=== PATIENT | female | born 1970 | race Caucasian/White ===

== ENCOUNTER 2022-11-08 16:33 | Outpatient (CLI) | payer BC, SELFPAY | END 2022-11-08 16:34 | disposition home or self-care (01) | LOC: NFLDREF 16:35 | PROVIDERS: Visit Provider Family Medicine | DX: Z00.00 Encounter for general adult medical examination without abnormal findings (principal); E11.9 Type 2 diabetes mellitus without complications; I10 Essential (primary) hypertension; R53.83 Other fatigue; E55.9 Vitamin D deficiency, unspecified | CPT/HCPCS: 80048; 80061; 82306; 84443 ==

== ENCOUNTER 2023-06-29 02:46 | Emergency (ER) | payer BC, SELFPAY ==
[2023-06-29 02:52] VITALS: BP 195/87; PULSE 119; RESP 24; TEMP 37.6; O2SAT 95; BMI 28.3
--- NOTE | 2023-06-29 03:16 | ED.GENADULT ---
HPI - General Adult General Chief complaint: Fever Stated complaint: Shaking and cold, dry mouth Time Seen by Provider: 06/29/23 03:16 History of Present Illness HPI narrative: about an hour ago took cold medicine with acetametephen. patient c/o cold symptoms for the past week but tonight felt very weak and chilled. patient denies any sick contacts. patinet reports increased urination frequency and concern of a UTI. feels dehydrated. 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 Has had some increased urinary frequencies well as some mild dysuria. Has not measured any fever. She did take some cold medicine containing acetaminophen, phenylephrine and guaifenesin about an hour ago without relief. No rashes. Denies being short of breath. Denies cough. No sore throat. Related Data Home Medications Medication Instructions Recorded Confirmed aspirin 81 mg tablet,delayed 81 mg PO QPM 11/08/22 06/29/23 release Previous Rx's Medication Instructions Recorded pen needle, diabetic 31 gauge x #100 ea 01/17/2311/26 (CareTouch Pen Needle) amlodipine 5 mg tablet 5 mg PO QDAY #90 tabs 05/09/23 ergocalciferol (vitamin D2) 1,250 1,250 mcg PO QWEEK #13 caps 05/09/23 mcg (50,000 unit) capsule gabapentin 300 mg capsule 300 mg PO QHS #90 caps 05/09/23 glyburide 5 mg tablet 5 mg PO QDAY #90 tabs 05/09/23 insulin NPH-regular 70-30 U-100 See Rx Instructions subcut BID #30 05/09/23 insulin 100 unit/mL subcutaneous mL pen (Novolin 70-30 FlexPen U-100 Insulin) lisinopril 40 mg tablet 40 mg PO QDAY #90 tabs 05/09/23 metformin 1,000 mg tablet 1,000 mg PO BIDWMEAL #180 tabs 05/09/23 cephalexin 500 mg capsule 500 mg PO TID 7 days #21 caps 06/29/23 nirmatrelvir 300 mg (150 mg See Rx Instructions PO .COMPLEX 06/29/23 x2)-ritonavir 100 mg tablet,dose #30 ea pack (Paxlovid) Allergies Allergy/AdvReac Type Severity Reaction Status Date / Time No Known Drug Allergies Allergy Verified 06/09/23 18:48 PFSH PFSH Medical History (Updated 06/29/23 @ 19:55 by Santino Crowley MD) Mixed hyperlipidemia ?E78.2 - Mixed hyperlipidemia (ICD-10) Type 2 diabetes mellitus, with long-term current use of insulin ?E11.9 - Type 2 diabetes mellitus without complications (ICD-10) ?Z79.4 - termite control 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) use of insulin (ICD-10) Primary hypertension ?I10 - Essential (primary) hypertension (ICD-10) [place]-Walker grade 2 cystocele ?N81.10 - Cystocele, unspecified (ICD-10) Depression ?F32.A - Depression, unspecified (ICD-10) Diabetic neuropathy ?E11.40 - Type 2 diabetes mellitus with diabetic neuropathy, unspecified (ICD-10) Vitamin D deficiency ?E55.9 - Vitamin D deficiency, unspecified (ICD-10) Surgical History (Updated 05/10/23 @ 15:15 by Demetrius Farris MD) History of vaginal delivery History of 2 sections ?Z98.891 - History of uterine scar from previous surgery (ICD-10) History of tubal ligation (2006) ?Z98.51 - Tubal ligation status (ICD-10) Hx laparoscopic cholecystectomy (04/25/05) ?Z90.49 - Acquired absence of other specified parts of digestive tract (ICD-10) Family History (Updated 12/05/22 @ 11:18 by Yamilet Kay) Father Liver disease Alcohol dependence Brother Diabetes Mother Diabetes Son Family history of testicular cancer, Onset Age: 26 Other No family history of breast cancer No family history of colorectal cancer Social History (Updated 11/10/22 @ 23:36 by Demetrius Farris MD) Narrative: , three kids, 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 Breathing is subtly labored. No ketones detected. Is shivering. Skin is warm and dry. No rash. Heart is tachycardic in a regular rhythm. Lungs are clear. Oropharynx is moist. Come nerves 2 through 12 intact. Well-perfused peripherally. Abdomen is soft and nontender including flanks. She is sore to palpation in the upper back. Const: Vital Signs, click to edit/add: Vital Signs - 24 hr 06/29/23 02:52 Temperature 99.6 F Pulse Rate [Pulse Oximeter] 119 H Respiratory Rate 24 Blood Pressure [Ri ght Upper Arm] 195/87 H Pulse Oximetry 95 Oxygen Delivery Me thod Room Air Documenting provider has reviewed patient's vital signs: yes Course Vital Signs Vital signs: Initial Vital Signs Temperature 99.6 F 06/29/23 02:52 Temperature Source Oral 06/29/23 02:52 Pulse Rate 119 H 06/29/23 02:52 Respiratory Rate 24 06/29/23 02:52 Blood Pressure 195/87 H 06/29/23 02:52 Blood Pressure Mean 123 H 06/29/23 02:52 Blood Pressure Position Supine 06/29/23 02:52 Pulse Oximetry 95 06/29/23 02:52 Oxygen Delivery Method Room Air 06/29/23 02:52 Vital Signs Temperature 99.6 F 06/29/23 02:52 Pulse Rate 119 H 06/29/23 02:52 Respiratory Rate 24 06/29/23 02:52 Blood Pressure 195/87 H 06/29/23 02:52 Pulse Oximetry 95 06/29/23 02:52 Oxygen Delivery Method Room Air 06/29/23 02:52 Temperature 99.0 F 06/29/23 03:42 Pulse Rate 119 H 06/29/23 02:52 Respiratory Rate 24 06/29/23 02:52 Blood Pressure 195/87 H 06/29/23 02:52 Pulse Oximetry 95 06/29/23 02:52 Oxygen Delivery Method Room Air 06/29/23 02:52 Medications Administered Medications: Discontinued Medications Generic Name Dose Route Start Last Admin Trade Name Freq PRN Reason Stop Dose Admin Sodium Chloride 1,000 mls @ 1,000 mls/hr 06/29/23 03:50 06/29/23 04:19 0.9 % Sodium Chloride 1000 Ml IV 06/29/23 04:49 1,000 mls/hr .Q1H ONE Administration Ceftriaxone Sodium 1 gm/ 100 mls @ 200 mls/hr 12/17/23 03:50 06/29/23 04:19 Sodium Chloride IVPB 06/29/23 03:51 200 mls/hr ONCE ONE Administration Ibuprofen 800 mg 06/29/23 03:24 06/29/23 03:42 Ibuprofen 400 Mg Tablet PO 06/29/23 03:25 800 mg ONCE ONE Administration Medical Decision Making MDM Narrative Medical decision making narrative: I would suspect influenza here. Will triple swab. Also check urinalysis. Give ibuprofen. If urinalysis positive for infection might warrant further treatment with IV fluids and other lab work, particularly in the setting of diabetes Urinalysis does appear to be positive. Given symptoms I would have concern about more significant urinary tract infection. Symptoms also seem consistent with concurrent influenza or COVID infection Will collect blood cultures. Fluids. Rocephin Indeed positive for COVID. Have screened medications. Will initiate Paxlovid Urine blood cultures are pending. White count just a little more than 10,000 On reassessment following IV fluids and ibuprofen, does look improved, more comfortable. Blood pressure, pulse improved. Will continue on cephalexin pending results of cultures See patient discharge plan Lab Data Lab results reviewed: Yes I reviewed the patient's lab results Labs: Lab Results 06/29/23 06/29/23 06/29/23 Range/Units 00:40 03:06 03:07 WBC 10.45 (4.50-11.00) K/uL RBC 4.35 (4.00-5.20) m/uL Hgb 12.5 (12.0-16.0) gm/dL Hct 36.9 (33.0-51.0) % MCV 85 (80-100) fL MCH 29 (26-34) pg MCHC 34 (32-36) gm/dL RDW Coeff of [place] 12.9 (11.5-15.5) % Plt Count 238 (140-440) K/uL Neut % (Auto) 89.1 H (42.0-72.0) % Lymph % (Auto) 9.2 L (20-44) % [place] % (Auto) 0.4 (0.0-11.0) % Eos % (Auto) 0.2 (0.0-7.0) % Baso % (Auto) 0.1 (0.0-3.0) % Neut # (Auto) 9.30 H (1.7-7.0) K/uL Lymph # (Auto) 1.00 (0.90-2.90) K/uL [place] # (Auto) 0.00 (0.00-0.90) K/UL Eos # (Auto) 0.02 (0.00-0.50) K/uL Baso # (Auto) 0.01 (0.00-0.30) K/uL Abs Immat Gran (auto) 0.10 (0.00-0.30) K/uL Imm/Tot Granulo (auto) 1.0 % Diff Slide Review (Acceptable) Sodium 134 L (135-149) mmol/L Potassium 3.7 (3.6-5.1) mmol/L Chloride 102 (96-114) mmol/L Carbon Dioxide 18 L (20-32) mmol/L Anion Gap 14 (7-15) mEq/L BUN 21 (7-30) mg/dL Creatinine 0.6 (0.5-1.5) mg/dL Estimated Creat Clear 76.99 Estimated GFR 107 ml/min Glucose 304 H (60-115) mg/dL Calcium 8.8 (8.4-10.6) mg/dL Urine Color (Yellow) Urine Appearance (Clear) Urine pH (5.0-8.5) Ur Specific [place] (1.000-1.030) Urine Protein (Negative) Urine Glucose (UA) (Negative) Urine Ketones (Negative) Urine Blood (Negative) Urine Nitrite (Negative) Urine Bilirubin (Negative) Urine Urobilinogen (0.2-1.0) Ur Leukocyte Esterase (Negative) Urine RBC (0-2) Urine WBC (0-5) Ur Squamous Epith Cells (None-Few) Urine Bacteria (None) Fine Granular Casts (None) SARS-CoV-2 (PCR) POSITIVE SARS-CoV-2 A (Negative) Influenza Type A (PCR) Negative PCR FLU A (Negative) Influenza Type B (PCR) Negative PCR FLU B (Negative) RSV (PCR) Negative PCR RSV (Negative) Group A Strep DNA (Not Detectd) 06/29/23 Range/Units 03:24 WBC (4.50-11.00) K/uL RBC (4.00-5.20) m/uL Hgb (12.0-16.0) gm/dL Hct (33.0-51.0) % MCV (80-100) fL MCH (26-34) pg MCHC (32-36) gm/dL RDW Coeff of [place] (11.5-15.5) % Plt Count (140-440) K/uL Neut % (Auto) (42.0-72.0) % Lymph % (Auto) (20-44) % [place] % (Auto) (0.0-11.0) % Eos % (Auto) (0.0-7.0) % Baso % (Auto) (0.0-3.0) % Neut # (Auto) (1.7-7.0) K/uL Lymph # (Auto) (0.90-2.90) K/uL [place] # (Auto) (0.00-0.90) K/UL Eos # (Auto) (0.00-0.50) K/uL Baso # (Auto) (0.00-0.30) K/uL Abs Immat Gran (auto) (0.00-0.30) K/uL Imm/Tot Granulo (auto) % Diff Slide Review (Acceptable) Sodium (135-149) mmol/L Potassium (3.6-5.1) mmol/L Chloride (96-114) mmol/L Carbon Dioxide (20-32) mmol/L Anion Gap (7-15) mEq/L BUN (7-30) mg/dL Creatinine (0.5-1.5) mg/dL Estimated Creat Clear Estimated GFR ml/min Glucose (60-115) mg/dL Calcium (8.4-10.6) mg/dL Urine Color Yellow (Yellow) Urine Appearance Cloudy A (Clear) Urine pH 6.0 (5.0-8.5) Ur Specific [place] 1.025 (1.000-1.030) Urine Protein 3+ A (Negative) Urine Glucose (UA) 2+ A (Negative) Urine Ketones Negative (Negative) Urine Blood 1+ A (Negative) Urine Nitrite Positive A (Negative) Urine Bilirubin Negative (Negative) Urine Urobilinogen 0.2 (0.2-1.0) Ur Leukocyte Esterase Negative (Negative) Urine RBC 0-2 (0-2) Urine WBC 25-50 A (0-5) Ur Squamous Epith Cells Few (None-Few) Urine Bacteria Moderate A (None) Fine Granular Casts Few A (None) SARS-CoV-2 (PCR) (Negative) Influenza Type A (PCR) (Negative) Influenza Type B (PCR) (Negative) RSV (PCR) (Negative) Group A Strep DNA NOT DETECTED (Not Detectd) Discharge Plan Discharge Clinical Impression: COVID-19, Cystitis Patient Disposition: Home, Self-Care Condition: Improved Additional Instructions: You will need to watch and treat your blood sugars carefully. Focus on hydration with water. We do not have the medication for COVID in the med box in our lobby so I have sent in that prescription and an antibiotic for you to your pharmacy. Can take up to 800 mg of ibuprofen per dose or up to 1000 mg of acetaminophen per dose. Deber? vigilar y tratar harrison niveles de az?car en la zack con cuidado. Enf?tonya en la hidrataci?n con agua. No tenemos el medicamento para COVID en la caja de medicamentos en nuestro vest?bulo, as? que le envi? yas receta y un antibi?tiburcio a coreas farmacia. Puede arslan hasta 800 mg de ibuprofeno por dosis o hasta 1000 mg de paracetamol por dosis. Prescriptions: New Paxlovid 300 mg (150 mg x 2)-100 mg tablets,dose pack See Rx Instructions .ROUTE .COMPLEX Qty: 30 0RF Rx Instructions: take TWO 150 mg tablets of nirmatrelvir with ONE 100 mg tablet of ritonavir twice daily for 5 days cephalexin 500 mg capsule 500 mg PO TID 7 Days Qty: 21 0RF No Action aspirin 81 mg tablet,delayed release (DR/EC) 81 mg PO QPM (DME) pen needle, diabetic [CareTouch Pen Needle] 31 gauge x 5/16 needle See Rx Instructions .Route Qty: 100 5RF Rx Instructions: Injects BID ergocalciferol (vitamin D2) 1,250 mcg (50,000 unit) capsule 1,250 mcg PO QWEEK Qty: 13 3RF gabapentin 300 mg capsule 300 mg PO QHS Qty: 90 3RF glyburide 5 mg tablet 5 mg PO QDAY Qty: 90 1RF Novolin 70-30 FlexPen U-100 100 unit/mL (70-30) insulin pen See Rx Instructions subcut BID Qty: 30 5RF Rx Instructions: subcutaneously twice a day; 40 units am and 35 units pm lisinopril 40 mg tablet 40 mg PO QDAY Qty: 90 3RF amlodipine 5 mg tablet 5 mg PO QDAY Qty: 90 1RF metformin 1,000 mg tablet 1,000 mg PO BIDWMEAL Qty: 180 1RF Follow Up/Referrals: Demetrius Farris MD [Primary Care Provider] - Stand Alone Forms: [facility] Info Instructions
[2023-06-29 03:39] LABS: Appearance Urine Cloudy (Clear); Bilirubin Urine Negative (Negative); Blood Urine 1+ (Negative); Color Urine Yellow (Yellow); Glucose Urine 2+ (Negative); Ketones Urine Negative (Negative); Leukocyte Esterase Urine Negative (Negative); Nitrite Urine Positive (Negative); Protein Urine 3+ (Negative); Specific Gravity Urine 1.025 (1.000-1.030); Urobilinogen Urine 0.2 (0.2-1.0)
[2023-06-29 03:42] VITALS: TEMP 37.2
[2023-06-29] MEDS: IBUPROFEN 400 MG TABLET 800 MG PO (03:42)
[2023-06-29 03:47] LABS: Bacteria Urine Moderate; RBC Urine 0-2 (0-2); Squamous Epithelial Cell Urine Few (None-Few); WBC Urine 25-50 (0-5)
[2023-06-29 03:48] LABS: Fine Granular Casts Urine Few
[2023-06-29 04:03] LABS: PCR FLU A Negative PCR FLU A (Negative); PCR FLU B Negative PCR FLU B (Negative); PCR RSV Negative PCR RSV (Negative)
[2023-06-29 04:14] LABS: SARS PCR* POSITIVE SARS-CoV-2 (Negative)
[2023-06-29 04:14] LABS: Strep A DNA Probe* NOT DETECTED (Not Detectd)
[2023-06-29 04:16] LABS: Basophils Absolute Auto 0.01 K/uL (0.00-0.30); Basophils Percent Auto 0.1 % (0.0-3.0); Eosinophils Absolute Auto 0.02 K/uL (0.00-0.50); Eosinophils Percent Auto 0.2 % (0.0-7.0); Hematocrit 36.9 % (33.0-51.0); Hemoglobin* 12.5 gm/dL (12.0-16.0); Lymphocytes Percent Auto 9.2 % (20-44); Mean Corpuscular HGB Conc 34 gm/dL (32-36); Mean Corpuscular Hemoglobin 29 pg (26-34); Mean Corpuscular Volume 85 fL (80-100); Monocytes Percent Auto 0.4 % (0.0-11.0); Neutrophils Percent Auto 89.1 % (42.0-72.0); Platelet Count* 238 K/uL (140-440); RDW Coefficient of Variation % 12.9 % (11.5-15.5); Red Blood Count 4.35 m/uL (4.00-5.20); White Blood Count* 10.45 K/uL (4.50-11.00)
[2023-06-29] MEDS: 0.9 % SODIUM CHLORIDE 1000 ml 1,000 ML IV (04:19)
[2023-06-29] MEDS: cefTRIAXone 1 GM in 0.9 % SODIUM CHLORIDE Mini-bag 100 ML IVPB (04:19)
[2023-06-29 04:20] LABS: Slide Review Reflex Yes
[2023-06-29 04:28] LABS: Chloride* 102 mmol/L (96-114); Potassium* 3.7 mmol/L (3.6-5.1); Sodium* 134 mmol/L (135-149)
[2023-06-29 04:31] LABS: Anion Gap 14 mEq/L (7-15); Blood Urea Nitrogen* 21 mg/dL (7-30); Calcium* 8.8 mg/dL (8.4-10.6); Carbon Dioxide* 18 mmol/L (20-32); Creatinine* 0.6 mg/dL (0.5-1.5); Est. Creatinine Clearance* 76.99; Estimated Glomerular Filt Rate 107 ml/min; Glucose* 304 mg/dL (60-115)
--- NOTE | 2023-06-29 10:14 | ED.NURSE ---
[facility] called for date of diagnosis, when symptoms started and kidney function before they fill paxlovid prescription
--- NOTE | 2023-06-29 16:30 | ED.NURSE ---
Critical recieved from lab, gram negative rods in both sets of blood cultures.
--- NOTE | 2023-06-29 16:31 | ED.NURSE ---
that is on site in the ER is aware.
--- NOTE | 2023-06-29 16:33 | ED.NURSE ---
Called pt phone number on file to notify pt for blood cultures and to come back for re-evaluation. Went to voicemail, left a voicemail for pt.
--- NOTE | 2023-06-30 20:32 | ED_ITS ---
ED Chart Note Chart Note Details Date: 06/30/23 Details: Received information from lab regarding blood cultures. Confirmed with labs that all sets of cultures have gone positive for E coli. Ms. Herron did return later the 1st day of treatment on the as was noted to be growing Gram- negative rods. Was given a 2nd dose of Rocephin and told to continue with antibiotics. Lactate at that time I believe was 1.2. White count however had doubled from 10,000 to a little over 21,000. Was no longer tachycardic as well on that 2nd presentation. I reviewed blood cultures confirming E coli in a row back and anaerobic cultures, 2 sets as well as urine. Sensitivities would suggest appropriate treatment with cephalexin that she was prescribed. I do call Ms. Herron to inquire as to her well-being. She reports feeling much better than yesterday. Is no longer chilled. She says she is not having a rapid heart rate. She is not nauseated. Is monitoring blood sugars. Has improved energy. Given subjective improvement it would appear that can continue current treatment. Discussed that if begins to feel worse, chilled/driving fevers, that she should present again for evaluation.
== END 2023-06-29 05:56 | disposition home or self-care (01) ==
PROVIDERS: Emergency Provider Family Medicine; PCP Family Medicine
DX: U07.1 COVID-19 (principal); N30.90 Cystitis, unspecified without hematuria
CPT/HCPCS: 36415; 80048; 81001; 83605; 85025; 87040; 87086; 87186; 87631; 87651; 95992; 96365; 96366; 99284; A9270; J0696; J7030

== ENCOUNTER 2023-06-29 19:16 | Emergency (ER) | payer BC, SELFPAY ==
[2023-06-29 19:39] VITALS: BP 135/73; PULSE 98; RESP 16; TEMP 36.4; O2SAT 97; BMI 28.5
--- NOTE | 2023-06-29 19:51 | ED_ITS ---
HPI - General Adult General Chief complaint: Unspecified Complaint, Adult Stated complaint: abnormal lab results Time Seen by Provider: 06/29/23 19:26 History of Present Illness HPI narrative: This 53-year-old female was seen early this morning in this emergency department and diagnosed with a urinary tract infection. She received a g of Rocephin intravenously and states that she is feeling better. A blood culture results returned positive for a Gram-negative ryan so the patient was instructed to come in here again for recheck. She arrives here with normal vital signs and has not had any fevers. She states that she is feeling better. Related Data Home Medications Medication Instructions Recorded Confirmed aspirin 81 mg tablet,delayed 81 mg PO QPM 11/08/22 06/29/23 release Previous Rx's Medication Instructions Recorded pen needle, diabetic 31 gauge x #100 ea 01/17/2311/26 (CareTouch Pen Needle) amlodipine 5 mg tablet 5 mg PO QDAY #90 tabs 05/09/23 ergocalciferol (vitamin D2) 1,250 1,250 mcg PO QWEEK #13 caps 05/09/23 mcg (50,000 unit) capsule gabapentin 300 mg capsule 300 mg PO QHS #90 caps 05/09/23 glyburide 5 mg tablet 5 mg PO QDAY #90 tabs 05/09/23 insulin NPH-regular 70-30 U-100 See Rx Instructions subcut BID #30 05/09/23 insulin 100 unit/mL subcutaneous mL pen (Novolin 70-30 FlexPen U-100 Insulin) lisinopril 40 mg tablet 40 mg PO QDAY #90 tabs 05/09/23 metformin 1,000 mg tablet 1,000 mg PO BIDWMEAL #180 tabs 05/09/23 cephalexin 500 mg capsule 500 mg PO TID 7 days #21 caps 06/29/23 nirmatrelvir 300 mg (150 mg See Rx Instructions PO .COMPLEX 06/29/23 x2)-ritonavir 100 mg tablet,dose #30 ea pack (Paxlovid) Allergies Allergy/AdvReac Type Severity Reaction Status Date / Time No Known Drug Allergies Allergy Verified 06/09/23 18:48 Review of Systems Status of ROS: Reports: 10 or more systems reviewed and unremarkable except as noted in History and below Narrative: Constitutional: No fevers, no weight gain or loss. Eyes: No discharge. No vision changes. HENT: No congestion, no sore throat, no ear pain. Cardiovascular: No chest pain, no palpitations. Respiratory: No shortness of breath, no wheezes, no cough. Gastrointestinal: No abdominal pain, no vomiting, no diarrhea. Genitourinary: No dysuria, no hematuria. Musculoskeletal: Normal range of motion. Skin: No rashes, no pruritis. Neurological: No dizziness, weakness, sensory change, speech change. Endo/Heme/Allergies: No bruising or bleeding. No polydipsia. Pysch: no suicidality, no anxiety, no insomnia. All other systems reviewed and are negative. [facility] Medical History (Updated 06/29/23 @ 19:55 by Santino Crowley MD) Mixed hyperlipidemia ?E78.2 - Mixed hyperlipidemia (ICD-10) Type 2 diabetes mellitus, with long-term current use of insulin ?E11.9 - Type 2 diabetes mellitus without complications (ICD-10) ?Z79.4 - senior care (current) use of insulin (ICD-10) Primary hypertension ?I10 - Essential (primary) hypertension (ICD-10) [place]-Walker grade 2 cystocele ?N81.10 - Cystocele, unspecified (ICD-10) Depression ?F32.A - Depression, unspecified (ICD-10) Diabetic neuropathy ?E11.40 - Type 2 diabetes mellitus with diabetic neuropathy, unspecified (ICD-10) Vitamin D deficiency ?E55.9 - Vitamin D deficiency, unspecified (ICD-10) Surgical History (Updated 05/10/23 @ 15:15 by Demetrius Farris MD) History of vaginal delivery History of 2 sections ?Z98.891 - History of uterine scar from previous surgery (ICD-10) History of tubal ligation (2006) ?Z98.51 - Tubal ligation status (ICD-10) Hx laparoscopic cholecystectomy (04/25/05) ?Z90.49 - Acquired absence of other specified parts of digestive tract (ICD- 10) Family History (Updated 12/05/22 @ 11:18 by Yamilet Kay) Father Liver disease Alcohol dependence Brother Diabetes Mother Diabetes Son Family history of testicular cancer, Onset Age: 26 Other No family history of breast cancer No family history of colorectal cancer Social History (Updated 11/10/22 @ 23:36 by Demetrius Farris MD) Narrative: , 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 HEENT: Normocephalic, atraumatic. Neck: Normal range of motion. Nontender. Supple. Heart: Regular. No murmurs. Normal rate. Intact distal pulses. Lungs: Clear to auscultation. No chest discomfort. No wheezes, rhonchi, or rale s. Abdomen: Normal bowel sounds. Nontender. No rebound tenderness. Genitalia: Deferred. Back: No midline tenderness. Normal range of motion. Extremities: Normal range of motion. No injury. Skin: Intact. No rash. Warm. No erythema or pallor. Neurologic: No altered sensation. No weakness. Alert and oriented. Psychiatric: No suicidality. No anxiety or depression. No insomnia. Nursing notes and vitals signs are reviewed. Const: Vital Signs, click to edit/add: Vital Signs - 24 hr 06/29/23 19:39 Temperature 97.6 F Pulse Rate [Left P ulse Oximeter] 98 Respiratory Rate 16 Blood Pressure [Ri ght Upper Arm] 135/73 Pulse Oximetry 97 Oxygen Delivery Me thod Room Air Course Vital Signs Vital signs: Initial Vital Signs Temperature 97.6 F 06/29/23 19:39 Temperature Source Temporal Artery Scan 06/29/23 19:39 Pulse Rate 98 06/29/23 19:39 Pulse Rhythm Regular 06/29/23 19:39 Respiratory Rate 16 06/29/23 19:39 Blood Pressure 135/73 06/29/23 19:39 Blood Pressure Mean 93 06/29/23 19:39 Blood Pressure Position Semi-Fowlers 06/29/23 19:39 Pulse Oximetry 97 06/29/23 19:39 Oxygen Delivery Method Room Air 06/29/23 19:39 Vital Signs Temperature 97.6 F 06/29/23 19:39 Pulse Rate 98 06/29/23 19:39 Respiratory Rate 16 06/29/23 19:39 Blood Pressure 135/73 06/29/23 19:39 Pulse Oximetry 97 06/29/23 19:39 Oxygen Delivery Method Room Air 06/29/23 19:39 Temperature 97.6 F 06/29/23 19:39 Pulse Rate 98 06/29/23 19:39 Respiratory Rate 16 06/29/23 19:39 Blood Pressure 135/73 06/29/23 19:39 Pulse Oximetry 97 06/29/23 19:39 Oxygen Delivery Method Room Air 06/29/23 19:39 Medications Administered Medications: Generic Name Dose Route Start Last Admin Trade Name Freq PRN Reason Stop Dose Admin Ceftriaxone Sodium 1 gm 06/29/23 19:50 06/29/23 20:20 Ceftriaxone 1 Gm Vial IM 06/29/23 19:51 1 gm ONCE ONE Administration Lidocaine HCl 2.1 ml 06/29/23 19:50 06/29/23 20:20 Lidocaine 1% 5 Ml (Pf) 5 Ml Vial IM 2.1 ml DIRECTED PRN Administration Pain Medical Decision Making MDM Narrative Medical decision making narrative: This patient was treated with Rocephin for a urinary tract infection early this morning. She states that she is feeling better but returns as she was instructed to do so to recheck as a blood culture returned positive for Gram- negative ryan. The patient has not had any fevers. She did receive an additional dose of Rocephin 1 g intramuscularly. Labs are also recheck it at this visit and returned with lactate level at 1.2. Her white cell count is elevated at around 21. The patient does have normal vital signs with no fever or tachycardia. The patient is okay to return home to continue the prescribed oral medication that she has. I advised her to return if fevers recur or if feeling worse. The patient is agreeable with this plan. Lab Data Labs: Lab Results 06/29/23 Range/Units 20:05 WBC 21.94 H (4.50-11.00) K/uL RBC 4.21 (4.00-5.20) m/uL Hgb 12.1 (12.0-16.0) gm/dL Hct 36.3 (33.0-51.0) % MCV 86 (80-100) fL MCH 29 (26-34) pg MCHC 33 (32-36) gm/dL RDW Coeff of [place] 13.2 (11.5-15.5) % Plt Count 229 (140-440) K/uL Neut % (Auto) 88.5 H (42.0-72.0) % Lymph % (Auto) 6.4 L (20-44) % [place] % (Auto) 4.2 (0.0-11.0) % Eos % (Auto) 0.6 (0.0-7.0) % Baso % (Auto) 0.0 (0.0-3.0) % Neut # (Auto) 19.40 H (1.7-7.0) K/uL Lymph # (Auto) 1.40 (0.90-2.90) K/uL [place] # (Auto) 0.90 (0.00-0.90) K/UL Eos # (Auto) 0.10 (0.00-0.50) K/uL Baso # (Auto) 0.00 (0.00-0.30) K/uL Abs Immat Gran (auto) 0.10 (0.00-0.30) K/uL Imm/Tot Granulo (auto) 0.3 % Lactate 1.2 (0.5-1.9) mmol/L Discharge Plan Discharge Clinical Impression: Urinary tract infection, Blood bacterial culture positive Patient Disposition: Home, Self-Care Condition: Stable Additional Instructions: Continue current plans. Follow up with MD return if worsening symptoms happen. Prescriptions: No Action aspirin 81 mg tablet,delayed release (DR/EC) 81 mg PO QPM (DME) pen needle, diabetic [CareTouch Pen Needle] 31 gauge x 5/16 needle See Rx Instructions .Route Qty: 100 5RF Rx Instructions: Injects BID ergocalciferol (vitamin D2) 1,250 mcg (50,000 unit) capsule 1,250 mcg PO QWEEK Qty: 13 3RF gabapentin 300 mg capsule 300 mg PO QHS Qty: 90 3RF glyburide 5 mg tablet 5 mg PO QDAY Qty: 90 1RF Novolin 70-30 FlexPen U-100 100 unit/mL (70-30) insulin pen See Rx Instructions subcut BID Qty: 30 5RF Rx Instructions: subcutaneously twice a day; 40 units am and 35 units pm lisinopril 40 mg tablet 40 mg PO QDAY Qty: 90 3RF amlodipine 5 mg tablet 5 mg PO QDAY Qty: 90 1RF metformin 1,000 mg tablet 1,000 mg PO BIDWMEAL Qty: 180 1RF Paxlovid 300 mg (150 mg x 2)-100 mg tablets,dose pack See Rx Instructions .ROUTE .COMPLEX Qty: 30 0RF Rx Instructions: take TWO 150 mg tablets of nirmatrelvir with ONE 100 mg tablet of ritonavir twice daily for 5 days cephalexin 500 mg capsule 500 mg PO TID 7 Days Qty: 21 0RF Follow Up/Referrals: Demetrius Farris MD [Primary Care Provider] - Stand Alone Forms: [facility] Info Instructions
[2023-06-29 20:11] LABS: Lactate* 1.2 mmol/L (0.5-1.9)
[2023-06-29 20:15] LABS: Eosinophils Percent Auto 0.6 % (0.0-7.0); Hematocrit 36.3 % (33.0-51.0); Hemoglobin* 12.1 gm/dL (12.0-16.0); Immature Granulocytes Pct Auto 0.3 %; Lymphocytes Percent Auto 6.4 % (20-44); Mean Corpuscular HGB Conc 33 gm/dL (32-36); Mean Corpuscular Hemoglobin 29 pg (26-34); Mean Corpuscular Volume 86 fL (80-100); Monocytes Percent Auto 4.2 % (0.0-11.0); Neutrophils Percent Auto 88.5 % (42.0-72.0); Platelet Count* 229 K/uL (140-440); RDW Coefficient of Variation % 13.2 % (11.5-15.5); Red Blood Count 4.21 m/uL (4.00-5.20); White Blood Count* 21.94 K/uL (4.50-11.00)
[2023-06-29] MEDS: cefTRIAXone 1 GM VIAL IM (20:20)
[2023-06-29] MEDS: LIDOCAINE 1% 5 ml (pf) 5 ML VIAL 2.1 ML IM (20:20)
[2023-06-29 20:23] LABS: Slide Review Reflex No
== END 2023-06-29 21:03 | disposition home or self-care (01) ==
LOC: ED 19:56
PROVIDERS: Emergency Provider Emergency Medicine Emergency Medical Services; PCP Family Medicine
DX: U07.1 COVID-19 (principal)
CPT/HCPCS: 36415; 83605; 85025; 95992; 99284; J0696

== ENCOUNTER 2023-08-01 09:42 | Outpatient (CLI) | payer BC, SELFPAY ==
--- OUTSIDE RECORDS SUMMARY | 2023-08-01 09:45 | XMS_ITS | Clinical Summary ---
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 Increase to 2 pills after 5 days if not improving. 60 capsule 12 06/12/2016 Active ferrous sulfate 325 mg delayed release tabletIndications:I mukesh deficiency anemia, unspecified Take 1 tablet by mouth once daily with a meal. 90 tablet 4 06/12/2016 Active fluconazole (DIFLUCAN) 150 mg tabletIndications:V aginal itching One pill by mouth today, repeat on friday 2 tablet 1 01/31/2017 Active blood sugar diagnostic (GLUCOCARD 01 SENSOR PLUS) stripIndications:In sulin dependent type 2 diabetes mellitus, uncontrolled As directed. Dispense test strips covered by the patient insurance. Test 3 times per day. 100 Each 4 02/12/2017 Active lisinopril (PRINIVIL; ZESTRIL) 20 mg tabletIndications:U ncontrolled hypertension Take 1 tablet by mouth once daily. 90 tablet 4 02/12/2017 Active metFORMIN (GLUCOPHAGE) 1,000 mg tabletIndications:D M (diabetes mellitus) with complications (HC) Take 1 tablet by mouth 2 times daily with meals. 180 tablet 3 02/12/2017 Active insulin NPH human recomb (NOVOLIN N) 100 unit/mL susp injectionIndication s:DM (diabetes mellitus) with complications (HC) 20-25 units at breakfast and 35-40 units at dinner. Adjust per clinic instructions 2 Vial 20 02/12/2017 Active rosuvastatin (CRESTOR) 10 mg tablet Take 1 tablet by mouth at bedtime. 90 tablet 3 02/25/2017 Active Active Problems Problem Noted Date Diagnosed Date Hyperlipidemia, unspecified 03/16/2016 Diabetic peripheral neuropathy 03/16/2016 Major depression in partial remission 10/25/2008 Unspecified essential hypertension 10/14/2006 DIABETES TYPE II WITH COMPLICATION 08/25/2002 Immunizations Name Administration Dates Next Due HepA-HepB (Twinrix) 09/17/2013 Influenza A (H1N1), Inactiva patel (Age >=3 Years) 07/11/2009 Influenza, IIV3 (Age >=3 years) 05/18/2013,04/20,07/11/2009 Td, Preservative Free (age >= 7 Years) 7 Tdap 01/31/2017 Family History Medical History Relation Name Comments Diabetes Brother Alcoholism Father at 44 Cirrhosis Father Anemia Mother whe n patient [age] year old. Testicular cancer Other son at 26- did well Cancer-breast No Family History Cancer-colon No Family History Relation Name Status Comments Brother Father Mother Other Social History Tobacco Use Types Packs/Day Years Used Date Smoking Tobacco: Never Smokeless Tobacco: Never Tobacco Cessation:Counseling Given: Yes Alcohol Use Standard Drinks/Week Comments No 0 (1 standard drink = 0.6 oz pur e alcohol) Sex and Gender Information Value Date Recorded Sex Assigned at Not on file Gender Identity Not on file Sexual Orientation Not on file Obstetrics History Para Term AB IAB SAB Ectopic Multiple Livin g Live Births 4 3 3 1 1 3 Date Outcome GA Total Labor Labor/2nd/3rd Weight Sex Delivery Anes PTL Jennyfer A1 A5 Name Cl in Term Term SAB Term Comments Vaginal, then 2 C/S Last Filed Vital Signs Vital Sign Reading Time Taken Comments Blood Pressure 128/75 02/12/2017 1:47 PM CDT Pulse 91 02/12/2017 1:44 PM CDT Temperature 36.5 ??C (97.7 ??F) 01/31/2017 3:37 PM CD T Respiratory Rate - - Oxygen Saturation 97% 01/31/2017 3:37 PM CDT Inhaled Oxygen Concentration - - Weight 68 kg (150 lb) 02/12/2017 1:44 PM CDT Height 149.2 cm (4' 10.75) 01/31/2017 3:37 PM C DT Body Mass Index 30.55 01/31/2017 3:37 PM CDT Plan of Treatment Health Maintenance Due Date Last Done Comments COVID-19 vaccine series (#1) 1969 HIV for age 15-65 1984 Hepatitis C screening for age 18-79 1987 Colonoscopy through age 75 2014 BMI (ht and wt on same day) for age 18+ 01/31/2018 01/31/2017, 11/27/2016, 08/28/2016, Additional history exists Depression screening for age 12+ 01/31/2018 01/31/2017, 01/12/2016 Zoster (shingles) series for age 50+ (1 of 2) 2019 Mammogram for age 45-75 02/13/2022 02/14/20 21, 01/31/2017, 01/19/2016, Additional history exists Influenza for age 50-64 03/14/2023 05/18/20 13, 04/20/2010, 07/11/2009, Additional history exists Pap test for age 21-65 01/18/2024 1, 01/17/2021, 01/12/2016, Additional history exists Tetanus booster 01/31/2027 01/31/2017, 05/22/2007 Lipids for age 45-75 02/06/2027 02/06/2022, 06/10/2016, 02/27/2015, Additional history exists Tdap Completed 01/31/2017 Pneumococcal series for age 6-64 Aged Out No longer eligible based on patient's age to complete this topic
--- NOTE | 2023-08-01 10:15 | CRLHL7_ITS ---
For Patients: As a result of the Century Cures Act, medical imaging exams and procedure reports are released immediately into your electronic medical record. You may view this report before your referring provider. If you have questions, please contact your health care provider. BILATERAL SCREENING MAMMOGRAM WITH COMPUTER-AIDED DETECTION AND TOMOSYNTHESIS TECHNIQUE: CC and MLO views were obtained. These mammographic images have been obtained using full-field digital technique. These mammographic images were interpreted with the benefit of computer-aided detection. Breast Tomosynthesis was used in this interpretation. COMPARISON FILM: 02/13/21, 01/31/17, 01/19/16. FINDINGS: There are scattered areas of fibroglandular density. IMPRESSION: There is no radiographic evidence for malignancy. ASSESSMENT: BI-RADS Category 1: Negative RECOMMENDATION: Routine screening mammogram in 1 year. A lay language report of this examination will be provided to the patient. Demetrius Serrano M.D. Diagnostic Radiologist [email or web address] SP/Dictated by: Demetrius Serrano MD @ 08/01/2023 12:09:00 PM (Electronically Signed)
== END 2023-08-01 09:43 | disposition home or self-care (01) ==
LOC: MAMMO 09:42
PROVIDERS: PCP Family Medicine; Visit Provider Family Medicine
DX: Z12.31 Encounter for screening mammogram for malignant neoplasm of breast (principal)
CPT/HCPCS: 77063; 77067; T1013

== ENCOUNTER 2023-08-15 16:02 | Outpatient (CLI) | payer BC, SELFPAY | END 2023-08-15 16:03 | disposition home or self-care (01) | PROVIDERS: PCP Family Medicine; Visit Provider Family Medicine | DX: E55.9 Vitamin D deficiency, unspecified (principal); E11.9 Type 2 diabetes mellitus without complications; E78.2 Mixed hyperlipidemia; I10 Essential (primary) hypertension; Z79.4 Long term (current) use of insulin | CPT/HCPCS: 80076; 82306 ==

== ENCOUNTER 2024-01-12 19:38 | Emergency (ER) | payer BC, SELFPAY ==
[2024-01-12 19:59] VITALS: BP 160/80; PULSE 124; RESP 18; TEMP 36.6; O2SAT 98
--- NOTE | 2024-01-12 20:42 | ED.NAVMDI ---
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 No cough, no fever. Took Tylenol for this earlier. No recorded fever. Denies abdominal pain, chest pain, cough, runny nose, does have a headache. No known ill contacts. <Lul Denson MD - Last Filed: 01/12/24 23:51> Related Data Home medications: Home Medications ?Medication ?Instructions ?Recorded ?Confirmed aspirin 81 mg tablet,delayed 81 mg PO QPM 11/08/22 11/21/23 release Previous Rx's ?Medication ?Instructions ?Recorded pen needle, diabetic 31 gauge x #100 ea 01/17/2311/26 (CareTouch Pen Needle) ergocalciferol (vitamin D2) 1,250 1,250 mcg PO QWEEK #13 caps 05/09/23 mcg (50,000 unit) capsule lisinopril 40 mg tablet 40 mg PO QDAY #90 tabs 05/09/23 amlodipine 10 mg tablet 10 mg PO QDAY #90 tabs 08/15/23 ondansetron 4 mg disintegrating 4 mg PO Q6H #5 tabs 10/24/23 tablet gabapentin 100 mg capsule 100 mg PO BID #60 caps 11/21/23 gabapentin 300 mg capsule 600 mg (2 x 300 mg) PO QPM #180 11/21/23 caps glyburide 5 mg tablet 5 mg PO QDAY #90 tabs 11/21/23 insulin NPH-regular 70-30 U-100 40 unit (0.4 mL) subcut BID #60 mL 11/21/23 insulin 100 unit/mL subcutaneous pen (Novolin 70-30 FlexPen U-100 Insulin) metformin 1,000 mg tablet 1,000 mg PO BIDWMEAL #180 tabs 11/21/23 naproxen 500 mg tablet 500 mg PO BID #180 tabs 11/21/23 ciprofloxacin HCl 500 mg tablet 500 mg PO Q12H #10 tabs 01/13/24 ondansetron 4 mg disintegrating 4 mg PO Q8H PRN nausea and 01/13/24 tablet vomiting #7 tabs <Lul Denson MD - Last Filed: 01/12/24 23:51> Allergies/Adverse reactions: Allergies Allergy/AdvReac Type Severity Reaction Status Date / Time No Known Drug Allergies Allergy Verified 11/21/23 14:21 <Lul Denson MD - Last Filed: 01/12/24 23:51> [facility] Medical History: Medical History (Updated 01/13/24 @ 00:52 by Marcella Ortega MD) COVID-19 ?U07.1 - COVID-19 (ICD-10) Mixed hyperlipidemia ?E78.2 - Mixed hyperlipidemia (ICD-10) Type 2 diabetes mellitus, with long-term current use of insulin ?E11.9 - Type 2 diabetes mellitus without complications (ICD-10) ?Z79.4 - MCFP (current) use of insulin (ICD-10) Primary hypertension ?I10 - Essential (primary) hypertension (ICD-10) [place] grade 2 cystocele ?N81.10 - Cystocele, unspecified (ICD-10) Depression ?F32.A - Depression, unspecified (ICD-10) Diabetic neuropathy ?E11.40 - Type 2 diabetes mellitus with diabetic neuropathy, unspecified (ICD-10) Vitamin D deficiency ?E55.9 - Vitamin D deficiency, unspecified (ICD-10) <Lul Denson MD - Last Filed: 01/12/24 23:51> Surgical History: Surgical History History of vaginal delivery History of 2 sections ?Z98.891 - History of uterine scar from previous surgery (ICD-10) History of tubal ligation (2006) ?Z98.51 - Tubal ligation status (ICD-10) Hx laparoscopic cholecystectomy (04/25/05) ?Z90.49 - Acquired absence of other specified parts of digestive tract (ICD-10) <Lul Denson MD - Last Filed: 01/12/24 23:51> Family History: Family History Father Liver disease Alcohol dependence Brother Diabetes Mother Diabetes Son Family history of testicular cancer, Onset Age: 26 Other No family history of breast cancer No family history of colorectal cancer <Lul Denson MD - Last Filed: 01/12/24 23:51> Social History: Social History Narrative: , three kids, 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 [employer], nonsmoker, no EtOH Smoking Status: Never smoker Do you use any of these nicotine containing products: None Second hand tobacco smoke exposure: No How often do you have a drink containing alcohol: never AUDIT-C Alcohol total score: 0 Non-prescribed substance use: denies use Little interest or pleasure in doing things: not at all Feeling down, depressed, or hopeless: not at all service: No <Lul Denson MD - Last Filed: 01/12/24 23:51> Exam Narrative: Exam Narrative: General: Well-developed and well-nourished, no acute distress Head: Atraumatic and normocephalic Eyes: Pupils are equal reactive, extraocular motions intact, conjunctiva clear ENT: External nose and ears are normal, posterior pharynx without erythema or exudate Neck: No midline cervical tenderness, full spontaneous range of motion the neck, trachea midline, no adenopathy Heart: Tachycardic but regular Lungs: Clear to auscultation bilaterally without wheezes or crackles Abdomen: Soft, mild upper abdominal tenderness, nondistended with active bowel sounds Musculoskeletal: No tenderness, deformity, or edema Neurologic: Awake, alert, and oriented x3, no gross focal neurologic deficits, cranial nerves intact as tested Psych: Mood and affect are appropriate Skin: No rashes <Lul Denson MD - Last Filed: 01/12/24 23:51> Const: Vital Signs, click to edit/add: Vital Signs - 24 hr 01/12/24 19:59 Temperature 98 F Pulse Rate [Pulse Oximeter] 124 H Respiratory Rate 18 Blood Pressure [Ri ght Upper Arm] 160/80 H Pulse Oximetry 98 Oxygen Delivery Me thod Room Air <Lul Denson MD - Last Filed: 01/12/24 23:51> Vital Signs, click to edit/add: Vital Signs - 24 hr 01/12/24 19:59 Temperature 98 F Pulse Rate [Pulse Oximeter] 124 H Respiratory Rate 18 Blood Pressure [Ri ght Upper Arm] 160/80 H Pulse Oximetry 98 Oxygen Delivery Me thod Room Air <Marcella Ortega MD - Last Filed: 01/13/24 01:02> Course Course ED Course: Patient seen and examined, reviewed prior urgent care note from October 23 when patient was seen with viral gastroenteritis and treated symptomatically. Patient presents today with nausea and chills. Did vomit once today. On exam, has some upper abdominal tenderness, otherwise normal exam. Labs are ordered along with fluids, Zofran, and Toradol. <Lul Denson MD - Last Filed: 01/12/24 23:51> Reevaluation(s) Time of Reevaluation #1: 23:09 <Lul Denson MD - Last Filed: 01/12/24 23:51> Reevaluation #1: Labs ordered independently interpreted by me with normal white blood cell count at 5.6 although there is a 91% left shift, normal basic panel other than glucose of 253, lactate slightly elevated 2.3. AST 52, alkaline phosphatase 369, lipase is normal. Respiratory panel is negative. CT scan as well as urinalysis pending. <Lul Denson MD - Last Filed: 01/12/24 23:51> Time of Reevaluation #2: 23:50 <Lul Denson MD - Last Filed: 01/12/24 23:51> Reevaluation #2: Sign out to oncoming provider pending urinalysis and CT scan results, disposition <Lul Denson MD - Last Filed: 01/12/24 23:51> Reevaluation #3: Dr. Ortega- Accepted care from Dr. Simpson. Patient has just gone down to CT. She had been given Toradol, Zofran and IV fluid. Isolated elevated alk-phos of uncertain etiology. Urinalysis was pending at the time of hand over and is now reviewed and is suspicious for urinary infection. Reviewed findings with patient. CT scan is also suspicious for a nodule just below the thyroid. Uncertain etiology. I suspect that this does have a connection to the elevated alk-phos level. She is feeling much better after the fluids, Toradol and Zofran. Will start ciprofloxacin for the bladder infection. Counseled patient about the thyroid nodule. She will need primary care follow-up to arrange an ultrasound and biopsy. Written instructions provided on this and also a copy of her CT report is given. She is instructed to take both of these to her primary care follow-up appointment to ensure a smooth handoff if they are out of our health system. Symptoms should be markedly better within 48 hours, if not I would recommend re-evaluation. Additional supply of Cipro and Zofran sent to pharmacy per her request. Alarm symptoms reviewed that would warrant ED presentation and sooner follow-up. She verbalizes understanding and agreement of this. No signs of fevers, hypotension or other features of sepsis besides mildly elevated lactate. Pulse has improved after fluids. Blood cultures are pending at this time. <Marcella Ortega MD - Last Filed: 01/13/24 01:02> Vital Signs Vital signs: Initial Vital Signs Temperature 98 F 01/12/24 19:59 Temperature Source Temporal Artery Scan 01/12/24 19:59 Pulse Rate 124 H 01/12/24 19:59 Respiratory Rate 18 01/12/24 19:59 Blood Pressure 160/80 H 01/12/24 19:59 Blood Pressure Mean 106 H 01/12/24 19:59 Blood Pressure Position Sitting 01/12/24 19:59 Pulse Oximetry 98 01/12/24 19:59 Oxygen Delivery Method Room Air 01/12/24 19:59 Vital Signs Temperature 98 F 01/12/24 19:59 Pulse Rate 124 H 01/12/24 19:59 Respiratory Rate 18 01/12/24 19:59 Blood Pressure 160/80 H 01/12/24 19:59 Pulse Oximetry 98 01/12/24 19:59 Oxygen Delivery Method Room Air 01/12/24 19:59 Temperature 98 F 01/12/24 19:59 Pulse Rate 124 H 01/12/24 19:59 Respiratory Rate 18 01/12/24 19:59 Blood Pressure 160/80 H 01/12/24 19:59 Pulse Oximetry 98 01/12/24 19:59 Oxygen Delivery Method Room Air 01/12/24 19:59 <Lul Denson MD - Last Filed: 01/12/24 23:51> Initial Vital Signs Temperature 98 F 01/12/24 19:59 Temperature Source Temporal Artery Scan 01/12/24 19:59 Pulse Rate 124 H 01/12/24 19:59 Respiratory Rate 18 01/12/24 19:59 Blood Pressure 160/80 H 01/12/24 19:59 Blood Pressure Mean 106 H 01/12/24 19:59 Blood Pressure Position Sitting 01/12/24 19:59 Pulse Oximetry 98 01/12/24 19:59 Oxygen Delivery Method Room Air 01/12/24 19:59 Vital Signs Temperature 98 F 01/12/24 19:59 Pulse Rate 124 H 01/12/24 19:59 Respiratory Rate 18 01/12/24 19:59 Blood Pressure 160/80 H 01/12/24 19:59 Pulse Oximetry 98 01/12/24 19:59 Oxygen Delivery Method Room Air 01/12/24 19:59 Temperature 98 F 01/12/24 19:59 Pulse Rate 124 H 01/12/24 19:59 Respiratory Rate 18 01/12/24 19:59 Blood Pressure 160/80 H 01/12/24 19:59 Pulse Oximetry 98 01/12/24 19:59 Oxygen Delivery Method Room Air 01/12/24 19:59 <Marcella Ortega MD - Last Filed: 01/13/24 01:02> Medications Administered Medications: Discontinued Medications Generic Name Dose Route Start Last Admin Trade Name Freq PRN Reason Stop Dose Admin Sodium Chloride 1,000 mls @ 1,000 mls/hr 01/12/24 20:45 01/12/24 22:14 0.9 % Sodium Chloride 1000 Ml IV 01/12/24 21:44 1,000 mls/hr .Q1H ENRIQUE Administration Sodium Chloride 1,000 mls @ 1,000 mls/hr 01/12/24 23:15 01/12/24 23:11 0.9 % Sodium Chloride 1000 Ml IV 01/13/24 00:14 1,000 mls/hr .Q1H ENRIQUE Administration Ketorolac Tromethamine 15 mg 01/12/24 20:45 01/12/24 22:15 Ketorolac 15 Mg/Ml Inj IVP 01/12/24 20:46 15 mg ONCE ONE Administration Ondansetron HCl 4 mg 01/12/24 21:52 01/12/24 22:20 Ondansetron 2 Mg/Ml Inj IVP 01/12/24 21:53 4 mg ONCE ONE Administration <Lul Denson MD - Last Filed: 01/12/24 23:51> Discontinued Medications Generic Name Dose Route Start Last Admin Trade Name Freq PRN Reason Stop Dose Admin Sodium Chloride 1,000 mls @ 1,000 mls/hr 01/12/24 20:45 01/12/24 22:14 0.9 % Sodium Chloride 1000 Ml IV 01/12/24 21:44 1,000 mls/hr .Q1H ENRIQUE Administration Sodium Chloride 1,000 mls @ 1,000 mls/hr 01/12/24 23:15 01/12/24 23:11 0.9 % Sodium Chloride 1000 Ml IV 01/13/24 00:14 1,000 mls/hr .Q1H ENRIQUE Administration Ketorolac Tromethamine 15 mg 01/12/24 20:45 01/12/24 22:15 Ketorolac 15 Mg/Ml Inj IVP 01/12/24 20:46 15 mg ONCE ONE Administration Ondansetron HCl 4 mg 01/12/24 21:52 01/12/24 22:20 Ondansetron 2 Mg/Ml Inj IVP 01/12/24 21:53 4 mg ONCE ONE Administration <Marcella Ortega MD - Last Filed: 01/13/24 01:02> MDM - Nausea/Vomiting/Diarrhea Medical Records Attestation: I reviewed the patient's medical records. <Marcella Ortega MD - Last Filed: 01/13/24 01:02> Lab Data Attestation: I reviewed the patient's lab results. <Marcella Ortega MD - Last Filed: 01/13/24 01:02> Lab results narrative: elevated alk phosphatase uncertain etiology. Urinalysis suspicious for urinary tract infection. <Marcella Ortega MD - Last Filed: 01/13/24 01:02> Labs: Lab Results 01/12/24 01/12/24 Range/Units 22:00 23:15 WBC 5.65 (4.50-11.00) K/uL RBC 3.79 L (4.00-5.20) m/uL Hgb 10.9 L (12.0-16.0) gm/dL Hct 32.6 L (33.0-51.0) % MCV 86 (80-100) fL MCH 29 (26-34) pg MCHC 33 (32-36) gm/dL RDW Coeff of [place] 13.4 (11.5-15.5) % Plt Count 209 (140-440) K/uL Neut % (Auto) 91.3 H (42.0-72.0) % Lymph % (Auto) 6.0 L (20-44) % [place] % (Auto) 1.2 (0.0-11.0) % Eos % (Auto) 0.4 (0.0-7.0) % Baso % (Auto) 0.0 (0.0-3.0) % Neut # (Auto) 5.20 (1.7-7.0) K/uL Lymph # (Auto) 0.30 L (0.90-2.90) K/uL [place] # (Auto) 0.10 (0.00-0.90) K/UL Eos # (Auto) 0.02 (0.00-0.50) K/uL Baso # (Auto) 0.00 (0.00-0.30) K/uL Abs Immat Gran (auto) 0.06 (0.00-0.30) K/uL Imm/Tot Granulo (auto) 1.1 % Sodium 134 L (135-149) mmol/L Potassium 3.7 (3.6-5.1) mmol/L Chloride 105 (96-114) mmol/L Carbon Dioxide 20 (20-32) mmol/L Anion Gap 9 (7-15) mEq/L BUN 29 (7-30) mg/dL Creatinine 1.0 (0.5-1.5) mg/dL Estimated GFR 67 ml/min Glucose 253 H (60-115) mg/dL Lactate 2.3 H (0.5-1.9) mmol/L Calcium 8.8 (8.4-10.6) mg/dL Total Bilirubin 0.9 (0.1-1.5) mg/dL Direct Bilirubin 0.8 H (0.0-0.5) mg/dL AST 52 H (12-35) U/L ALT 34 (4-35) U/L Alkaline Phosphatase 369 H (40-150) U/L Total Protein 7.5 (6.0-8.3) g/dL Albumin 3.9 (3.3-5.0) g/dL Lipase 48 (23-300) U/L Urine Color Yellow (Yellow) Urine Appearance Cloudy A (Clear) Urine pH 5.5 (5.0-8.5) Ur Specific [place] 1.015 (1.000-1.030) Urine Protein 2+ A (Negative) Urine Glucose (UA) Negative (Negative) Urine Ketones Trace A (Negative) Urine Blood 1+ A (Negative) Urine Nitrite Positive A (Negative) Urine Bilirubin 1+ A (Negative) Urine Urobilinogen 1.0 (0.2-1.0) Ur Leukocyte Esterase Trace A (Negative) Urine RBC 0-2 (0-2) Urine WBC 2-5 (0-5) Ur Squamous Epith Cells Few (None-Few) Amorphous Sediment Moderate A (None) Urine Bacteria Moderate A (None) Urine Mucus Few A (None) SARS-CoV-2 (PCR) Negative SARS-CoV-2 (Negative) Influenza Type A (PCR) Negative PCR FLU A (Negative) Influenza Type B (PCR) Negative PCR FLU B (Negative) RSV (PCR) Negative PCR RSV (Negative) <Lul Denson MD - Last Filed: 01/12/24 23:51> Lab Results 01/12/24 01/12/24 Range/Units 22:00 23:15 WBC 5.65 (4.50-11.00) K/uL RBC 3.79 L (4.00-5.20) m/uL Hgb 10.9 L (12.0-16.0) gm/dL Hct 32.6 L (33.0-51.0) % MCV 86 (80-100) fL MCH 29 (26-34) pg MCHC 33 (32-36) gm/dL RDW Coeff of [place] 13.4 (11.5-15.5) % Plt Count 209 (140-440) K/uL Neut % (Auto) 91.3 H (42.0-72.0) % Lymph % (Auto) 6.0 L (20-44) % [place] % (Auto) 1.2 (0.0-11.0) % Eos % (Auto) 0.4 (0.0-7.0) % Baso % (Auto) 0.0 (0.0-3.0) % Neut # (Auto) 5.20 (1.7-7.0) K/uL Lymph # (Auto) 0.30 L (0.90-2.90) K/uL [place] # (Auto) 0.10 (0.00-0.90) K/UL Eos # (Auto) 0.02 (0.00-0.50) K/uL Baso # (Auto) 0.00 (0.00-0.30) K/uL Abs Immat Gran (auto) 0.06 (0.00-0.30) K/uL Imm/Tot Granulo (auto) 1.1 % Sodium 134 L (135-149) mmol/L Potassium 3.7 (3.6-5.1) mmol/L Chloride 105 (96-114) mmol/L Carbon Dioxide 20 (20-32) mmol/L Anion Gap 9 (7-15) mEq/L BUN 29 (7-30) mg/dL Creatinine 1.0 (0.5-1.5) mg/dL Estimated GFR 67 ml/min Glucose 253 H (60-115) mg/dL Lactate 2.3 H (0.5-1.9) mmol/L Calcium 8.8 (8.4-10.6) mg/dL Total Bilirubin 0.9 (0.1-1.5) mg/dL Direct Bilirubin 0.8 H (0.0-0.5) mg/dL AST 52 H (12-35) U/L ALT 34 (4-35) U/L Alkaline Phosphatase 369 H (40-150) U/L Total Protein 7.5 (6.0-8.3) g/dL Albumin 3.9 (3.3-5.0) g/dL Lipase 48 (23-300) U/L Urine Color Yellow (Yellow) Urine Appearance Cloudy A (Clear) Urine pH 5.5 (5.0-8.5) Ur Specific [place] 1.015 (1.000-1.030) Urine Protein 2+ A (Negative) Urine Glucose (UA) Negative (Negative) Urine Ketones Trace A (Negative) Urine Blood 1+ A (Negative) Urine Nitrite Positive A (Negative) Urine Bilirubin 1+ A (Negative) Urine Urobilinogen 1.0 (0.2-1.0) Ur Leukocyte Esterase Trace A (Negative) Urine RBC 0-2 (0-2) Urine WBC 2-5 (0-5) Ur Squamous Epith Cells Few (None-Few) Amorphous Sediment Moderate A (None) Urine Bacteria Moderate A (None) Urine Mucus Few A (None) SARS-CoV-2 (PCR) Negative SARS-CoV-2 (Negative) Influenza Type A (PCR) Negative PCR FLU A (Negative) Influenza Type B (PCR) Negative PCR FLU B (Negative) RSV (PCR) Negative PCR RSV (Negative) <Marcella Ortega MD - Last Filed: 01/13/24 01:02> Discharge Plan Discharge Clinical Impression: Complicated urinary tract infection, Nausea and vomiting, Thyroid nodule, Elevated alkaline phosphatase level <Lul Denson MD - Last Filed: 01/12/24 23:51> Patient Disposition: Home w/ Parent or Adult <Lul Denson MD - Last Filed: 01/12/24 23:51> Condition: Improved <Lul Denson MD - Last Filed: 01/12/24 23:51> Instructions: Urinary Tract Infection in Women (DC) <Lul Denson MD - Last Filed: 01/12/24 23:51> Additional Instructions: As we discussed, I suspect that your chills and nausea are from your bladder infection. We have started you on an antibiotic for this. I am glad that the anti nausea medicine and Toradol were effective at controlling your nausea and pain. Continue taking the antibiotic, ciprofloxacin, twice daily for 5 days. I have sent this prescription to your pharmacy. I have also sent a prescription for some more the anti nausea medicine, ondansetron. You may take this up to every 8 hours as needed for nausea and vomiting. Keep drinking lots of fluids to help flush out the bladder infection. It is okay to continue using Tylenol 1000 mg every 6 hours and or ibuprofen 600 mg every 6 hours as needed for discomfort as well. Her symptoms really should start to improve within about 48 hours. Often, when we do CT scans, we find unexpected things that are not related to your symptoms. We found a nodule in your upper chest, near the thyroid that needs further follow-up. It is about the size of a quarter. It is calcified and smooth and does not have obvious features of trouble. It will need a biopsy. You also had an elevation of 1 of your blood markers, alk phosphatase. Those 2 things are probably related, But not an immediate or dangerous threat to your health at this time. Please make a follow-up appointment within the next couple of weeks to see your primary care doctor to arrange the biopsy and further testing. Please bring a copy of this paperwork with you so that they can see what I am talking about. I will also send you with a copy of the report. Elaine comentamos, sospecho que catina escalofr?os y n?useas se deben a coreas infecci?n de vejiga. Le hemos iniciado un tratamiento con antibi?ticos para esto. Me alegra que el medicamento contra las n?useas y Toradol hayan sido eficaces para controlar las n?useas y el dolor. Contin?e tomando el antibi?tiburcio ciprofloxacina dos veces al d?a valarie 5 d?as. He enviado esta receta a coreas farmacia. Tambi?n le envi? nona receta para m?s medicamento contra las n?useas, ondansetr?n. Puede arslan esto hasta cada 8 horas seg?n sea necesario para las n?useas y los v?mitos. Siga bebiendo muchos l?quidos para ayudar a eliminar la infecci?n de la vejiga. Tambi?n est? marisabel continuar usando Tylenol 1000 mg cada 6 horas o ibuprofeno 600 mg cada 6 horas seg?n sea necesario para las molestias. Catina s?ntomas realmente deber?an comenzar a mejorar en aproximadamente 48 horas. A menudo, cuando hacemos tomograf?as computarizadas, encontramos cosas inesperadas que no est?n relacionadas con catina s?ntomas. Encontramos un n?dulo en la parte superior de coreas pecho, cerca de la tiroides que necesita mayor seguimiento. Es aproximadamente del yee?o de nona moneda de veinticinco centavos. Est? calcificado y liso y no presenta caracter?sticas obvias de problemas. Necesitar? nona biopsia. Tambi?n tuvo nona elevaci?n de carmen de catina marcadores sangu?neos, la alk fosfatasa. Esas dos cosas probablemente est?n relacionadas, sergio no representan nona amenaza inmediata o peligrosa para coreas yusuf en jj momento. Programe nona vanita de seguimiento dentro de las pr?ximas semanas para trevon a coreas m?dico de atenci?n primaria y programar la biopsia y pruebas adicionales. Por favor traiga nona copia de esta documentaci?n para que puedan trevon de qu? estoy hablando. Tambi?n le enviar? nona copia del informe. <Lul Denson MD - Last Filed: 01/12/24 23:51> Activity Level: Activity as Tolerated <Lul Denson MD - Last Filed: 01/12/24 23:51> Activity as Tolerated <Marcella Ortega MD - Last Filed: 01/13/24 01:02> Discharge Diet: Regular <Lul Denson MD - Last Filed: 01/12/24 23:51> Regular <Marcella Ortega MD - Last Filed: 01/13/24 01:02> Prescriptions: New ciprofloxacin HCl 500 mg tablet 500 mg PO Q12H Qty: 10 0RF ondansetron 4 mg tablet,disintegrating 4 mg PO Q8H PRN (Reason: nausea and vomiting) Qty: 7 0RF No Action aspirin 81 mg tablet,delayed release (DR/EC) 81 mg PO QPM (DME) pen needle, diabetic [CareTouch Pen Needle] 31 gauge x 5/16 needle See Rx Instructions .Route Qty: 100 5RF Rx Instructions: Injects BID ergocalciferol (vitamin D2) 1,250 mcg (50,000 unit) capsule 1,250 mcg PO QWEEK Qty: 13 3RF lisinopril 40 mg tablet 40 mg PO QDAY Qty: 90 3RF ondansetron 4 mg tablet,disintegrating 4 mg PO Q6H Qty: 5 0RF gabapentin 300 mg capsule 600 mg PO QPM Qty: 180 1RF glyburide 5 mg tablet 5 mg PO QDAY Qty: 90 1RF metformin 1,000 mg tablet 1,000 mg PO BIDWMEAL Qty: 180 1RF Novolin 70-30 FlexPen U-100 100 unit/mL (70-30) insulin pen 40 unit subcut BID Qty: 60 1RF naproxen 500 mg tablet 500 mg PO BID Qty: 180 3RF gabapentin 100 mg capsule 100 mg PO BID Qty: 60 2RF amlodipine 10 mg tablet 10 mg PO QDAY Qty: 90 1RF <Lul Denson MD - Last Filed: 01/12/24 23:51> Follow Up/Referrals: Demetrius Farris MD [Primary Care Provider] - <Lul Denson MD - Last Filed: 01/12/24 23:51> Stand Alone Forms: My[facility] Info Instructions <Lul Denson MD - Last Filed: 01/12/24 23:51>
--- OUTSIDE RECORDS SUMMARY | 2024-01-12 22:11 | XMS_ITS | Clinical Summary ---
Author Organization [facility] Address [place], [place] [address] Care Team Providers Care Blindstitch Lapel Padder Name Role Phone Unavailable Primary Care Provider [...] Outcome GA Total Labor Labor/2nd/3rd Weight Sex Type Anes PTL Jennyfer A1 A5 Name Clin Term Term SAB Term Comments Vaginal, then [...] Health Maintenance Due Date Last Done Comments HIV for age 15-65 1984 Hepatitis C [...] 02/14/20 21, 01/31/2017, 01/19/2016, Additional history exists COVID-19 vaccine series (2022- season) 2023 Influenza for age 50-64 03/14/2024 05/18/20 13, 04/20/2010, 07/11/2009, Additional history exists Pap test for age 21-65 08/01/2026 4, 08/01/2023, 01/17/2021, Additional history exists Tetanus booster 01/31/2027 01/31/2017, 05/22/2007 Lipids for age 45-75 02/06/2027 02/06/2022, 06/10/2016, 02/27/2015, Additional history exists Tdap Completed 01/31/2017 Pneumococcal series for age 6-64 Aged Out No longer eligible based on patient's age to complete this topic Procedures Procedure Name Priority Date/Time Associated Diagnosis Comments HPV THIN PREP Routine 08/01/2023 12:00 PM PUBLICATION EDITOR LIPID PANEL Routine 02/06/2022 4:34 PM CDT SCAN-MAMMOGRAPHY REPORT 02/13/2021 12:00 AM CDT from Last 3 Months or Most Recently Relevant to Health Maintenance Results * HPV HIGH RISK (08/01/2023 12:00 PM PUBLICATION EDITOR) TYPE 16 Negative Negative 08/06/2023 5:12 PM PUBLICATION EDITOR [facility] TYPE 18 Negative Negative 08/06/2023 5:12 PM PUBLICATION EDITOR [facility] OTHER HIGH RISK TYPES Negative Negative 08/06/2023 5:12 PM PUBLICATION EDITOR [facility] Other (Cervical) 08/01/2023 12:00 PM PUBLICATION EDITOR 08/04/2023 5:38 PM PUBLICATION EDITOR Narrative [facility] - 08/06/2023 5:12 PM PUBLICATION EDITOR HPV types 16, 18, 31, 33, 35, 39, 45, 51, 52, 56, 58, 59, 66 and 68 DNA were undetectable or below the pre-set threshold. Methodology: [employer] 4800 HPV Test Susanne Price PA-C MICROBIOLOGY [facility] [address] [place] [id number], * LIPID PANEL (02/06/2022 4:34 PM CDT) CHOLESTEROL,TOTAL 142 100 - 199 mg/dL 02/07/2022 10:45 AM [facility] TRIGLYCERIDES 109 <150 mg/dL 02/07/2022 10:45 AM [facility] HDL CHOLESTEROL 44 >40 mg/dL 10:45 AM [facility] NON-HDL CHOLESTEROL 98 <145 mg/dl 02/07/2022 10:45 AM [facility] CHOL/HDL RATIO 3.23 <4.50 02/07/2022 10:45 AM [facility] LDL CHOLESTEROL 76 <=130 mg/dL 02/07/2022 10:45 AM [facility] VLDL CHOLESTEROL 22 <=30 mg/dL 02/07/2022 10:45 AM [facility] PROVIDER ORDERED STATUS RANDOM 02/07/2022 10:45 AM [facility] Blood BLOOD SPECIMEN / Unknown 02/06/2022 4:34 PM CDT 02/07/2022 10:02 AM CDT Erwin Brown MD CHEMISTRY [facility] [address] [place] [address] * SCAN-MAMMOGRAPHY REPORT (02/13/2021 12:00 AM CDT) Anatomical Region Laterality Modality Other Scanner OTHER from Last 3 Months or Most Recently Relevant to Health Maintenance [facility] Other 07/14/2000 ATTN SANDRA GARCIA [address] [place] [id number]
--- OUTSIDE RECORDS SUMMARY | 2024-01-12 22:11 | XMS_ITS | Data Portability ---
Author Organization [facility] Address [address] [place] [address] [place] [address] Assessment No assessment recorded. Plan of Treatment Reminders Order Date Submit Date Provider Last Modified By Organization Details Last Modified Time Details Appointments None recorded. Lab urinalysis , complete 2021 022 [facility] Lab, [address] [place] [address], [address], 2 17:06:35 CBC [address]- Lab, [address] [place], [address], 3 12:00:35 CMP, serum or plasma [address] Lab, [address] [place] [address], [address], 3 11:59:56 lipid panel, serum [address] Lab, [address] [place], [address], 3 11:59:57 microalbum in/creatin ine, mass ratio, urine [address] Lab, [address] [place] [address], [address], 3 11:59:57 hemoglobin A1C/hemogl obin total, QN, blood [address]- Lab, [address] [place], [address], 3 11:59:57 Referral None recorded. Procedures None recorded. Surgeries None recorded. Imaging US, duplex, venous, lower extremity, unilateral - left only 2021 [facility], [address] [place], [address], 2 14:05:58 RF, colon, w/ air, w/ contrast DE 2021 [facility], [address] [place], [address], 3 13:04:43 Medication Orders lisinopril 40 mg tablet 2021 [facility], [address] [place] [address], [address], 2 16:17:36 ergocalcif julieta (vitamin D2) 1,250 mcg (50,000 unit) capsule 2021 [facility], [address] [place] [address], [address], 2 18:52:42 amitriptyl ine 25 mg tablet 2021 [facility], [address] [place], [address], 18:50:03 glyburide 5 mg tablet 2021 [facility], [address] [place] [address], [address], 2 17:40:42 hydrochlor othiazide 25 mg tablet 2022 023 [facility], [address] [place] [address], [address], 3 10:58:54 triamcinol one acetonide 0.5 % topical cream [address], [address], 3 10:59:53 glyburide 5 mg tablet [address], [address], 3 14:12:18 triamcinol one acetonide 0.5 % topical cream [address], [address], 3 14:12:27 metformin 1,000 mg tablet [address], [address], 3 17:12:06 gabapentin 100 mg capsule [address], [address], 3 14:12:10 lisinopril 40 mg tablet [address], [address], 3 14:12:36 ergocalcif julieta (vitamin D2) 1,250 mcg (50,000 unit) capsule [address], [address], 3 18:55:20 hydrochlor othiazide 25 mg tablet [address] [place], [address], 18:55:21 Patient TargetsNo targets recorded. Patient Instructions Encounter Date Encounter Id Patient Instructions Last Modified By Organization Details Last Modified Time 04/30/2022 [id number] eat regularly, try to get glucose to 120 ezra Not available 05/01/2022 16:14:55 05/14/2022 [id number] watch for drowsiness, dry mouth and constipation with meds, calland leave message about any side effects ezra Not available 05/15/2022 11:21:19 UTI treated, needs f/u question ezra Not available 05/16/2022 12:45:40 05/21/2022 [id number] watch for drowsiness with meds, glucose and BP need improvement after BE ezra Not available 05/23/2022 09:59:38 check on BETHANY ezra Not available 18:12:15 07/23/2022 [id number] use cream twice a day on leg ezra Not available 07/29/2022 13:51:21 need to follow u p on stress ezra Not available 07/29/2022 13:51:41 09/10/2022 [id number] watch for low glucose on days when you are active at work, we are watching your blood pressure and more medicine might be needed ezra Not available 09/11/2022 11:28:50 Reason for Referral Diabetic Ophthalmology Refer ral for Type 2 diabetes mellitus without complication Referring Physician: [facility], Encounter Date: 05/03/2020 Diabetic Nutrition Education Referral for Type 2 diabetes mellitus without complication Referring Physician: [facility], Encounter Date: 05/03/2020 Referring Physician: [facility], Encounter Date: 05/11/2020 Wireless Store Manager/dietitian Refer ral for Diabetes mellitus Referring Physician: [facility], Encounter Date: 05/11/2020 Gear Inspector Referral for Me nopausal syndrome Referring Physician: [facility], Encounter Date: 05/18/2020 Community Care Referral for Diabetes mellitus Needs CHW monitoring of DM (per Dr. Prince progress note) Referring Physician: Clinton Prince, [facility], Encounter Date: 06/28/2020 Results Created Date Observation Date Name Description Value Unit Range Abnormal Flag LastModifiedBy Organization Detail LastModifiedTime 05/14/20 22 05/14/2022 H pylor i Ag, stool TSH 1.160 Not Available [facility] Lab [address] [place], [address], 05/20/2022 12:36:23 05/14/20 22 05/14/2022 TSH, serum or plasm a TSH 1.160 Not Available [facility] [address] [place], [address], 05/20/2022 12:36:23 05/14/20 22 05/14/2022 fecal occul t blood , stool TSH 1.160 Not Available [facility] Lab [address] [place], [address], 05/20/2022 12:36:23 05/14/20 22 05/14/2022 urina lysis , compl ete TSH 1.160 Not Available [facility] [address] [place], [address], 05/17/2022 15:38:26 04/01/20 22 04/01/2022 US, abdom en No observ ation record ed. [facility] [address] [place], [address], 04/02/2022 17:18:01 05/17/20 22 05/17/2022 US, duple x, venou s, lower extre mity, unila teral No observ ation record ed. [facility] [address] [place], [address], 05/21/2022 08:20:31 08/16/19 23 08/16/2022 RF, colon , w/ air, w/ contr ast DE No observ ation record ed. [facility] [address] [place], [address], 08/19/2022 14:10:21 Result Notes None recorded. Problems Name Status Onset Date Resolution Date Notes Provider Name and Address Organization Details Recorded Time Microalbuminuria Active 021 Erwin Brown MD [address] [place], [address] , [facility] Pager 05/01/2022 16:04:27 Depressive disorder Active 021 Rebecca Scott NP [address] [place], [address] , [facility] [employer] 01/17/2021 12:11:39 Vitamin D deficiency Active 021 Rebecca Scott NP [address] [place], [address] , [facility] [employer] 01/17/2021 12:11:50 Systolic murmur Active 021 Rebecca Scott NP [address] [place], [address] , [facility] [employer] 01/17/2021 12:11:58 Lichen simplex chronicus Active 021 Rebecca Scott NP [address] [place], [address] , [facility] [employer] 01/17/2021 12:12:23 Ligation of bilateral fallopian tubes Active 021 Rebecca Scott NP [address] [place], [address] , [facility] [employer] 01/17/2021 12:12:38 Essential hypertension Active 022 Erwin Brown MD [address] [place] [address], [address] , [facility] Pager 03/14/2022 11:17:21 Type II diabetes mellitus uncontrolled Active 023 Erwin Brown MD [address] [place] [address], [address] , [facility] [employer] 09/10/2022 19:32:06 Problem Notes None recorded. Procedures Surgical History Date Name Laterality Status Provider Name and Address Organization Details Recorded Time 01/18/20 18 Date of Last Pap Smear completed Rebecca Scott, ORA [address] [place], [address], [facility] 01/17/2021 16:30:52 01/18/20 18 Date of Last Mammogram completed Rebecca Scott NP [address] [place], [address], [facility] 01/17/2021 16:31:08 07/14/19 06 Removal of gallbladder completed Rebecca Scott NP [address] [place], [address], [facility] 01/17/2021 16:23:25 ligation of bilateral fallopian tubes completed Rebecca Scott NP [address] [place], [address], [facility] 01/17/2021 12:12:50 delivery completed Rebecca Scott, ORA [address] [place], [address], [facility] 01/17/2021 12:12:57 Imaging Results Imaging Date Name Status LastModified by Organiz ation Details LastModified Time 04/01/2022 US, abdomen completed [facility] [address] [place], [address], 04/02/2022 17:18:01 05/17/2022 US, duplex, venous, lower extremity, unilateral completed [facility] [address] [place], [address], 05/21/2022 08:20:31 08/16/2022 RF, colon, w/ air, w/ contrast DE completed [facility] [address] [place], [address], 08/19/2022 14:10:21 Procedure Notes None recorded. Medical Equipment None Reported. Allergies No known drug allergies Medications Name Sig Start Date Stop Date Status Note LastModified by Organization Details LastModified Time Novolin 70/30 U-100 Insulin 100 unit/mL subcutaneou s suspension Inject 32 units twice a day by subcutane ous route in the evening for 365 days. 12/13 completed 1 vital - HBLot : [id number] 24Exp : 03/02 221 vial 11/03 LZFs5 02 ws Not Available Not Available Not Available triamcinolo ne acetonide 0.5 % topical cream APPLY A THIN LAYER TO THE AFFECTED AREA(S) BY TOPICAL ROUTE 2 TIMES PER DAY active Not Available Not Available No t Available glyburide 5 mg tablet TAKE ONE TABLET BY MOUTH TWICE A DAY active Not Available Not Available No t Available Novolin N NPH U-100 Insulin isophane 100 unit/mL subcutaneou s susp 40u Two times per day. 06/30 completed Not Available Not Available Not Available lisinopril 20 mg tablet TAKE ONE TABLET BY MOUTH ONCE DAILY 05/01 completed Not Available Not Available Not Available Diflucan 150 mg tablet take 1 tablet by oral route once 08/11 completed Not Available Not Available Not Available aspirin 81 mg tablet,gonzalez yed release TAKE 1 TABLET BY MOUTH EVERY DAY AT BEDTIME 07/23 completed Not Available Not Available Not Available triamcinolo ne acetonide 0.1 % topical cream apply by topical route 2 times every day a thin layer to the affected area(s) 05/24 completed Not Available Not Available Not Available Miconazole- 7 2 % vaginal cream insert 1 applicato rful by vaginal route every day at bedtime for 7 days 08/11 completed Not Available Not Available Not Available amitriptyli ne 25 mg tablet TAKE 1 TABLET (25MG) BY MOUTH EVERY EVENING active Not Available Not Available No t Available desonide 0.05 % topical ointment apply by topical route 2 times every day sparingly and rub gently into the affected area(s) 02/26 completed Not Available Not Available Not Available Glucotrol XL 10 mg tablet,exte nded release take 1 tablet by oral route every day with breakfast 01/29 completed Not Available Not Available Not Available hydrocortis one 1 % topical cream apply by topical route 2 times every day to the affected area(s) 02/26 completed Not Available Not Available Not Available ferrous sulfate 325 mg (65 mg iron) tablet take 1 tablet by mouth once daily. 10/18 completed Not Available Not Available Not Available metformin 1,000 mg tablet TAKE ONE TABLET BY MOUTH TWICE A DAY WITH MORNING AND EVENING MEALS 2022 active Not Available Not Available Not Avai lable aspirin 81 mg tablet take 1 tablet by oral route every day 08/12 completed Not Available Not Available Not Available hydrochloro thiazide 25 mg tablet Take 1 tablet every day by oral route. 2022 active Not Available Not Available Not Avai lable gabapentin 100 mg capsule TAKE ONE CAPSULE BY MOUTH IN THE MORNING AND AT NOON. TAKE 2 CAPSULES AT BEDTIME. OR DIRECTED BY YOUR PROVIDER* active Not Available Not Available No t Available ergocalcife rol (vitamin D2) 1,250 mcg (50,000 unit) capsule TAKE ONE CAPSULE BY MOUTH EVERY WEEK active Not Available Not Available No t Available Ativan 0.5 mg tablet take 1 tablet by oral route at Bedtime as needed for Sleep 10/01 completed Not Available Not Available Not Available lisinopril 40 mg tablet TAKE ONE TABLET BY MOUTH EVERY DAY active Not Available Not Available No t Available spironolact one 50 mg tablet take 1 tablet by oral route every day 05/24 completed Not Available Not Available Not Available Natural Fiber Laxative (sugar) oral powder MIX 1 TABLESPOO N IN LIQUID NEEDED DRINK EVERY DAY 07/23 completed Not Available Not Available Not Available nitrofurant oin monohydrate /macrocryst als 100 mg capsule TAKE ONE CAPSULE BY MOUTH EVERY 12 HOURS 07/16 completed Not Available Not Available Not Available Novolin 70/30 U-100 Insulin 15U in am and 15 U in evening active LRB: 08/13 MZF3S 24 x 2 vials 04/30 LRB: MZF1r 50, MZF2N 82 x 2 vials LRB: MZF0Y 10 x 2 vials 02/13 LRB: 03/02 23 LZFT6 48 x MZFOs 43 Not Available Not Available Not Available Levemir FlexPen 100 unit/mL (3 mL) solution subcutaneou s insulin pen inject by subcutane ous route as per insulin sliding scale protocol 11/24 completed Not Available Not Available Not Available Zyrtec 10 mg capsule take 1 Tablet by by mouth route daily 02/26 completed Not Available Not Available Not Available Florajen Acidophilus 20 billion cell capsule TAKE ONE CAPSULE BY MOUTH EVERY DAY 07/23 completed Not Available Not Available Not Available Metamucil 3.4 gram/5.4 gram oral powder Take 1 tbsp every day by oral route. 2021 active Not Available Not Available Not Avai lable Vitals Date Recorded Body height Body mass index (BMI) Body weight Heart rate Systolic blood pressure Diastolic blood pressure Provider Name and Address Organization Details Last Updated DateTime 149.86 cm 24.8 kg/m2 23009.8 6 g 91 /min 184 mm[Hg] 91 mm[Hg] Dione Josephs [facility] Pager 2 18:40:56 Date Recorded Body height Body mass index (BMI) Body weight Systolic blood pressure Diastolic blood pressure Provider Name and Address Organization Details Last Updated DateTime 05/14/2022 149.86 cm 25.6 kg/m2 57512.51 g 180 mm[Hg] 95 mm[Hg] Erwin Brown MD [address] [place], [address] [place] [address] Pager 2 11:14:00 Date Recorded Body height Body mass index (BMI) Body weight Systolic blood pressure Diastolic blood pressure Provider Name and Address Organization Details Last Updated DateTime 07/23/2022 149.86 cm 25.4 kg/m2 10293.64 g 154 mm[Hg] 82 mm[Hg] Erwin Brown MD [address] [place], [address] Pager 3 18:51:14 Date Recorded Body height Body mass index (BMI) Body weight Systolic blood pressure Diastolic blood pressure Provider Name and Address Organization Details Last Updated DateTime 09/10/2022 149.86 cm 26.9 kg/m2 01779.79 g 153 mm[Hg] 90 mm[Hg] Erwin Brown MD [address] [place], [address] [place], [place] - [facility] [employer] [facility] 3 19:06:59 Social History Question Answer Notes LastModified by Organizat ion Details LastModified Time Tobacco Smoking Status Never Smoker Charissa Vazquez [place], [place] - [facility] [employer] [facility] 05/24/2020 19:49:06 What Is Your Level Of Alcohol Consumption? None [email or web address] Information not available 01/17/2021 Are You Currently Employed? Yes Information not available 03/14/2022 Who Is Your Employer? [employer] Information not available 03/14/2022 Do You Feel Safe At Home? Yes Information not available 03/14/2022 How Many Children Do You Have? 1 [email or web address] Information not available 04/30/2022 What Is Your Relationship Status? Single [email or web address] Information not available 04/30/2022 Sex: Unknown Functional Status None recorded. Mental Status None recorded. Family History Relationship Description Onset Age of this Age Resolved Age Notes Sister Cerebrovascular accident 56 56 Notes:mother of unk cau se, father of cirrhosis, sister complications of epilepsy, the other of a cva or something like it Medical History No medical history recorded. Gynecological History Statement/Question Response Menses Monthly N Abnormal Pap N Date of Last Pap Smear 01/17/2018 Current Control Method Tubal Ligat ion Date of Last Mammogram 01/17/2018 Obstetrics History GPAL:G 3 P 2 0 1 2 Type Value Full Term 2 Spontaneous 1 Living 2 Total 3 Past Encounters Encounter ID Performer Location Encounter Start Date Encounter Closed Date Diagnosis/Indication Diagnosis SNOMED-CT Code [id number] Clinton Prince MD [facility] [address] [place] [address] 05/02/2020 17:49:21 05/02/2020 20:47:05 Menopausal syndrome [id number] Type 2 peyton betes mellitus without complication [id number] Clinton Prince MD [facility] [address] [place] [address] 05/18/2020 18:03:12 05/18/2020 20:42:36 Diabetes mellitus 54436319 Menopausal syndrome 1237 78122 [id number] Luzma Snow [facility] [address] [place] [address] 05/24/2020 19:24:20 05/24/2020 20:25:52 Diabetes mellitus 25494380 Menopausal syndrome 1237 96835 [id number] [facility] Britton [facility] [address] [place] [address] 12/06/2020 17:04:00 12/06/2020 17:41:40 Type II diabetes mellitus uncontrolled 096538364 Microalbuminuria 1817793 06 [id number] Erwin Brown MD [facility] [address] [place] [address] 12/12/2020 18:15:59 12/13/2020 12:37:55 Type 2 diabetes mellitus without complication [id number] Rebecca Scott [facility] [address] [place] [address] 01/17/2021 16:04:43 01/17/2021 18:13:53 Screening for malignant neoplasm of cervix 103361323 Screening for malignant neoplasm of breast 237451525 Screening for malignant neoplasm of colon 803151136 Essential hypertension 33846757 Type 2 peyton betes mellitus without complication 302956243 [id number] Erwin Brown MD [facility] [address] [place] [address] 02/13/2021 18:15:04 02/13/2021 18:53:56 Type 2 diabetes mellitus 92211309 [id number] Erwin Brown MD [facility] [address] [place] [address] 04/03/2021 18:07:26 04/03/2021 18:38:52 Type 2 diabetes mellitus without complication 449765510 [id number] Erwin Brown MD [facility] [address] [place] [address] 06/26/2021 18:17:09 06/26/2021 18:57:41 Type 2 diabetes mellitus without complication [id number] Erwin Brown MD [facility] [address] [place] [address] 08/07/2021 18:13:56 08/07/2021 18:47:43 Indigestion 261969469 [id number] Erwin Brown MD [facility] [address] [place] [address] 10/16/2021 19:31:08 10/16/2021 19:54:21 Type 2 diabetes mellitus without complication 757515789 [id number] Erwin Brown MD [facility] [address] [place] [address] 11/27/2021 18:30:22 11/27/2021 18:58:24 Type 2 diabetes mellitus without complication [id number] Erwin Brown MD [facility] [address] [place] [address] 03/14/2022 09:58:30 03/14/2022 10:40:45 Type 2 diabetes mellitus without complication 485602048 Essential hypertension 37401924 Indigestion 577073089 Type 2 peyton betes mellitus 05668787 Anemia 013490550 Right uppe r quadrant pain [id number] Erwin Brown MD [facility] [address] [place] [address] 04/30/2022 18:33:14 04/30/2022 19:16:25 Type 2 diabetes mellitus without complication 963305087 Essential hypertension 30988362 [id number] Erwin Brown MD [facility] [address] [place] [address] 05/14/2022 18:03:25 05/14/2022 18:35:46 Pain of left calf 6020693765913 109 [address] [id number] Erwin Brown MD [facility] [address] [place] [address] 05/21/2022 17:33:26 05/21/2022 18:12:55 Acute urinary tract infection 781316217 Colorectal cancer detected by DNA-based stool screening 334910721 Type 2 peyton betes mellitus without complication 943998580 Essential hypertension 80058684 Type 2 peyton betes mellitus 30810268 [id number] Erwin Brown MD [facility] [address] [place] [address] 07/23/2022 18:31:45 07/23/2022 18:57:51 Type 2 diabetes mellitus without complication 575051286 Essential hypertension 47060465 Colorectal cancer detected by DNA-based stool screening 136170165 [id number] Erwin Brown MD [facility] [address] [place] [address] 09/10/2022 18:11:37 09/10/2022 18:58:06 Type II diabetes mellitus uncontrolled 402130873 Essential hypertension 52324723 Type 2 peyton betes mellitus without complication 309418576 Type 2 peyton betes mellitus 76384787 Stool finding 195761595 Health Concerns Section Related Observation LastModified by Organization Detai ls LastModified Time None Recorded Concern Status LastModified by Organization Details LastModified Time None Recorded Advance Directives Directive None Recorded Payers Encounter Date Sequence Insurance Name Policy Number Policy Flores Covered Member ID Flores Member ID Guarantor Name 04/30/2022 SLIDING FEE SCHEDULE - DISCOUNT Kenia Gopal Locke 05/14/2022 SLIDING FEE SCHEDULE - DISCOUNT Kenia Gopal Locke 05/21/2022 SLIDING FEE SCHEDULE - DISCOUNT Kenia Gopal Locke 07/23/2022 SLIDING FEE SCHEDULE - DISCOUNT Kenia [place] Locke 09/10/2022 SLIDING FEE SCHEDULE - DISCOUNT Kenia [place] Locke OBGyn Episode No OBEpisode recorded.
[2024-01-12 22:13] LABS: Lactate* 2.3 mmol/L (0.5-1.9)
[2024-01-12] MEDS: 0.9 % SODIUM CHLORIDE 1000 ml 1,000 ML IV ×2 (22:14→23:11)
[2024-01-12] MEDS: KETOROLAC 15 MG/ML inj IVP (22:15)
[2024-01-12] MEDS: ONDANSETRON 2 MG/ML inj 4 MG IVP (22:20)
--- NOTE | 2024-01-12 22:36 | CRLHL7_ITS ---
For Patients: As a result of the Century Cures Act, medical imaging exams and procedure reports are released immediately into your electronic medical record. You may view this report before your referring provider. If you have questions, please contact your health care provider. INDICATION: Chills, vomiting, abdominal pain TECHNIQUE: CT chest, abdomen and pelvis acquired with 70 cc of Isovue 370 IV contrast. COMPARISON: None. FINDINGS: CHEST: Cardiovascular structures: Heart size is normal. Thoracic aorta and main pulmonary artery are normal in caliber. Mediastinum and christen: Partially calcified 2.8 x 1.9 x 1.9 cm mass within the superior mediastinum inferior to the thyroid gland without definite connection to the thyroid gland itself. No lymphadenopathy. Lungs and pleura: Lungs and pleural spaces are clear. No suspicious nodules, infiltrates, or effusions. Chest wall and axilla: No mass or adenopathy. Bones: No suspicious bone lesions. Unremarkable for age. ABDOMEN AND PELVIS: Liver: Mild periportal edema. Gallbladder and bile ducts: Status post cholecystectomy. No abnormal biliary ductal dilatation. Pancreas: Unremarkable. Spleen: Unremarkable. Adrenal glands: Unremarkable. Kidneys: Unremarkable. GI tract: Unremarkable. Normal appendix. Vascular structures: Unremarkable. Lymph nodes: Unremarkable. Miscellaneous: Unremarkable. No free air or significant free fluid. Pelvic Organs: Bilateral tubal ligation clips. Otherwise, unremarkable. Bones: No suspicious bone lesions. Unremarkable for age. IMPRESSION: 1. No acute findings within the chest, abdomen, or pelvis. No findings to explain the patient`s abdominal pain. 2. Partially calcified 2.8 x 1.9 x 1.9 cm mass within the superior mediastinum inferior to the thyroid gland. Differential considerations include a exophytic thyroid nodule, germ-cell tumor, or treated lymphoma. Recommend thyroid ultrasound as an outpatient to exclude a thyroid nodule, if not previously performed. Please note that all CT scans at this facility use dose modulation, iterative reconstruction, and/or weight-based dosing when appropriate to reduce radiation dose to as low as reasonably achievable. Dictated by Wilbur Jeong MD @ 01/13/2024 12:30:13 AM (Electronically Signed)
[2024-01-12 22:48] LABS: Eosinophils Absolute Auto 0.02 K/uL (0.00-0.50); Eosinophils Percent Auto 0.4 % (0.0-7.0); Hematocrit 32.6 % (33.0-51.0); Hemoglobin* 10.9 gm/dL (12.0-16.0); Immature Granulocytes Abs Auto 0.06 K/uL (0.00-0.30); Immature Granulocytes Pct Auto 1.1 %; Mean Corpuscular HGB Conc 33 gm/dL (32-36); Mean Corpuscular Hemoglobin 29 pg (26-34); Mean Corpuscular Volume 86 fL (80-100); Monocytes Percent Auto 1.2 % (0.0-11.0); Neutrophils Percent Auto 91.3 % (42.0-72.0); Platelet Count* 209 K/uL (140-440); RDW Coefficient of Variation % 13.4 % (11.5-15.5); Red Blood Count 3.79 m/uL (4.00-5.20); White Blood Count* 5.65 K/uL (4.50-11.00)
[2024-01-12 22:52] LABS: Slide Review Reflex No
[2024-01-12 23:00] LABS: Albumin* 3.9 g/dL (3.3-5.0)
[2024-01-12 23:01] LABS: Chloride* 105 mmol/L (96-114); PCR FLU A Negative PCR FLU A (Negative); PCR FLU B Negative PCR FLU B (Negative); PCR RSV Negative PCR RSV (Negative); Potassium* 3.7 mmol/L (3.6-5.1); SARS PCR* Negative SARS-CoV-2 (Negative); Sodium* 134 mmol/L (135-149)
[2024-01-12 23:03] LABS: Estimated Glomerular Filt Rate 67 ml/min
[2024-01-12 23:04] LABS: Alanine Aminotransferase* 34 U/L (4-35); Alkaline Phosphatase* 369 U/L (40-150); Anion Gap 9 mEq/L (7-15); Aspartate Amino Transferase* 52 U/L (12-35); Bilirubin Direct* 0.8 mg/dL (0.0-0.5); Bilirubin Total* 0.9 mg/dL (0.1-1.5); Blood Urea Nitrogen* 29 mg/dL (7-30); Calcium* 8.8 mg/dL (8.4-10.6); Carbon Dioxide* 20 mmol/L (20-32); Glucose* 253 mg/dL (60-115); Lipase* 48 U/L (23-300); Total Protein* 7.5 g/dL (6.0-8.3)
[2024-01-12 23:36] LABS: Appearance Urine Cloudy (Clear); Bilirubin Urine 1+ (Negative); Blood Urine 1+ (Negative); Color Urine Yellow (Yellow); Glucose Urine Negative (Negative); Ketones Urine Trace (Negative); Leukocyte Esterase Urine Trace (Negative); Nitrite Urine Positive (Negative); Protein Urine 2+ (Negative); Specific Gravity Urine 1.015 (1.000-1.030); pH Urine 5.5 (5.0-8.5)
[2024-01-12 23:52] LABS: RBC Urine 0-2 (0-2)
[2024-01-12 23:53] LABS: Amorphous Sediment Urine Moderate; Bacteria Urine Moderate; Mucus Urine Few; Squamous Epithelial Cell Urine Few (None-Few)
[2024-01-13] VITALS: BP 118/78; PULSE 104; RESP 16; TEMP 36.9; O2SAT 97
[2024-01-13 01:07] VITALS: BP 108/68; PULSE 100; RESP 16; TEMP 37.1; O2SAT 98
[2024-01-13] MEDS: CIPROFLOXACIN 500 MG TABLET PO (01:07)
--- NOTE | 2024-01-13 10:59 | ED.NURSE ---
Addendum entered by Yamilet Rosales RN 01/13/24 13:37: Spoke to patient's daughter who reports that patient will return to the ED shortly. Original Note: Patient was contacted via [employer] filling machine operator [phone] by telephone. No answer at patient's phone so voicemail left instructing patient to return to ED or call department at [phone]. Will attempt to contact patient again if no response in a few hours.
--- NOTE | 2024-01-14 12:32 | ED_ITS ---
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 Patient has been seen recently for urinary tract symptoms and had abnormal urinalysis on 01/11- prescribe Cipro. She also had blood cultures drawn during her 1st visit. They came back positive for Gram-negative rods yesterday (id and sensitivity still pending at this time). She return to the ER for a follow-up visit ER yesterday. She received a dose of IM Rocephin and was discharged to home. Urine culture is positive today for E coli. It is resistant to ciprofloxacin, gentamicin, ampicillin, but is sensitive to cephalosporins, levothyroxine, nitrofurantoin, and Zosyn. I contacted the patient at about 9:00 a.m. this morning. Because of language b arrier I was not able to communicate with her over the phone. [facility] were able [facility]. We arranged a 3 [address] phone call and I discussed the patient's findings with her at about 12:30 p.m. she says that she is not febrile. No nausea. No weakness. She was able to go to work today. She is having achiness in her upper back. She says the back pain is really not in her kidney or her lower back or flank. She has been taking Toradol for but it is not helping very much. We discussed that her urine cultured does show E coli which is resistant to the Cipro. She will discontinue that antibiotic. Will start the patient on cephalosporins- Keflex 500 b.i.d. for 10 days. The patient says she will be able to fill that prescription today and start taking the new antibiotic. Discussed in detail that the the patient has any worsening symptoms she should return to the ER right away to be rechecked (because of her complicated UTI and bacteremia). She verbalizes her understanding. If she needs stronger pain meds for her upper back, she would have to return to the ER for re-evaluation. She says she will come back if she needs to but does not want to come back today. He questions answered. Patient will fill the new antibiotic and started today. Related Data Home Medications ?Medication ?Instructions ?Recorded ?Confirmed aspirin 81 mg tablet,delayed 81 mg PO QPM 11/08/22 01/13/24 release Previous Rx's ?Medication ?Instructions ?Recorded pen needle, diabetic 31 gauge x #100 ea 01/17/2311/26 (CareTouch Pen Needle) ergocalciferol (vitamin D2) 1,250 1,250 mcg PO QWEEK #13 caps 05/09/23 mcg (50,000 unit) capsule lisinopril 40 mg tablet 40 mg PO QDAY #90 tabs 05/09/23 amlodipine 10 mg tablet 10 mg PO QDAY #90 tabs 08/15/23 ondansetron 4 mg disintegrating 4 mg PO Q6H #5 tabs 10/24/23 tablet gabapentin 100 mg capsule 100 mg PO BID #60 caps 11/21/23 gabapentin 300 mg capsule 600 mg (2 x 300 mg) PO QPM #180 11/21/23 caps glyburide 5 mg tablet 5 mg PO QDAY #90 tabs 11/21/23 insulin NPH-regular 70-30 U-100 40 unit (0.4 mL) subcut BID #60 mL 11/21/23 insulin 100 unit/mL subcutaneous pen (Novolin 70-30 FlexPen U-100 Insulin) metformin 1,000 mg tablet 1,000 mg PO BIDWMEAL #180 tabs 11/21/23 naproxen 500 mg tablet 500 mg PO BID #180 tabs 11/21/23 ciprofloxacin HCl 500 mg tablet 500 mg PO Q12H #10 tabs 01/13/24 ketorolac 10 mg tablet 10 mg PO Q8H 5 days #15 tabs 01/13/24 ondansetron 4 mg disintegrating 4 mg PO Q8H PRN nausea and 01/13/24 tablet vomiting #7 tabs cephalexin 500 mg capsule 500 mg PO BID #20 caps 01/14/24 Allergies Allergy/AdvReac Type Severity Reaction Status Date / Time No Known Drug Allergies Allergy Verified 01/13/24 14:50 [facility] Medical History (Updated 01/13/24 @ 16:51 by Santino Crowley MD) COVID-19 ?U07.1 - COVID-19 (ICD-10) Mixed hyperlipidemia ?E78.2 - Mixed hyperlipidemia (ICD-10) Type 2 diabetes mellitus, with long-term current use of insulin ?E11.9 - Type 2 diabetes mellitus without complications (ICD-10) ?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 (ICD-10) Primary hypertension ?I10 - Essential (primary) hypertension (ICD-10) [place] grade 2 cystocele ?N81.10 - Cystocele, unspecified (ICD-10) Depression ?F32.A - Depression, unspecified (ICD-10) Diabetic neuropathy ?E11.40 - Type 2 diabetes mellitus with diabetic neuropathy, unspecified (ICD-10) Vitamin D deficiency ?E55.9 - Vitamin D deficiency, unspecified (ICD-10) Surgical History History of vaginal delivery History of 2 sections ?Z98.891 - History of uterine scar from previous surgery (ICD-10) History of tubal ligation (2006) ?Z98.51 - Tubal ligation status (ICD-10) Hx laparoscopic cholecystectomy (04/25/05) ?Z90.49 - Acquired absence of other specified parts of digestive tract (ICD- 10) Family History Father Liver disease Alcohol dependence Brother Diabetes Mother Diabetes Son Family history of testicular cancer, Onset Age: 26 Other No family history of breast cancer No family history of colorectal cancer Social History Narrative: , three kids, 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 [employer], nonsmoker, no EtOH Smoking Status: Never smoker Do you use any of these nicotine containing products: None Second hand tobacco smoke exposure: No How often do you have a drink containing alcohol: never AUDIT-C Alcohol total score: 0 Non-prescribed substance use: denies use Little interest or pleasure in doing things: not at all Feeling down, depressed, or hopeless: not at all service: No Course Vital Signs Vital signs: Initial Vital Signs Temperature 98 F 01/12/24 19:59 Temperature Source Temporal Artery Scan 01/12/24 19:59 Pulse Rate 124 H 01/12/24 19:59 Respiratory Rate 18 01/12/24 19:59 Blood Pressure 160/80 H 01/12/24 19:59 Blood Pressure Mean 106 H 01/12/24 19:59 Blood Pressure Position Sitting 01/12/24 19:59 Pulse Oximetry 98 01/12/24 19:59 Oxygen Delivery Method Room Air 01/12/24 19:59 Vital Signs Temperature 98 F 01/12/24 19:59 Pulse Rate 124 H 01/12/24 19:59 Respiratory Rate 18 01/12/24 19:59 Blood Pressure 160/80 H 01/12/24 19:59 Pulse Oximetry 98 01/12/24 19:59 Oxygen Delivery Method Room Air 01/12/24 19:59 Temperature 98.8 F 01/13/24 01:07 Pulse Rate 100 01/13/24 01:07 Respiratory Rate 16 01/13/24 01:07 Blood Pressure 108/68 01/13/24 01:07 Pulse Oximetry 98 01/13/24 01:07 Oxygen Delivery Method Room Air 01/13/24 01:07 Medications Administered Medications: Discontinued Medications Generic Name Dose Route Start Last Admin Trade Name Meagan PRN Reason Stop Dose Admin Ciprofloxacin 500 mg 01/13/24 00:51 01/13/24 01:07 Ciprofloxacin 500 Mg Tablet PO 01/13/24 00:52 500 mg ONCE ONE Administration Sodium Chloride 1,000 mls @ 1,000 mls/hr 01/12/24 20:45 01/12/24 22:14 0.9 % Sodium Chloride 1000 Ml IV 01/12/24 21:44 1,000 mls/hr .Q1H ENRIQUE Administration Sodium Chloride 1,000 mls @ 1,000 mls/hr 01/12/24 23:15 01/12/24 23:11 0.9 % Sodium Chloride 1000 Ml IV 01/13/24 00:14 1,000 mls/hr .Q1H ENRIQUE Administration Ketorolac Tromethamine 15 mg 01/12/24 20:45 01/12/24 22:15 Ketorolac 15 Mg/Ml Inj IVP 01/12/24 20:46 15 mg ONCE ONE Administration Ondansetron HCl 4 mg 01/12/24 21:52 01/12/24 22:20 Ondansetron 2 Mg/Ml Inj IVP 01/12/24 21:53 4 mg ONCE ONE Administration Medical Decision Making Lab Data Labs: Lab Results 01/12/24 01/12/24 Range/Units 22:00 23:15 WBC 5.65 (4.50-11.00) K/uL RBC 3.79 L (4.00-5.20) m/uL Hgb 10.9 L (12.0-16.0) gm/dL Hct 32.6 L (33.0-51.0) % MCV 86 (80-100) fL MCH 29 (26-34) pg MCHC 33 (32-36) gm/dL RDW Coeff of Ansley 13.4 (11.5-15.5) % Plt Count 209 (140-440) K/uL Neut % (Auto) 91.3 H (42.0-72.0) % Lymph % (Auto) 6.0 L (20-44) % Perkins % (Auto) 1.2 (0.0-11.0) % Eos % (Auto) 0.4 (0.0-7.0) % Baso % (Auto) 0.0 (0.0-3.0) % Neut # (Auto) 5.20 (1.7-7.0) K/uL Lymph # (Auto) 0.30 L (0.90-2.90) K/uL Perkins # (Auto) 0.10 (0.00-0.90) K/UL Eos # (Auto) 0.02 (0.00-0.50) K/uL Baso # (Auto) 0.00 (0.00-0.30) K/uL Abs Immat Gran (auto) 0.06 (0.00-0.30) K/uL Imm/Tot Granulo (auto) 1.1 % Sodium 134 L (135-149) mmol/L Potassium 3.7 (3.6-5.1) mmol/L Chloride 105 (96-114) mmol/L Carbon Dioxide 20 (20-32) mmol/L Anion Gap 9 (7-15) mEq/L BUN 29 (7-30) mg/dL Creatinine 1.0 (0.5-1.5) mg/dL Estimated GFR 67 ml/min Glucose 253 H (60-115) mg/dL Lactate 2.3 H (0.5-1.9) mmol/L Calcium 8.8 (8.4-10.6) mg/dL Total Bilirubin 0.9 (0.1-1.5) mg/dL Direct Bilirubin 0.8 H (0.0-0.5) mg/dL AST 52 H (12-35) U/L ALT 34 (4-35) U/L Alkaline Phosphatase 369 H (40-150) U/L Total Protein 7.5 (6.0-8.3) g/dL Albumin 3.9 (3.3-5.0) g/dL Lipase 48 (23-300) U/L Urine Color Yellow (Yellow) Urine Appearance Cloudy A (Clear) Urine pH 5.5 (5.0-8.5) Ur Specific [place]al 1.015 (1.000-1.030) Urine Protein 2+ A (Negative) Urine Glucose (UA) Negative (Negative) Urine Ketones Trace A (Negative) Urine Blood 1+ A (Negative) Urine Nitrite Positive A (Negative) Urine Bilirubin 1+ A (Negative) Urine Urobilinogen 1.0 (0.2-1.0) Ur Leukocyte Esterase Trace A (Negative) Urine RBC 0-2 (0-2) Urine WBC 2-5 (0-5) Ur Squamous Epith Cells Few (None-Few) Amorphous Sediment Moderate A (None) Urine Bacteria Moderate A (None) Urine Mucus Few A (None) SARS-CoV-2 (PCR) Negative SARS-CoV-2 (Negative) Influenza Type A (PCR) Negative PCR FLU A (Negative) Influenza Type B (PCR) Negative PCR FLU B (Negative) RSV (PCR) Negative PCR RSV (Negative) Discharge Plan Discharge Clinical Impression: Complicated urinary tract infection, Nausea and vomiting, Thyroid nodule, Elevated alkaline phosphatase level Patient Disposition: Home w/ Parent or Adult Condition: Improved Instructions: Urinary Tract Infection in Women (DC) Additional Instructions: As we discussed, I suspect that your chills and nausea are from your bladder infection. We have started you on an antibiotic for this. I am glad that the anti nausea medicine and Toradol were effective at controlling your nausea and pain. Continue taking the antibiotic, ciprofloxacin, twice daily for 5 days. I have sent this prescription to your pharmacy. I have also sent a prescription for some more the anti nausea medicine, ondansetron. You may take this up to every 8 hours as needed for nausea and vomiting. Keep drinking lots of fluids to help flush out the bladder infection. It is okay to continue using Tylenol 1000 mg every 6 hours and or ibuprofen 600 mg every 6 hours as needed for discomfort as well. Her symptoms really should start to improve within about 48 hours. Often, when we do CT scans, we find unexpected things that are not related to your symptoms. We found a nodule in your upper chest, near the thyroid that needs further follow-up. It is about the size of a quarter. It is calcified and smooth and does not have obvious features of trouble. It will need a biopsy. You also had an elevation of 1 of your blood markers, alk phosphatase. Those 2 things are probably related, But not an immediate or dangerous threat to your health at this time. Please make a follow-up appointment within the next couple of weeks to see your primary care doctor to arrange the biopsy and further testing. Please bring a copy of this paperwork with you so that they can see what I am talking about. I will also send you with a copy of the report. Elaine comentamos, sospecho que catina escalofr?os y n?useas se deben a coreas infecci?n de vejiga. Le hemos iniciado un tratamiento con antibi?ticos para esto. Me alegra que el medicamento contra las n?useas y Toradol hayan sido eficaces para controlar las n?useas y el dolor. Contin?e tomando el antibi?tiburcio ciprofloxacina dos veces al d?a valarie 5 d?as. He enviado esta receta a coreas farmacia. Tambi?n le envi? nona receta para m?s medicamento contra las n?useas, ondansetr?n. Puede arsaln esto hasta cada 8 horas seg?n sea necesario para las n?useas y los v?mitos. Siga bebiendo muchos l?quidos para ayudar a eliminar la infecci?n de la vejiga. Tambi?n est? marisabel continuar usando Tylenol 1000 mg cada 6 horas o ibuprofeno 600 mg cada 6 horas seg?n sea necesario para las molestias. Catina s?ntomas realmente deber?an comenzar a mejorar en aproximadamente 48 horas. A menudo, cuando hacemos tomograf?as computarizadas, encontramos cosas inesperadas que no est?n relacionadas con catina s?ntomas. Encontramos un n?dulo en la parte superior de coreas pecho, cerca de la tiroides que necesita mayor seguimiento. Es aproximadamente del yee?o de nona moneda de veinticinco centavos. Est? calcificado y liso y no presenta caracter?sticas obvias de problemas. Necesitar? nona biopsia. Tambi?n tuvo nona elevaci?n de carmen de catina marcadores sangu?neos, la alk fosfatasa. Esas dos cosas probablemente est?n relacionadas, sergio no representan nona amenaza inmediata o peligrosa para coreas yusuf en jj momento. Programe nona vanita de seguimiento dentro de las pr?ximas semanas para trevon a coreas m?dico de atenci?n primaria y programar la biopsia y pruebas adicionales. Por favor traiga nona copia de esta documentaci?n para que puedan trevon de qu? estoy hablando. Tambi?n le enviar? nona copia del informe. Activity Level: Activity as Tolerated Discharge Diet: Regular Prescriptions: New ciprofloxacin HCl 500 mg tablet 500 mg PO Q12H Qty: 10 0RF ondansetron 4 mg tablet,disintegrating 4 mg PO Q8H PRN (Reason: nausea and vomiting) Qty: 7 0RF cephalexin 500 mg capsule 500 mg PO BID Qty: 20 0RF No Action aspirin 81 mg tablet,delayed release (DR/EC) 81 mg PO QPM (DME) pen needle, diabetic [CareTouch Pen Needle] 31 gauge x 5/16 needle See Rx Instructions .Route Qty: 100 5RF Rx Instructions: Injects BID ergocalciferol (vitamin D2) 1,250 mcg (50,000 unit) capsule 1,250 mcg PO QWEEK Qty: 13 3RF lisinopril 40 mg tablet 40 mg PO QDAY Qty: 90 3RF ondansetron 4 mg tablet,disintegrating 4 mg PO Q6H Qty: 5 0RF gabapentin 300 mg capsule 600 mg PO QPM Qty: 180 1RF glyburide 5 mg tablet 5 mg PO QDAY Qty: 90 1RF metformin 1,000 mg tablet 1,000 mg PO BIDWMEAL Qty: 180 1RF Novolin 70-30 FlexPen U-100 100 unit/mL (70-30) insulin pen 40 unit subcut BID Qty: 60 1RF naproxen 500 mg tablet 500 mg PO BID Qty: 180 3RF gabapentin 100 mg capsule 100 mg PO BID Qty: 60 2RF amlodipine 10 mg tablet 10 mg PO QDAY Qty: 90 1RF ketorolac 10 mg tablet 10 mg PO Q8H 5 Days Qty: 15 0RF Follow Up/Referrals: Demetrius Farris MD [Primary Care Provider] - Stand Alone Forms: [facility] Info Instructions
== END 2024-01-13 01:07 | disposition home or self-care (01) ==
PROVIDERS: Family Medicine; Emergency Provider Family Medicine; PCP Family Medicine
DX: N39.0 Urinary tract infection, site not specified (principal)
CPT/HCPCS: 36415; 71260; 74177; 80048; 80076; 81001; 83605; 83690; 85025; 87040; 87086; 87186; 87631; 96374; 96375; 99281; 99284; 99285; T1013; A9270; J1885; J2405; J7030; Q9967

== ENCOUNTER 2024-01-13 14:26 | Emergency (ER) | payer BC, SELFPAY ==
[2024-01-13 14:47] VITALS: BP 124/70; PULSE 90; RESP 18; TEMP 36.4; O2SAT 97; BMI 26.0
--- NOTE | 2024-01-13 15:06 | ED_ITS ---
HPI - General Adult General Chief complaint: Unspecified Complaint, Adult Stated complaint: abnormal labs Time Seen by Provider: 01/13/24 14:47 History of Present Illness HPI narrative: This 53-year-old female was seen yesterday in the emergency department here and treated for urinary tract infection. She is complaining of back pain in the flank region and did have dysuria symptoms. She is started on antibiotic medicines orally. Urine culture results returned with Gram-negative ryan and blood cultures were also obtained which returned with evidence of a Gram- negative ryan. Sensitivities are pending. The patient was called with these results and instructed to come back in for re-evaluation. She does arrive here in no acute distress but continues to have discomfort in her back. She arrives with normal vital signs. She has not had fever and does not have any tachycardia or hypoxia. She states that she had a urinary tract infection about 6 or 7 months ago. She does have type 2 diabetes but states that her hemoglobin A1c had come down and she has had better control more recently. Related Data Home Medications ?Medication ?Instructions ?Recorded ?Confirmed aspirin 81 mg tablet,delayed 81 mg PO QPM 11/08/22 01/13/24 release Previous Rx's ?Medication ?Instructions ?Recorded pen needle, diabetic 31 gauge x #100 ea 01/17/2311/26 (CareTouch Pen Needle) ergocalciferol (vitamin D2) 1,250 1,250 mcg PO QWEEK #13 caps 05/09/23 mcg (50,000 unit) capsule lisinopril 40 mg tablet 40 mg PO QDAY #90 tabs 05/09/23 amlodipine 10 mg tablet 10 mg PO QDAY #90 tabs 08/15/23 ondansetron 4 mg disintegrating 4 mg PO Q6H #5 tabs 10/24/23 tablet gabapentin 100 mg capsule 100 mg PO BID #60 caps 11/21/23 gabapentin 300 mg capsule 600 mg (2 x 300 mg) PO QPM #180 11/21/23 caps glyburide 5 mg tablet 5 mg PO QDAY #90 tabs 11/21/23 insulin NPH-regular 70-30 U-100 40 unit (0.4 mL) subcut BID #60 mL 11/21/23 insulin 100 unit/mL subcutaneous pen (Novolin 70-30 FlexPen U-100 Insulin) metformin 1,000 mg tablet 1,000 mg PO BIDWMEAL #180 tabs 11/21/23 naproxen 500 mg tablet 500 mg PO BID #180 tabs 11/21/23 ciprofloxacin HCl 500 mg tablet 500 mg PO Q12H #10 tabs 01/13/24 ketorolac 10 mg tablet 10 mg PO Q8H 5 days #15 tabs 01/13/24 ondansetron 4 mg disintegrating 4 mg PO Q8H PRN nausea and 01/13/24 tablet vomiting #7 tabs Allergies Allergy/AdvReac Type Severity Reaction Status Date / Time No Known Drug Allergies Allergy Verified 01/13/24 14:50 Review of Systems Status of ROS: Reports: 10 or more systems reviewed and unremarkable except as noted in History and below Narrative: Constitutional: No fevers, no weight gain or loss. Eyes: No discharge. No vision changes. HENT: No congestion, no sore throat, no ear pain. Cardiovascular: No chest pain, no palpitations. Respiratory: No shortness of breath, no wheezes, no cough. Gastrointestinal: No abdominal pain, no vomiting, no diarrhea. Genitourinary: No dysuria, no hematuria. Bilateral flank pain. Musculoskeletal: Normal range of motion. Skin: No rashes, no pruritis. Neurological: No dizziness, weakness, sensory change, speech change. Endo/Heme/Allergies: No bruising or bleeding. No polydipsia. Pysch: no suicidality, no anxiety, no insomnia. All other systems reviewed and are negative. 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 (ICD-10) Primary hypertension ?I10 - Essential (primary) hypertension (ICD-10) Raleigh-Walker grade 2 cystocele ?N81.10 - Cystocele, unspecified (ICD-10) Depression ?F32.A - Depression, unspecified (ICD-10) Diabetic neuropathy ?E11.40 - Type 2 diabetes mellitus with diabetic neuropathy, unspecified (ICD-10) Vitamin D deficiency ?E55.9 - Vitamin D deficiency, unspecified (ICD-10) Surgical History History of vaginal delivery History of 2 sections ?Z98.891 - History of uterine scar from previous surgery (ICD-10) History of tubal ligation (2006) ?Z98.51 - Tubal ligation status (ICD-10) Hx laparoscopic cholecystectomy (04/25/05) ?Z90.49 - Acquired absence of other specified parts of digestive tract (ICD- 10) Family History Father Liver disease Alcohol dependence Brother Diabetes Mother Diabetes Son Family history of testicular cancer, Onset Age: 26 Other No family history of breast cancer No family history of colorectal cancer Social History Narrative: , three kids, 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 HEENT: Normocephalic, atraumatic. Neck: Normal range of motion. Nontender. Supple. Heart: Regular. No murmurs. Normal rate. Intact distal pulses. Lungs: Clear to auscultation. No chest discomfort. No wheezes, rhonchi, or rales. Abdomen: Normal bowel sounds. Nontender. No rebound tenderness. Genitalia: Deferred. Back: No midline tenderness. Normal range of motion. Extremities: Normal range of motion. No injury. Skin: Intact. No rash. Warm. No erythema or pallor. Neurologic: No altered sensation. No weakness. Alert and oriented. Psychiatric: No suicidality. No anxiety or depression. No insomnia. Nursing notes and vitals signs are reviewed. Const: Vital Signs, click to edit/add: Vital Signs - 24 hr 01/13/24 14:47 Temperature 97.6 F Pulse Rate [Pulse Oximeter] 90 Respiratory Rate 18 Blood Pressure [Ri ght Upper Arm] 124/70 Pulse Oximetry 97 Oxygen Delivery Me thod Room Air Course Vital Signs Vital signs: Initial Vital Signs Temperature 97.6 F 01/13/24 14:47 Temperature Source Temporal Artery Scan 01/13/24 14:47 Pulse Rate 90 01/13/24 14:47 Pulse Rhythm Regular 01/13/24 14:47 Pulse Strength 3+ Normal 01/13/24 14:47 Respiratory Rate 18 01/13/24 14:47 Blood Pressure 124/70 01/13/24 14:47 Blood Pressure Mean 88 01/13/24 14:47 Blood Pressure Position Sitting 01/13/24 14:47 Pulse Oximetry 97 01/13/24 14:47 Oxygen Delivery Method Room Air 01/13/24 14:47 Vital Signs Temperature 97.6 F 01/13/24 14:47 Pulse Rate 90 01/13/24 14:47 Respiratory Rate 18 01/13/24 14:47 Blood Pressure 124/70 01/13/24 14:47 Pulse Oximetry 97 01/13/24 14:47 Oxygen Delivery Method Room Air 01/13/24 14:47 Temperature 97.6 F 01/13/24 14:47 Pulse Rate 90 01/13/24 14:47 Respiratory Rate 18 01/13/24 14:47 Blood Pressure 124/70 01/13/24 14:47 Pulse Oximetry 97 01/13/24 14:47 Oxygen Delivery Method Room Air 01/13/24 14:47 Medications Administered Medications: Generic Name Dose Route Start Last Admin Trade Name Freq PRN Reason Stop Dose Admin Lidocaine HCl 2.1 ml 01/13/24 15:03 01/13/24 15:33 Lidocaine 1% 5 Ml (Pf) 5 Ml Vial IM 2.1 ml DIRECTED PRN Administration Pain Discontinued Medications Generic Name Dose Route Start Last Admin Trade Name Freq PRN Reason Stop Dose Admin Ceftriaxone Sodium 1 gm 01/13/24 15:03 01/13/24 15:33 Ceftriaxone 1 Gm Vial IM 01/13/24 15:04 1 gm ONCE ONE Administration Ketorolac Tromethamine 10 mg 01/13/24 15:29 01/13/24 15:35 Ketorolac 10 Mg Tablet PO 01/13/24 15:30 10 mg ONCE ONE Administration Medical Decision Making MDM Narrative Medical decision making narrative: This patient returns today because blood cultures returned positive for a Gram- negative organism. Additional culture and sensitivity results are pending. The patient does arrive here with normal vital signs. She has not had any fever and has no other complaints except for some back pain. Labs were again drawn today to recheck her progress. Her lactate improved from yesterday's results of 2.3 to today at 1.5. Her white count is increased to around 15,000 thousand. The patient did receive an intramuscular injection of Rocephin 1 g. She also received an oral dose of Toradol 10 mg. The patient feels okay to return home. If culture and sensitivity results returned with further clarity of this infection that would need change in treatment of course this will be arranged with her. She has prescriptions for appropriate antibiotic treatment at this time. She did receive a prescription for Toradol. I encouraged her to monitor her blood glucose and take her medications accordingly. Lab Data Labs: Lab Results 01/13/24 Range/Units 15:22 WBC 15.06 H (4.50-11.00) K/uL RBC 3.37 L (4.00-5.20) m/uL Hgb 9.8 L (12.0-16.0) gm/dL Hct 28.9 L (33.0-51.0) % MCV 86 (80-100) fL MCH 29 (26-34) pg MCHC 34 (32-36) gm/dL RDW Coeff of Ansley 14.1 (11.5-15.5) % Plt Count 205 (140-440) K/uL Neut % (Auto) 84.5 H (42.0-72.0) % Lymph % (Auto) 7.8 L (20-44) % [place]ackelford % (Auto) 6.4 (0.0-11.0) % Eos % (Auto) 0.4 (0.0-7.0) % Baso % (Auto) 0.1 (0.0-3.0) % Neut # (Auto) 12.70 H (1.7-7.0) K/uL Lymph # (Auto) 1.20 (0.90-2.90) K/uL [place] # (Auto) 1.00 H (0.00-0.90) K/UL Eos # (Auto) 0.10 (0.00-0.50) K/uL Baso # (Auto) 0.00 (0.00-0.30) K/uL Abs Immat Gran (auto) 0.10 (0.00-0.30) K/uL Imm/Tot Granulo (auto) 0.8 % Sodium 136 (135-149) mmol/L Potassium 3.9 (3.6-5.1) mmol/L Chloride 106 (96-114) mmol/L Carbon Dioxide 22 (20-32) mmol/L Anion Gap 8 (7-15) mEq/L BUN 24 (7-30) mg/dL Creatinine 0.8 (0.5-1.5) mg/dL Estimated Creat Clear 63.58 Estimated GFR 88 ml/min Glucose 265 H (60-115) mg/dL Lactate 1.5 (0.5-1.9) mmol/L Calcium 8.6 (8.4-10.6) mg/dL Total Bilirubin 1.2 (0.1-1.5) mg/dL Direct Bilirubin 1.1 H (0.0-0.5) mg/dL AST 48 H (12-35) U/L ALT 40 H (4-35) U/L Alkaline Phosphatase 230 H (40-150) U/L Total Protein 6.7 (6.0-8.3) g/dL Albumin 3.4 (3.3-5.0) g/dL Discharge Plan Discharge Clinical Impression: Urinary tract infection Patient Disposition: Home, Self-Care Condition: Stable Additional Instructions: Take medications as prescribed. Follow up with MD return if worsening symptoms occur. Prescriptions: New ketorolac 10 mg tablet 10 mg PO Q8H 5 Days Qty: 15 0RF No Action aspirin 81 mg tablet,delayed release (DR/EC) 81 mg PO QPM (DME) pen needle, diabetic [CareTouch Pen Needle] 31 gauge x 5/16 needle See Rx Instructions .Route Qty: 100 5RF Rx Instructions: Injects BID ergocalciferol (vitamin D2) 1,250 mcg (50,000 unit) capsule 1,250 mcg PO QWEEK Qty: 13 3RF lisinopril 40 mg tablet 40 mg PO QDAY Qty: 90 3RF ondansetron 4 mg tablet,disintegrating 4 mg PO Q6H Qty: 5 0RF gabapentin 300 mg capsule 600 mg PO QPM Qty: 180 1RF glyburide 5 mg tablet 5 mg PO QDAY Qty: 90 1RF metformin 1,000 mg tablet 1,000 mg PO BIDWMEAL Qty: 180 1RF Novolin 70-30 FlexPen U-100 100 unit/mL (70-30) insulin pen 40 unit subcut BID Qty: 60 1RF naproxen 500 mg tablet 500 mg PO BID Qty: 180 3RF gabapentin 100 mg capsule 100 mg PO BID Qty: 60 2RF amlodipine 10 mg tablet 10 mg PO QDAY Qty: 90 1RF ciprofloxacin HCl 500 mg tablet 500 mg PO Q12H Qty: 10 0RF ondansetron 4 mg tablet,disintegrating 4 mg PO Q8H PRN (Reason: nausea and vomiting) Qty: 7 0RF Follow Up/Referrals: Demetrius Farris MD [Primary Care Provider] - Stand Alone Forms: [facility] Info Instructions
--- OUTSIDE RECORDS SUMMARY | 2024-01-13 15:10 | XMS_ITS | Clinical Summary ---
Author Organization [facility] Address [place], [place] [address] Care Team Providers Care Room Service Waiter Name Role Phone Unavailable Primary Care Provider [...] HPV THIN PREP Routine 08/01/2023 12:00 PM PROCESS EXCELLENCE MANAGER LIPID PANEL Routine 02/06/2022 4:34 PM CDT SCAN-MAMMOGRAPHY REPORT 02/13/2021 12:00 AM CDT from Last 3 Months or Most Recently Relevant to Health Maintenance Results * HPV HIGH RISK (08/01/2023 12:00 PM PROCESS EXCELLENCE MANAGER) TYPE 16 Negative Negative 08/06/2023 5:12 PM PROCESS EXCELLENCE MANAGER [facility] TYPE 18 Negative Negative 08/06/2023 5:12 PM PROCESS EXCELLENCE MANAGER [facility] OTHER HIGH RISK TYPES Negative Negative 08/06/2023 5:12 PM PROCESS EXCELLENCE MANAGER [facility] Other (Cervical) 08/01/2023 12:00 PM PROCESS EXCELLENCE MANAGER 08/04/2023 5:38 PM PROCESS EXCELLENCE MANAGER Narrative [facility] - 08/06/2023 5:12 PM PROCESS EXCELLENCE MANAGER HPV types 16, 18, 31, 33, 35, 39, 45, 51, 52, 56, 58, 59, 66 and 68 DNA were undetectable or below the pre-set threshold. Methodology: [facility] 4800 HPV Test Susanne Price PA-C MICROBIOLOGY [facility] [address] [place] [id number], * LIPID PANEL (02/06/2022 4:34 PM CDT) CHOLESTEROL,TOTAL 142 100 - 199 mg/dL 02/07/2022 10:[address] [facility] TRIGLYCERIDES 109 <150 mg/dL 02/07/2022 10:[address] [facility] HDL CHOLESTEROL 44 >40 mg/dL 10:[address] [facility] NON-HDL CHOLESTEROL 98 <145 mg/dl 02/07/2022 10:[address] [facility] CHOL/HDL RATIO 3.23 <4.50 02/07/2022 10:[address] [facility] LDL CHOLESTEROL 76 <=130 mg/dL 02/07/2022 10:[address] [facility] VLDL CHOLESTEROL 22 <=30 mg/dL 02/07/2022 10:[address] [facility] PROVIDER ORDERED STATUS RANDOM 02/07/2022 10:[address] [facility] Blood BLOOD SPECIMEN / Unknown 02/06/2022 4:34 PM CDT 02/07/2022 10:02 AM CDT Erwin Brown MD CHEMISTRY [facility] [address] [place] [address] * SCAN-MAMMOGRAPHY REPORT (02/13/2021 12:00 AM CDT) Anatomical Region Laterality Modality Other Scanner OTHER from Last 3 Months or Most Recently Relevant to Health [facility] Other 07/14/2000 ATTN SANDRA GARCIA [address] [place] [id number]
[2024-01-13 15:26] LABS: Lactate* 1.5 mmol/L (0.5-1.9)
[2024-01-13 15:31] LABS: Basophils Percent Auto 0.1 % (0.0-3.0); Eosinophils Percent Auto 0.4 % (0.0-7.0); Hematocrit 28.9 % (33.0-51.0); Hemoglobin* 9.8 gm/dL (12.0-16.0); Immature Granulocytes Pct Auto 0.8 %; Lymphocytes Percent Auto 7.8 % (20-44); Mean Corpuscular HGB Conc 34 gm/dL (32-36); Mean Corpuscular Hemoglobin 29 pg (26-34); Mean Corpuscular Volume 86 fL (80-100); Monocytes Percent Auto 6.4 % (0.0-11.0); Neutrophils Percent Auto 84.5 % (42.0-72.0); Platelet Count* 205 K/uL (140-440); RDW Coefficient of Variation % 14.1 % (11.5-15.5); Red Blood Count 3.37 m/uL (4.00-5.20); White Blood Count* 15.06 K/uL (4.50-11.00)
[2024-01-13] MEDS: cefTRIAXone 1 GM VIAL IM (15:33)
[2024-01-13] MEDS: LIDOCAINE 1% 5 ml (pf) 5 ML VIAL 2.1 ML IM (15:33)
[2024-01-13] MEDS: KETOROLAC 10 MG TABLET PO (15:35)
[2024-01-13 15:45] LABS: Slide Review Reflex No
[2024-01-13 15:47] LABS: Albumin* 3.4 g/dL (3.3-5.0); Chloride* 106 mmol/L (96-114)
[2024-01-13 15:48] LABS: Potassium* 3.9 mmol/L (3.6-5.1); Sodium* 136 mmol/L (135-149)
[2024-01-13 15:50] LABS: Anion Gap 8 mEq/L (7-15); Carbon Dioxide* 22 mmol/L (20-32); Creatinine* 0.8 mg/dL (0.5-1.5); Est. Creatinine Clearance* 63.58; Estimated Glomerular Filt Rate 88 ml/min
[2024-01-13 15:51] LABS: Alanine Aminotransferase* 40 U/L (4-35); Alkaline Phosphatase* 230 U/L (40-150); Aspartate Amino Transferase* 48 U/L (12-35); Bilirubin Direct* 1.1 mg/dL (0.0-0.5); Bilirubin Total* 1.2 mg/dL (0.1-1.5); Blood Urea Nitrogen* 24 mg/dL (7-30); Calcium* 8.6 mg/dL (8.4-10.6); Glucose* 265 mg/dL (60-115); Total Protein* 6.7 g/dL (6.0-8.3)
[2024-01-13 17:01] VITALS: BP 131/75; PULSE 76; TEMP 36.8
== END 2024-01-13 17:03 | disposition home or self-care (01) ==
PROVIDERS: Emergency Provider Emergency Medicine Emergency Medical Services; PCP Family Medicine
DX: N39.0 Urinary tract infection, site not specified (principal)
CPT/HCPCS: 36415; 80048; 80076; 83605; 85025; 96372; 99284; A9270; J0696

== ENCOUNTER 2024-01-21 16:28 | Outpatient (CLI) | payer BC, SELFPAY ==
--- OUTSIDE RECORDS SUMMARY | 2024-01-21 16:31 | XMS_ITS | Clinical Summary ---
Author Organization [employer] [facility] [employer] [facility] Address [place], [place] [address] Care Team Providers Care Housekeeping Director Name Role Phone Unavailable Primary Care Provider [...] HPV THIN PREP Routine 08/01/2023 12:00 PM SKILLED LABOR LIPID PANEL Routine 02/06/2022 4:34 PM CDT SCAN-MAMMOGRAPHY REPORT 02/13/2021 12:00 AM CDT from Last 3 Months or Most Recently Relevant to Health Maintenance Results * HPV HIGH RISK (08/01/2023 12:00 PM SKILLED LABOR) TYPE 16 Negative Negative 08/06/2023 5:12 PM SKILLED LABOR [facility] TYPE 18 Negative Negative 08/06/2023 5:12 PM SKILLED LABOR [facility] OTHER HIGH RISK TYPES Negative Negative 08/06/2023 5:12 PM SKILLED LABOR [facility] Other (Cervical) 08/01/2023 12:00 PM SKILLED LABOR 08/04/2023 5:38 PM SKILLED LABOR Narrative [facility] - 08/06/2023 5:12 PM SKILLED LABOR HPV types 16, 18, 31, 33, 35, 39, 45, 51, 52, 56, 58, 59, 66 and 68 DNA were undetectable or below the pre-set threshold. Methodology: [employer] 4800 HPV Test Susanne Price PA-C MICROBIOLOGY [facility] [address] [place] [id number], * LIPID PANEL (02/06/2022 4:34 PM CDT) CHOLESTEROL,TOTAL 142 100 - 199 mg/dL 02/07/2022 10:45 AM [facility] TRIGLYCERIDES 109 <150 mg/dL 02/07/2022 10:45 AM [facility] HDL CHOLESTEROL 44 >40 mg/dL 10:45 AM [facility] NON-HDL CHOLESTEROL 98 <145 mg/dl 02/07/2022 10:45 AM [facility] CHOL/HDL RATIO 3.23 <4.50 02/07/2022 10:45 AM [facility] LDL CHOLESTEROL 76 <=130 mg/dL 02/07/2022 10:45 AM [facility] VLDL CHOLESTEROL 22 <=30 mg/dL 02/07/2022 10:45 AM [facility] PROVIDER ORDERED STATUS RANDOM 02/07/2022 10:45 AM [facility] Blood BLOOD SPECIMEN / Unknown 02/06/2022 4:34 PM CDT 02/07/2022 10:02 AM CDT Erwin Brown MD CHEMISTRY [facility] [address] [place] [address] * SCAN-MAMMOGRAPHY REPORT (02/13/2021 12:00 AM CDT) Anatomical Region Laterality Modality Other Scanner OTHER from Last 3 Months or Most Recently Relevant to Health Maintenance [facility] Other 07/14/2000 ATTN SANDRA GARCIA [address] [place] [id number]
== END 2024-01-21 16:29 | disposition home or self-care (01) ==
LOC: NFLDREF 16:29
PROVIDERS: PCP Family Medicine; Visit Provider Internal Medicine
DX: E04.1 Nontoxic single thyroid nodule (principal); D64.9 Anemia, unspecified
CPT/HCPCS: 84443

== ENCOUNTER 2024-02-03 15:51 | Outpatient (CLI) | payer BC, SELFPAY ==
--- OUTSIDE RECORDS SUMMARY | 2024-02-03 15:54 | XMS_ITS | Clinical Summary ---
Author Organization [employer] [facility] Address [place], [place] [address] Care Team Providers Care Medical Claims Examiner Name Role Phone Unavailable Primary Care Provider [...] HPV THIN PREP Routine 08/01/2023 12:00 PM MACHINIST CLASS B LIPID PANEL Routine 02/06/2022 4:34 PM CDT SCAN-MAMMOGRAPHY REPORT 02/13/2021 12:00 AM CDT from Last 3 Months or Most Recently Relevant to Health Maintenance Results * HPV HIGH RISK (08/01/2023 12:00 PM MACHINIST CLASS B) TYPE 16 Negative Negative 08/06/2023 5:12 PM MACHINIST CLASS B [facility] TYPE 18 Negative Negative 08/06/2023 5:12 PM MACHINIST CLASS B [facility] OTHER HIGH RISK TYPES Negative Negative 08/06/2023 5:12 PM MACHINIST CLASS B [facility] Other (Cervical) 08/01/2023 12:00 PM MACHINIST CLASS B 08/04/2023 5:38 PM MACHINIST CLASS B Narrative [facility] - 08/06/2023 5:12 PM MACHINIST CLASS B HPV types 16, 18, 31, 33, 35, 39, 45, 51, 52, 56, 58, 59, 66 and 68 DNA were undetectable or below the pre-set threshold. Methodology: [employer] 4800 HPV Test Susanne Price PA-C MICROBIOLOGY [facility] [address] [place] [id number], * LIPID PANEL (02/06/2022 4:34 PM CDT) CHOLESTEROL,TOTAL 142 100 - 199 mg/dL 02/07/2022 10:45 AM [facility] TRIGLYCERIDES 109 <150 mg/dL 02/07/2022 10:45 AM [facility] HDL CHOLESTEROL 44 >40 mg/dL 10:45 AM [facility] NON-HDL CHOLESTEROL 98 <145 mg/dl 02/07/2022 10:45 AM [facility] CHOL/HDL RATIO 3.23 <4.50 02/07/2022 10:45 AM [facility] LDL CHOLESTEROL 76 <=130 mg/dL 02/07/2022 10:45 AM [facility] VLDL CHOLESTEROL 22 <=30 mg/dL 02/07/2022 10:45 AM [facility] PROVIDER ORDERED STATUS RANDOM 02/07/2022 10:45 AM [facility] Blood BLOOD SPECIMEN / Unknown 02/06/2022 4:34 PM CDT 02/07/2022 10:02 AM CDT Erwin Brown MD CHEMISTRY [facility] [address] [place] [address] * SCAN-MAMMOGRAPHY REPORT (02/13/2021 12:00 AM CDT) Anatomical Region Laterality Modality Other Scanner OTHER from Last 3 Months or Most Recently Relevant to Health Maintenance [facility] Other 07/14/2000 ATTN SANDRA GARCIA [address] [place] [id number]
--- OUTSIDE RECORDS SUMMARY | 2024-02-03 15:54 | XMS_ITS | Data Portability ---
Author Organization [facility] OFFICE Address [address] [place] [address] [place] [address] Assessment No assessment recorded. Plan of Treatment Reminders Order Date Submit Date Provider Last Modified By Organization Details Last Modified Time Details Appointments None recorded. Lab urinalysis , complete 2021 022 [facility]- Lab, [address] [place] [address], [address], 2 17:06:35 CBC [address]- Lab, [address] [place], [address], 3 12:00:35 CMP, serum or plasma [address] Lab, [address] [place] [address], [address], 3 11:59:56 lipid panel, serum [address]- Lab, [address] [place], [address], 3 11:59:57 microalbum in/creatin ine, mass ratio, urine [address] Lab, [address] [place] [address], [address], 3 11:59:57 hemoglobin A1C/hemogl obin total, QN, blood [address]- Lab, [address] [place], [address], 3 11:59:57 Referral None recorded. Procedures None recorded. Surgeries None recorded. Imaging US, duplex, venous, lower extremity, unilateral - left only 2021 [facility] Radiology Department, [address] [place], [address], 2 14:05:58 RF, colon, w/ air, w/ contrast VT 2021 [facility] Radiology Department, [address] [place], [address], 3 13:04:43 Medication Orders lisinopril 40 mg tablet 2021 [facility], [address] [place] [address], [address], 2 16:17:36 ergocalcif julieta (vitamin D2) 1,250 mcg (50,000 unit) capsule 2021 [facility], [address] [place] [address], [address], 2 18:52:42 amitriptyl ine 25 mg tablet 2021 [facility], [address] [place], [address], 18:50:03 glyburide 5 mg tablet 2021 [facility], [address] [place] [address], [address], 2 17:40:42 hydrochlor othiazide 25 mg tablet 2022 023 [facility], [address] [place] [address], [address], 3 10:58:54 triamcinol one acetonide 0.5 % topical cream [address], [address], 3 10:59:53 glyburide 5 mg tablet [address], [address], 3 14:12:18 triamcinol one acetonide 0.5 % topical cream [address], [address], 3 14:12:27 metformin 1,000 mg tablet [address], [address], 3 17:12:06 gabapentin 100 mg capsule [address], [address], 3 14:12:10 lisinopril 40 mg tablet [address], [address], 3 14:12:36 ergocalcif julieta (vitamin D2) 1,250 mcg (50,000 unit) capsule [address], [address], 3 18:55:20 hydrochlor othiazide 25 mg tablet [address] [place], [address], 18:55:21 Patient TargetsNo targets recorded. Patient Instructions Encounter Date Encounter Id Patient Instructions Last Modified By Organization Details Last Modified Time 04/30/2022 [id number] eat regularly, try to get glucose to 120 ezra Not available 05/01/2022 16:14:55 05/14/2022 [id number] watch for drowsiness, dry mouth and constipation with meds, calland leave message about any side effects ezra Not available 05/15/2022 11:21:19 UTI treated, needs f/u question ezra Not available 05/16/2022 12:45:40 05/21/2022 [id number] watch for drowsiness with meds, glucose and BP need improvement after BE ezra Not available 05/23/2022 09:59:38 check on BETHANY ezra Not available 18:12:15 07/23/2022 [id number] use cream twice a day on leg ezra Not available 07/29/2022 13:51:21 need to follow u p on stress ezra Not available 07/29/2022 13:51:41 09/10/2022 [id number] watch for low glucose on days when [...] [facility], Encounter Date: 05/11/2020 Sheepskin Pickler/dietitian Refer ral for Diabetes mellitus Referring Physician: [facility], Encounter Date: 05/11/2020 Senior Mechanical Technician Referral for Me nopausal syndrome Referring Physician: [...] i Ag, stool TSH 1.160 Not Available [facility]- Lab [address] [place], [address], 05/20/2022 12:36:23 05/14/20 22 05/14/2022 TSH, serum or plasm a TSH 1.160 Not Available [facility]- Lab [address] [place], [address], 05/20/2022 12:36:23 05/14/20 22 05/14/2022 fecal occul t blood , stool TSH 1.160 Not Available [facility]- Lab [address] [place], [address], 05/20/2022 12:36:23 05/14/20 22 05/14/2022 urina lysis , compl ete TSH 1.160 Not Available [facility]- Lab [address] [place], [address], 05/17/2022 15:38:26 04/01/20 22 04/01/2022 US, abdom en No observ ation record ed. [facility] Radiology Department [address] [place], [address], 04/02/2022 17:18:01 05/17/20 22 05/17/2022 US, duple x, venou s, lower extre mity, unila teral No observ ation record ed. [facility] Radiology Department [address] [place], [address], 05/21/2022 08:20:31 08/16/19 23 08/16/2022 RF, colon , w/ air, w/ contr ast VT No observ ation record ed. [facility] Radiology Department [address] [place], [address], 08/19/2022 14:10:21 Result Notes None recorded. Problems Name Status Onset Date Resolution Date Notes Provider Name and Address Organization Details Recorded Time Microalbuminuria Active 021 Erwin Brown MD [address] [place], [address] , [facility] [employer] 05/01/2022 16:04:27 Depressive disorder Active 021 Rebecca Scott NP [address] [place], [address] , [facility] 01/17/2021 12:11:39 Vitamin D deficiency Active 021 Rebecca Scott NP [address] [place], [address] , [facility] [employer] [facility] 01/17/2021 12:11:50 Systolic murmur Active 021 Rebecca Scott NP [address] [place], [address] , [facility] 01/17/2021 12:11:58 Lichen simplex chronicus Active 021 Rebecca Scott NP [address] [place], [address] , [facility] 01/17/2021 12:12:23 Ligation of bilateral fallopian tubes Active 021 Rebecca Scott NP [address] [place], [address] , [facility] [employer] [facility] 01/17/2021 12:12:38 Essential hypertension Active 022 Erwin Brown MD [address] [place] [address], [address] , [facility] 03/14/2022 11:17:21 Type II diabetes mellitus uncontrolled Active 023 Erwin Brown MD [address] [place] [address], [address] , [facility] [employer] [facility] 09/10/2022 19:32:06 Problem Notes None recorded. Procedures Surgical History Date Name Laterality Status Provider Name and Address Organization Details Recorded Time 01/18/20 18 Date of Last Pap Smear completed Rebecca Scott, ORA [address] [place], [address], [facility] 01/17/2021 16:30:52 01/18/20 18 Date of Last Mammogram completed Rebecca Scott NP [address] [place], [address], [facility] 01/17/2021 16:31:08 07/14/19 06 Removal of gallbladder completed Rebecca Scott NP [address] [place], [address], [facility] 01/17/2021 16:23:25 ligation of bilateral fallopian tubes completed Rebecca Scott NP [address] [place], [address], [facility] 01/17/2021 12:12:50 delivery completed Rebecca Scott, ORA [address] [place], [address], [facility] 01/17/2021 12:12:57 Imaging Results Imaging Date Name Status LastModified by Organiz ation Details LastModified Time 04/01/2022 US, abdomen completed [facility] Radiology Department [address] [place], [address], 04/02/2022 17:18:01 05/17/2022 US, duplex, venous, lower extremity, unilateral completed [facility] Radiology Department [address] [place], [address], 05/21/2022 08:20:31 08/16/2022 RF, colon, w/ air, w/ contrast VT completed [facility] Radiology Department [address] [place], [address], 08/19/2022 14:10:21 Procedure Notes None recorded. Medical [...] Last Updated DateTime 149.86 cm 24.8 kg/m2 88752.8 6 g 91 /min 184 mm[Hg] 91 mm[Hg] Dione Josephs [facility] 2 18:40:56 Date Recorded Body height Body mass index (BMI) Body weight Systolic blood pressure Diastolic blood pressure Provider Name and Address Organization Details Last Updated DateTime 05/14/2022 149.86 cm 25.6 kg/m2 17196.51 g 180 mm[Hg] 95 mm[Hg] Erwin Brown MD [address] [place], [address] [place] [address] [employer] 2 11:14:00 Date Recorded Body height Body mass index (BMI) Body weight Systolic blood pressure Diastolic blood pressure Provider Name and Address Organization Details Last Updated DateTime 07/23/2022 149.86 cm 25.4 kg/m2 28562.64 g 154 mm[Hg] 82 mm[Hg] Erwin Brown MD [address] [place], [address] [facility] 3 18:51:14 Date Recorded Body height Body mass index (BMI) Body weight Systolic blood pressure Diastolic blood pressure Provider Name and Address Organization Details Last Updated DateTime 09/10/2022 149.86 cm 26.9 kg/m2 39839.79 g 153 mm[Hg] 90 mm[Hg] Erwin Brown MD [address] [place], [address] [place], [place] - [facility] 3 19:06:59 Social History Question Answer Notes LastModified by Organizat ion Details LastModified Time Tobacco Smoking Status Never Smoker Charissa Vazquez [place], [place] - [facility] 05/24/2020 19:49:06 What Is Your Level Of Alcohol Consumption? None [email or web address] Information not available 01/17/2021 Are You Currently Employed? Yes Information not available 03/14/2022 Who Is Your Employer? [employer] Information not available 03/14/2022 Do You Feel Safe At Home? Yes Information not available 03/14/2022 How Many Children Do You Have? 1 [email or web address] Information not available 04/30/2022 What Is Your Relationship Status? Single [email or web address] Information not available 04/30/2022 Sex: Unknown Functional [...] Encounter Closed Date Diagnosis/Indication Diagnosis SNOMED-CT Code [id number] Clinton Prince MD [facility] [address] [place] [address] 05/02/2020 17:49:21 05/02/2020 20:47:05 Menopausal syndrome 780039991 Type 2 peyton betes mellitus without complication 497243430 [id number] Clinton Prince MD [facility] [address] [place] [address] 05/18/2020 18:03:12 05/18/2020 20:42:36 Diabetes mellitus 67992292 Menopausal syndrome 1237 66361 02846 Luzma Snow [facility] [address] [place] [address] 05/24/2020 19:24:20 05/24/2020 20:25:52 Diabetes mellitus 23566780 Menopausal syndrome 1237 82039 30035 Mari Britton NP [facility] [address] [place] [address] 12/06/2020 17:04:00 12/06/2020 17:41:40 Type II diabetes mellitus uncontrolled 848355786 Microalbuminuria 6540431 06 [address] Erwin Brown MD [facility] [address] [place] [address] 12/12/2020 18:15:59 12/13/2020 12:37:55 Type 2 diabetes mellitus without complication 335076997 49625 Rebecca Scott NP [facility] [address] [place] [address] 01/17/2021 16:04:43 01/17/2021 18:13:53 Screening for malignant neoplasm of cervix 669770528 Screening for malignant neoplasm of breast 783460089 Screening for malignant neoplasm of colon 781224133 Essential hypertension 89343451 Type 2 peyton betes mellitus without complication 314950760 79154 Erwin Brown MD [facility] [address] [place] [address] 02/13/2021 18:15:04 02/13/2021 18:53:56 Type 2 diabetes mellitus 57010066 47800 Erwin Brown MD [facility] [address] [place] [address] 04/03/2021 18:07:26 04/03/2021 18:38:52 Type 2 diabetes mellitus without complication 272511357 79552 Erwin Brown MD [facility] [address] [place] [address] 06/26/2021 18:17:09 06/26/2021 18:57:41 Type 2 diabetes mellitus without complication 301760859 09587 Erwin Brown MD [facility] [address] [place] [address] 08/07/2021 18:13:56 08/07/2021 18:47:43 Indigestion 784998370 17788 Erwin Brown MD [facility] [address] [place] [address] 10/16/2021 19:31:08 10/16/2021 19:54:21 Type 2 diabetes mellitus without complication 963808044 45629 Erwin Brown MD [facility] [address] [place] [address] 11/27/2021 18:30:22 11/27/2021 18:58:24 Type 2 diabetes mellitus without complication 005805762 26716 Erwin Brown MD [facility] [address] [place] [address] 03/14/2022 09:58:30 03/14/2022 10:40:45 Type 2 diabetes mellitus without complication 656288905 Essential hypertension 74522427 Indigestion 389603066 Type 2 peyton betes mellitus 56190910 Anemia 564685045 Right uppe r quadrant pain 839114957 87449 Erwin Brown MD [facility] [address] [place] [address] 04/30/2022 18:33:14 04/30/2022 19:16:25 Type 2 diabetes mellitus without complication 822459375 Essential hypertension 50916180 39281 Erwin Brown MD [facility] [address] [place] [address] 05/14/2022 18:03:25 05/14/2022 18:35:46 Pain of left calf 0973215230326 109 [facility] 23263728 [address]0540 Erwin Brown MD [facility] [address] [place] [address] 05/21/2022 17:33:26 05/21/2022 18:12:55 Acute urinary tract infection 912568829 Colorectal cancer detected by DNA-based stool screening 623758182 Type 2 peyton betes mellitus without complication 490248884 Essential hypertension 34483509 Type 2 peyton betes mellitus 54539135 00187 Erwin Brown MD [facility] [address] [place] [address] 07/23/2022 18:31:45 07/23/2022 18:57:51 Type 2 diabetes mellitus without complication 814935747 Essential hypertension 33537972 Colorectal cancer detected by DNA-based stool screening 803699512 05338 Erwin Brown MD [facility] [address] [place] [address] 09/10/2022 18:11:37 09/10/2022 18:58:06 Type II diabetes mellitus uncontrolled 771322518 Essential hypertension 15725164 Type 2 peyton betes mellitus without complication 669126063 Type 2 peyton betes mellitus 46784652 Stool finding 712632400 Health Concerns Section Related Observation LastModified by Organization Detai ls LastModified Time None Recorded Concern Status LastModified by Organization Details LastModified Time None Recorded Advance Directives Directive None Recorded Payers Encounter Date Sequence Insurance Name Policy Number Policy Flores Covered Member ID Flores Member ID Guarantor Name 04/30/2022 SLIDING FEE SCHEDULE - DISCOUNT Kenia Annetta [place] 05/14/2022 SLIDING FEE SCHEDULE - DISCOUNT Kenia Gopal [place] 05/21/2022 SLIDING FEE SCHEDULE - DISCOUNT Kenia Gopal [place] 07/23/2022 SLIDING FEE SCHEDULE - DISCOUNT Kenia Annetta [place] 09/10/2022 SLIDING FEE SCHEDULE - DISCOUNT Kenia Gopal [place] OBGyn Episode No OBEpisode recorded.
--- NOTE | 2024-02-03 16:00 | CRLHL7_ITS ---
For Patients: As a result of the Century Cures Act, medical imaging exams and procedure reports are released immediately into your electronic medical record. You may view this report before your referring provider. If you have questions, please contact your health care provider. INDICATION: Follow-up CT COMPARISON: CT chest 01/13/2024 TECHNIQUE: Cloud scale and color Doppler images were acquired of the thyroid gland. FINDINGS: Hypoechoic left thyroid lobe nodule with coarse calcifications measures 11 x 10 x 10 millimeters, TR 4. The right lobe measures 4.2 x 1.8 x 1.3 cm and the left lobe measures 4.9 x 1.4 x 1.6 cm in size. The color Doppler images demonstrate normal vascularity. There is no evidence of cervical lymphadenopathy or parathyroid mass. IMPRESSION: 1.1 cm TR 4 nodule left thyroid lobe. One year follow-up recommended. Dictated by Demetrius Serrano MD @ 02/05/2024 8:44:48 AM (Electronically Signed)
== END 2024-02-03 15:52 | disposition home or self-care (01) ==
LOC: US 15:52
PROVIDERS: PCP Family Medicine; Visit Provider Internal Medicine
DX: E04.1 Nontoxic single thyroid nodule (principal)
CPT/HCPCS: 76536; T1013

== ENCOUNTER 2024-02-12 08:14 | Outpatient (CLI) | payer BC, SELFPAY ==
--- OUTSIDE RECORDS SUMMARY | 2024-02-12 08:18 | XMS_ITS | Clinical Summary ---
Author Organization [employer] [facility] [employer] [facility] Address [place], [place] [address] Care Team Providers Care Eyeletter Name Role Phone Unavailable Primary Care Provider [...] HPV THIN PREP Routine 08/01/2023 12:00 PM CARDIOLOGY CLINICAL NURSE SPECIALIST LIPID PANEL Routine 02/06/2022 4:34 PM CDT SCAN-MAMMOGRAPHY REPORT 02/13/2021 12:00 AM CDT from Last 3 Months or Most Recently Relevant to Health Maintenance Results * HPV HIGH RISK (08/01/2023 12:00 PM CARDIOLOGY CLINICAL NURSE SPECIALIST) TYPE 16 Negative Negative 08/06/2023 5:12 PM CARDIOLOGY CLINICAL NURSE SPECIALIST [facility] TYPE 18 Negative Negative 08/06/2023 5:12 PM CARDIOLOGY CLINICAL NURSE SPECIALIST [facility] OTHER HIGH RISK TYPES Negative Negative 08/06/2023 5:12 PM CARDIOLOGY CLINICAL NURSE SPECIALIST [facility] Other (Cervical) 08/01/2023 12:00 PM CARDIOLOGY CLINICAL NURSE SPECIALIST 08/04/2023 5:38 PM CARDIOLOGY CLINICAL NURSE SPECIALIST Narrative [facility] - 08/06/2023 5:12 PM CARDIOLOGY CLINICAL NURSE SPECIALIST HPV types 16, 18, 31, 33, 35, 39, 45, 51, 52, 56, 58, 59, 66 and 68 DNA were undetectable or below the pre-set threshold. Methodology: Work4ce.meas 4800 HPV Test Susanne Price PA-C MICROBIOLOGY [facility] [address] [place] [id number], * LIPID PANEL (02/06/2022 4:34 PM CDT) CHOLESTEROL,TOTAL 142 100 - 199 mg/dL 02/07/2022 10:45 AM [facility] TRIGLYCERIDES 109 <150 mg/dL 02/07/2022 10:45 AM [facility] HDL CHOLESTEROL 44 >40 mg/dL 10:45 AM [facility] NON-HDL CHOLESTEROL 98 <145 mg/dl 02/07/2022 10:45 AM [facility] CHOL/HDL RATIO 3.23 <4.50 02/07/2022 10:45 AM [facility] LDL CHOLESTEROL 76 <=130 mg/dL 02/07/2022 10:45 AM [facility] VLDL CHOLESTEROL 22 <=30 mg/dL 02/07/2022 10:45 AM [facility] PROVIDER ORDERED STATUS RANDOM 02/07/2022 10:45 AM [facility] Blood BLOOD SPECIMEN / Unknown 02/06/2022 4:34 PM CDT 02/07/2022 10:02 AM CDT Erwin Brown MD CHEMISTRY [facility] [address] [place] [address] * SCAN-MAMMOGRAPHY REPORT (02/13/2021 12:00 AM CDT) Anatomical Region Laterality Modality Other Scanner OTHER from Last 3 Months or Most Recently Relevant to Health Maintenance [facility]ri Other 07/14/2000 ATTN SANDRA GARCIA [address] [place] [address]
[2024-02-12 08:28] LABS: Basophils Absolute Auto 0.05 K/uL (0.00-0.30); Basophils Percent Auto 0.6 % (0.0-3.0); Eosinophils Absolute Auto 0.56 K/uL (0.00-0.50); Hematocrit 36.2 % (33.0-51.0); Hemoglobin* 11.8 gm/dL (12.0-16.0); Immature Granulocytes Abs Auto 0.01 K/uL (0.00-0.30); Immature Granulocytes Pct Auto 0.1 %; Lymphocytes Percent Auto 33.7 % (20-44); Mean Corpuscular HGB Conc 33 gm/dL (32-36); Mean Corpuscular Hemoglobin 28 pg (26-34); Mean Corpuscular Volume 85 fL (80-100); Monocytes Absolute Auto 0.43 K/UL (0.00-0.90); Monocytes Percent Auto 5.4 % (0.0-11.0); Neutrophils Absolute Auto 4.26 K/uL (1.7-7.0); Neutrophils Percent Auto 53.2 % (42.0-72.0); Platelet Count* 269 K/uL (140-440); RDW Coefficient of Variation % 13.6 % (11.5-15.5); Red Blood Count 4.24 m/uL (4.00-5.20); Slide Review Reflex No; White Blood Count* 8.01 K/uL (4.50-11.00)
[2024-02-12 08:32] LABS: Appearance Urine Clear (Clear); Bilirubin Urine Negative (Negative); Blood Urine Negative (Negative); Color Urine Yellow (Yellow); Glucose Urine Negative (Negative); Ketones Urine Negative (Negative); Leukocyte Esterase Urine 1+ (Negative); Nitrite Urine Negative (Negative); Protein Urine Negative (Negative); Specific Gravity Urine 1.015 (1.000-1.030); Urobilinogen Urine 0.2 (0.2-1.0); pH Urine 6.5 (5.0-8.5)
[2024-02-12 08:35] LABS: Bacteria Urine Few; RBC Urine 0-2 (0-2); WBC Urine 0-2 (0-5)
[2024-02-12 09:41] LABS: Hemoglobin A1C* 8.6 % (0-5.6)
[2024-02-12 10:09] LABS: Albumin* 4.3 g/dL (3.3-5.0); Chloride* 105 mmol/L (96-114); Potassium* 4.2 mmol/L (3.6-5.1); Sodium* 140 mmol/L (135-149)
[2024-02-12 10:11] LABS: Bilirubin Total* 0.6 mg/dL (0.1-1.5); Creatinine* 0.7 mg/dL (0.5-1.5); Estimated Glomerular Filt Rate 103 ml/min
[2024-02-12 10:12] LABS: Alanine Aminotransferase* 16 U/L (4-35); Alkaline Phosphatase* 86 U/L (40-150); Anion Gap 9 mEq/L (7-15); Aspartate Amino Transferase* 27 U/L (12-35); Blood Urea Nitrogen* 19 mg/dL (7-30); Calcium* 9.8 mg/dL (8.4-10.6); Carbon Dioxide* 26 mmol/L (20-32); Glucose* 157 mg/dL (60-115); Total Protein* 7.9 g/dL (6.0-8.3)
[2024-02-12 10:44] LABS: Creatinine Urine 35.3 mg/dL
[2024-02-12 11:00] LABS: Microalbumin Creatinine Ratio 20 mg/g (0-30); Microalbumin Urine 1 mg/dL
== END 2024-02-12 08:15 | disposition home or self-care (01) ==
PROVIDERS: PCP Family Medicine; Visit Provider Internal Medicine
DX: D64.9 Anemia, unspecified (principal); E11.65 Type 2 diabetes mellitus with hyperglycemia; N39.0 Urinary tract infection, site not specified; B96.20 Unspecified Escherichia coli [E. coli] as the cause of diseases classified elsewhere; Z79.4 Long term (current) use of insulin
CPT/HCPCS: 80053; 81001; 81003; 82043; 82570; 83036; 85025; 87086; 87186

== ENCOUNTER 2024-06-17 15:50 | Outpatient (CLI) | payer BC, SELFPAY ==
--- OUTSIDE RECORDS SUMMARY | 2024-06-17 15:52 | XMS_ITS | Clinical Summary ---
Author Organization [employer] [facility] [employer] [facility] Address [place], [place] [address] Care Team Providers Care Filling Room Operator Name Role Phone Unavailable Primary Care Provider [...] 91 02/12/2017 1:44 PM CDT Temperature 36.5 C (97.7 F) 01/31/2017 3:37 PM CDT Respiratory Rate - - Oxygen Saturation 97% [...] 01/19/2016, Additional history exists COVID-19 vaccine series (2023- season) 2024 Influenza for age 50-64 03/14/2024 05/18/20 13, [...] Procedure Name Priority Date/Time Associated Diagnosis Comments PATIENT CARRIER THIN PREP PAP SCREEN IMAGED Routine 08/01/2023 12:00 PM MANAGER ERP LIPID PANEL Routine 02/06/2022 4:34 PM CDT SCAN-MAMMOGRAPHY REPORT 02/13/2021 12:00 AM CDT from Last 3 Months or Most Recently Relevant to Health Maintenance Results * PATIENT CARRIER THIN PREP PAP SCREEN IMAGED (08/01/2023 12:00 PM MANAGER ERP) Case Report Gynecologic Cytology Report Case: [id number] Authorizing Provider: Susanne Price PA-C Collected: 08/01/2023 1200 Ordering Location: [facility] Received: 08/04/2023 2393 First Screen: Ayde Plasencia Specimen: PATIENT CARRIER ThinPrep Vial Screening, Cervical 08/11/2023 4:11 PM MANAGER ERP [email or web address] INTERPRETATION/ RESULT NEGATIVE FOR INTRAEPITHELIAL LESION OR MALIGNANCY (NIL) (none) 08/11/2023 4:11 PM MANAGER ERP [facility] [employer] [facility] IMEN ADEQUACY Satisfactory for evaluation Endocervical component present 08/11/2023 4:11 PM MANAGER ERP [facility] [employer] [facility] HPV REQUEST HPV and PAP 08/11/2023 4:11 PM MANAGER ERP [facility] [employer] [facility] Date of LMP 08/11/2023 4:11 PM MANAGER ERP [facility] [employer] [facility] Comment:unk Last Pap Date 08/11/2023 4:11 PM MANAGER ERP [facility] [employer] [facility] Comment:unk Last Pap Result 4:11 PM MANAGER ERP [facility] [employer] [facility] Comment:unk Abnormal Pap or Ridott Bx in last 5 years No 08/11/2023 4:11 PM MANAGER ERP [facility] [employer] [facility] Menstrual Status Perimenopausal 08/11/2023 4:11 PM MANAGER ERP [facility] [employer] [facility] Ridott Bx Done Today No 08/11/2023 4:11 PM MANAGER ERP [facility] EN[facility] Additional Information 08/11/2023 4:11 PM MANAGER ERP [facility] [employer] [facility] Comment: [facility]ed at [facility] Central Laboratory - [address], [place] [address] Automated Review Successful 08/11/2023 4:11 PM MANAGER ERP [facility] [employer] [facility] Comment:Specimen processed s uccessfully by automated pipe cleaning machine operator device, ThinPrep Imaging System, [employer]: [employer] ANCILLARY TESTING PATIENT CARRIER HPV Ordered, Please see separate report 08/11/2023 4:11 PM MANAGER ERP [facility] [employer] [facility] Note The pap test is a screening technique, not a diagnostic procedure. It is used primarily to screen for squamous cancers and precursor lesions. Published studies have shown that it is subject to both false negative and false positive results. The pap test should not be used as the sole means to diagnose or exclude pre-malignant and malignant lesions. 08/11/2023 4:11 PM MANAGER ERP [facility] ENTRAL LABORATORY Other (Cervical) 08/01/2023 12:00 PM MANAGER ERP 08/04/2023 5:38 PM MANAGER ERP Susanne Price PA-C PATHOLOGY/CYTOLOGY Performing Organization Address City/[facility]/ZIP Co de Phone Number [facility] [address] [place] [address], * LIPID PANEL (02/06/2022 4:34 PM CDT) CHOLESTEROL,TOTAL 142 100 - 199 mg/dL 02/07/2022 10:[address] [facility] TRIGLYCERIDES 109 <150 mg/dL 02/07/2022 10:[address] [facility] HDL CHOLESTEROL 44 >40 mg/dL 10:[address] [facility] NON-HDL CHOLESTEROL 98 <145 mg/dl 02/07/2022 10:[address] [facility] CHOL/HDL RATIO 3.23 <4.50 02/07/2022 10:[address] [facility] LDL CHOLESTEROL 76 <=130 mg/dL 02/07/2022 10:[address] [facility] VLDL CHOLESTEROL 22 <=30 mg/dL 02/07/2022 10:[address] [facility] PROVIDER ORDERED STATUS RANDOM 02/07/2022 10:[address] [facility] Blood BLOOD SPECIMEN / Unknown 02/06/2022 4:34 PM CDT 02/07/2022 10:02 AM CDT Erwin Brown MD CHEMISTRY Performing Organization Address City[facility]/ZIP Co de Phone Number [facility] [address] [place], [place] [phone] * SCAN-MAMMOGRAPHY REPORT (02/13/2021 12:00 AM CDT) Anatomical Region Laterality Modality Other Scanner OTHER from Last 3 Months or Most Recently Relevant to Health Maintenance [facility] Other 07/14/2000 ATTN SANDRA GARCIA [address] [place] [address]
== END 2024-06-17 15:51 | disposition home or self-care (01) ==
LOC: NFLDREF 15:51
PROVIDERS: PCP Family Medicine; Visit Provider Internal Medicine
DX: E11.40 Type 2 diabetes mellitus with diabetic neuropathy, unspecified (principal); N39.0 Urinary tract infection, site not specified; Z79.4 Long term (current) use of insulin
CPT/HCPCS: 82947; 87086; 87186

== ENCOUNTER 2024-07-11 15:00 | Outpatient (CLI) | payer BC, SELFPAY | END 2024-07-11 15:01 | disposition home or self-care (01) | LOC: NFLDUCREF 15:01 | PROVIDERS: PCP Family Medicine | DX: R68.83 Chills (without fever) (principal); R82.90 Unspecified abnormal findings in urine | CPT/HCPCS: 87086; 87186 ==

== ENCOUNTER 2024-07-12 19:54 | Inpatient (IN) | payer BC, SELFPAY ==
[2024-07-12] VITALS (10 sets, daily range): BP systolic 156; BP diastolic 77; PULSE 99–121; RESP 24; TEMP 38; O2SAT 92–97; BMI 24.7
--- NOTE | 2024-07-12 20:22 | ED_ITS ---
HPI - General Adult General Time Seen by Provider: 20:17 <Maryam Franklin MD - Last Filed: 07/13/24 00:08> Date Seen: 07/12/24 <Maryam Franklin MD - Last Filed: 07/13/24 00:08> Chief complaint: Headache/Migraine <Maryam Franklin MD - Last Filed: 07/13/24 00:08> Stated complaint: Check for UTI <Maryam Franklin MD - Last Filed: 07/13/24 00:08> Time Seen by Provider: 07/12/24 20:17 <Maryam Franklin MD - Last Filed: 07/13/24 00:08> Source: patient, RN notes reviewed, old records reviewed and manager consumer <Maryam Franklin MD - Last Filed: 07/13/24 00:08> Mode of arrival: ambulatory <Maryam Franklin MD - Last Filed: 07/13/24 00:08> Limitations: no limitations <Maryam Franklin MD - Last Filed: 07/13/24 00:08> History of Present Illness HPI narrative: This 54-year-old female is coming in from home with ongoing fevers, body aches. She has right back pain, low back pain, is having headaches now. She was in urgent care yesterday with symptoms that seem to be consistent with right pyelonephritis. She was started on ciprofloxacin 500 mg and has taken 3 doses. She is still having headache and chills. Her symptoms have not improved. She is diabetic. She has had no nausea vomiting but diminished appetite. Denies any urinary symptoms. She states this will be the 3rd visit for urinary issues recently. No abdominal pain at this time. She was noting chills, back pain and urinary frequency of small amounts. Her urinalysis was nitrite positive. She has had E coli positive urine culture on 06/17/2024. Urine culture from yesterday is not back. Her white blood count was elevated at 12,620. Her creatinine was 0.6 yesterday glucose was 313. Most recent hemoglobin A1c on June 17 was 9.6%. The sensitivities from the E coli from June 17 showed ampicillin resistance, Unasyn intermediate, ciprofloxacin resistant, gentamicin resistant, levofloxacin intermediate, tobramycin intermediate, Bactrim resistant. She has had E coli urinary tract infections on June 17, February 11 of January 11, January 11 with E coli bacteremia as well. <Maryam Franklin MD - Last Filed: 07/13/24 00:08> Related Data Home medications: Home Medications ?Medication ?Instructions ?Recorded ?Confirmed amlodipine 10 mg tablet 10 mg PO DAILY 07/13/24 07/13/24 ciprofloxacin HCl 500 mg tablet 500 mg PO BID 07/13/24 07/13/24 (Cipro) glyburide 5 mg tablet 5 mg PO DAILY 07/13/24 07/13/24 Previous Rx's ?Medication ?Instructions ?Recorded insulin NPH-regular 70-30 U-100 45 unit (0.45 mL) subcut BID #60 mL 02/17/24 insulin 100 unit/mL subcutaneous pen (Novolin 70-30 FlexPen U-100 Insulin) aspirin 81 mg tablet,delayed 81 mg PO QPM #90 tabs 06/17/24 release blood-glucose meter (Accu-Chek #1 ea 06/17/24 Guide Glucose Meter) ergocalciferol (vitamin D2) 1,250 1,250 mcg PO QWEEK #13 caps 06/17/24 mcg (50,000 unit) capsule gabapentin 300 mg capsule 600 mg (2 x 300 mg) PO QPM #180 06/17/24 caps lancets (Accu-Chek Softclix #100 ea 06/17/24 Lancets) lisinopril 40 mg tablet 40 mg PO QDAY #90 tabs 06/17/24 metformin 1,000 mg tablet 1,000 mg PO BIDWMEAL #180 tabs 06/17/24 naproxen 500 mg tablet 500 mg PO BID #180 tabs 06/17/24 pen needle, diabetic 31 gauge x #100 ea 06/17/2411/26 (CareTouch Pen Needle) blood sugar diagnostic (Blood #360 ea 06/25/24 Glucose Test strips) blood pressure monitor #1 ea 06/28/24 <Maryam Franklin MD - Last Filed: 07/13/24 00:08> Allergies/adverse reactions: Allergies Allergy/AdvReac Type Severity Reaction Status Date / Time No Known Drug Allergies Allergy Verified 07/12/24 20:08 <Maryam Franklin MD - Last Filed: 07/13/24 00:08> Review of Systems Status of ROS: Reports: 6 or more systems reviewed and unremarkable except as noted in History and below <Maryam Franklin MD - Last Filed: 07/13/24 00:08> PFSH [facility] Medical History: Medical History UTI (urinary tract infection) ?N39.0 - Urinary tract infection, site not specified (ICD-10) Anemia ?D64.9 - Anemia, unspecified (ICD-10) COVID-19 ?U07.1 - COVID-19 (ICD-10) Mixed hyperlipidemia ?E78.2 - Mixed hyperlipidemia (ICD-10) Type 2 diabetes mellitus, with long-term current use of insulin ?E11.9 - Type 2 diabetes mellitus without complications (ICD-10) ?Z79.4 - MCFP (current) use of insulin (ICD-10) Primary hypertension ?I10 - Essential (primary) hypertension (ICD-10) [place] grade 2 cystocele ?N81.10 - Cystocele, unspecified (ICD-10) Depression ?F32.A - Depression, unspecified (ICD-10) Diabetic neuropathy ?E11.40 - Type 2 diabetes mellitus with diabetic neuropathy, unspecified (ICD-10) Vitamin D deficiency ?E55.9 - Vitamin D deficiency, unspecified (ICD-10) <Maryam Franklin MD - Last Filed: 07/13/24 00:08> Surgical History: Surgical History History of vaginal delivery History of 2 sections ?Z98.891 - History of uterine scar from previous surgery (ICD-10) History of tubal ligation (2006) ?Z98.51 - Tubal ligation status (ICD-10) Hx laparoscopic cholecystectomy (04/25/05) ?Z90.49 - Acquired absence of other specified parts of digestive tract (ICD- 10) <Maryam Franklin MD - Last Filed: 07/13/24 00:08> Family History: Family History Father Liver disease Alcohol dependence Brother Diabetes Mother Diabetes Son Family history of testicular cancer, Onset Age: 26 Other No family history of breast cancer No family history of colorectal cancer <Maryam Franklin MD - Last Filed: 07/13/24 00:08> Social History: Social History Narrative: , three kids, 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 [employer], nonsmoker, no EtOH Smoking Status: Never smoker Do you use any of these nicotine containing products: None Second hand tobacco smoke exposure: No How often do you have a drink containing alcohol: never AUDIT-C Alcohol total score: 0 Non-prescribed substance use: denies use service: No <Maryam Franklin MD - Last Filed: 07/13/24 00:08> Exam Const: Vital Signs, click to edit/add: Vital Signs - 24 hr 07/12/24 20:08 07/12/24 21:42 07/12/24 21:45 Temperature 100.4 F H Pulse Rate 108 H 107 H Pulse Rate [Pulse Oximeter] 121 H Respiratory Rate 24 Blood Pressure [Ri ght Upper Arm] 156/77 H Pulse Oximetry 97 94 94 Oxygen Delivery Me thod Room Air 07/12/24 22:00 07/12/24 22:20 07/12/24 22:51 Temperature Pulse Rate 105 H 110 H 106 H Pulse Rate [Pulse Oximeter] Respiratory Rate Blood Pressure [Ri ght Upper Arm] Pulse Oximetry 95 94 92 Oxygen Delivery Me thod 07/12/24 23:00 07/12/24 23:15 07/12/24 23:30 Temperature Pulse Rate 108 H 102 H 101 H Pulse Rate [Pulse Oximeter] Respiratory Rate Blood Pressure [Ri ght Upper Arm] Pulse Oximetry 93 92 92 Oxygen Delivery Me thod 07/12/24 23:45 07/13/24 00:00 07/13/24 00:15 Temperature Pulse Rate 99 101 H 99 Pulse Rate [Pulse Oximeter] Respiratory Rate Blood Pressure [Ri ght Upper Arm] Pulse Oximetry 92 94 93 Oxygen Delivery Me thod 07/13/24 00:30 07/13/24 00:36 07/13/24 00:45 Temperature 98.6 F Pulse Rate 95 103 H Pulse Rate [Pulse Oximeter] Respiratory Rate Blood Pressure [Ri ght Upper Arm] Pulse Oximetry 92 91 Oxygen Delivery Me thod 07/13/24 01:00 Temperature Pulse Rate 100 Pulse Rate [Pulse Oximeter] Respiratory Rate Blood Pressure [Ri ght Upper Arm] Pulse Oximetry 93 Oxygen Delivery Me thod This 54-year-old female is alert, interactive, seen in exam room for, looks like she does not feel well. Up she is able to speak in complete sentences, sclera clear. Oropharynx mildly dry. Neck supple, no adenopathy. Lungs are clear, good air entry, no wheezing crackles. Definite right CVA tenderness. CV is fast but regular, no murmur. Abdomen is soft, no rebound or guarding, no organomegaly. When I go over her far right lateral chest wall just below the ribs and by the kidney, she does state it is tender there. No suprapubic tende rness. She has no lower extremity edema. <Maryam Franklin MD - Last Filed: 07/13/24 00:08> Vital Signs, click to edit/add: Vital Signs - 24 hr 07/12/24 20:08 07/12/24 21:42 07/12/24 21:45 Temperature 100.4 F H Pulse Rate 108 H 107 H Pulse Rate [Pulse Oximeter] 121 H Respiratory Rate 24 Blood Pressure [Ri ght Upper Arm] 156/77 H Pulse Oximetry 97 94 94 Oxygen Delivery Me thod Room Air 07/12/24 22:00 07/12/24 22:20 07/12/24 22:51 Temperature Pulse Rate 105 H 110 H 106 H Pulse Rate [Pulse Oximeter] Respiratory Rate Blood Pressure [Ri ght Upper Arm] Pulse Oximetry 95 94 92 Oxygen Delivery Me thod 07/12/24 23:00 07/12/24 23:15 07/12/24 23:30 Temperature Pulse Rate 108 H 102 H 101 H Pulse Rate [Pulse Oximeter] Respiratory Rate Blood Pressure [Ri ght Upper Arm] Pulse Oximetry 93 92 92 Oxygen Delivery Me thod 07/12/24 23:45 07/13/24 00:00 12/31/24 00:15 Temperature Pulse Rate 99 101 H 99 Pulse Rate [Pulse Oximeter] Respiratory Rate Blood Pressure [Ri ght Upper Arm] Pulse Oximetry 92 94 93 Oxygen Delivery Me thod 07/13/24 00:30 07/13/24 00:36 07/13/24 00:45 Temperature 98.6 F Pulse Rate 95 103 H Pulse Rate [Pulse Oximeter] Respiratory Rate Blood Pressure [Ri ght Upper Arm] Pulse Oximetry 92 91 Oxygen Delivery Me thod 07/13/24 01:00 Temperature Pulse Rate 100 Pulse Rate [Pulse Oximeter] Respiratory Rate Blood Pressure [Ri ght Upper Arm] Pulse Oximetry 93 Oxygen Delivery Me thod <Kulwant Ghotra DO - Last Filed: 07/13/24 15:47> Documenting provider has reviewed patient's vital signs: yes <Maryam Franklin MD - Last Filed: 07/13/24 00:08> Course Course ED Course: This patient certainly seems clinically to have ongoing pyelonephritis. Will get CT imaging. Her vitals show her to be febrile and tachycardic, blood pressure is maintaining. Patient may meet criteria for sepsis based on outcomes of labs. Will get a blood culture in her. She is on Cipro and her last sensitivity showed resistance to this. Likely switch to Rocephin which was sensitive. She will likely need hospitalization. Will start with 1 L of IV fluids, some IV Toradol for pain management. <Maryam Franklin MD - Last Filed: 07/13/24 00:08> Reevaluation(s) Time of Reevaluation #1: 22:17 <Maryam Franklin MD - Last Filed: 07/13/24 00:08> Reevaluation #1: Patient is glucose is up to 540. Have ordered a 2 L of fluids, 10 units of regular insulin. Awaiting CT to be done. Did add on a venous blood gas, will see if lab can run it as we had a lactate. It will be ordering 2 g IV Rocephin. <Maryam Franklin MD - Last Filed: 07/13/24 00:08> Time of Reevaluation #2: 23:30 <Maryam Franklin MD - Last Filed: 07/13/24 00:08> Reevaluation #2: Patient has had her glucose rechecked, down to 363. Have ordered her usual medications including her 70/30 insulin. She does meet criteria for sepsis. Patient will be a border in the ER. There are no local or currently regional Hospital systems with bed capacity. Our hospital is currently full. Patient needs ongoing monitoring and is not appropriate for discharge. <Maryam Franklin MD - Last Filed: 07/13/24 00:08> Time of Reevaluation #3: 00:06 <Maryam Franklin MD - Last Filed: 07/13/24 00:08> Reevaluation #3: Patient is advised that her CT is consistent with pyelonephritis. We have discussed that the hospital is full, there are no beds elsewhere. She will board in the ER until we can figure out disposition for her. We will see how she is doing in the morning, a.m. labs are ordered. She is signed out to the overnight physician in the ED. at this time, she had been given Tylenol, desires nothing else for pain at this time. She is comfortable. Pulse is now just below 100 at 99. Her blood pressure is still mildly elevated, certainly not low. <Maryam Franklin MD - Last Filed: 07/13/24 00:08> Vital Signs Vital signs: Initial Vital Signs Temperature 100.4 F H 07/12/24 20:08 Temperature Source Temporal Artery Scan 07/12/24 20:08 Pulse Rate 121 H 07/12/24 20:08 Respiratory Rate 24 07/12/24 20:08 Blood Pressure 156/77 H 07/12/24 20:08 Blood Pressure Mean 103 07/12/24 20:08 Blood Pressure Position Sitting 07/12/24 20:08 Pulse Oximetry 97 07/12/24 20:08 Oxygen Delivery Method Room Air 07/12/24 20:08 Vital Signs Temperature 100.4 F H 07/12/24 20:08 Pulse Rate 121 H 07/12/24 20:08 Respiratory Rate 24 07/12/24 20:08 Blood Pressure 156/77 H 07/12/24 20:08 Pulse Oximetry 97 07/12/24 20:08 Oxygen Delivery Method Room Air 07/12/24 20:08 Temperature 98.6 F 07/13/24 00:36 Pulse Rate 100 07/13/24 01:00 Respiratory Rate 24 07/12/24 20:08 Blood Pressure 156/77 H 07/12/24 20:08 Pulse Oximetry 93 07/13/24 01:00 Oxygen Delivery Method Room Air 07/12/24 20:08 <Maryam Franklin MD - Last Filed: 07/13/24 00:08> Initial Vital Signs Temperature 100.4 F H 07/12/24 20:08 Temperature Source Temporal Artery Scan 07/12/24 20:08 Pulse Rate 121 H 07/12/24 20:08 Respiratory Rate 24 07/12/24 20:08 Blood Pressure 156/77 H 07/12/24 20:08 Blood Pressure Mean 103 07/12/24 20:08 Blood Pressure Position Sitting 07/12/24 20:08 Pulse Oximetry 97 07/12/24 20:08 Oxygen Delivery Method Room Air 07/12/24 20:08 Vital Signs Temperature 100.4 F H 07/12/24 20:08 Pulse Rate 121 H 07/12/24 20:08 Respiratory Rate 24 07/12/24 20:08 Blood Pressure 156/77 H 07/12/24 20:08 Pulse Oximetry 97 07/12/24 20:08 Oxygen Delivery Method Room Air 07/12/24 20:08 Temperature 98.6 F 07/13/24 00:36 Pulse Rate 100 07/13/24 01:00 Respiratory Rate 24 07/12/24 20:08 Blood Pressure 156/77 H 07/12/24 20:08 Pulse Oximetry 93 07/13/24 01:00 Oxygen Delivery Method Room Air 07/12/24 20:08 <Kulwant Ghotra DO - Last Filed: 07/13/24 15:47> Medications Administered Medications: Generic Name Dose Route Start Last Admin Trade Name Freq PRN Reason Stop Dose Admin Acetaminophen 1,000 mg 07/12/24 23:04 07/13/24 14:13 Acetaminophen 500 Mg Tablet PO 1,000 mg Q6H PRN Administration fever, pain Amlodipine Besylate 10 mg 07/13/24 09:00 07/13/24 09:04 Amlodipine 10 Mg Tablet PO 10 mg DAILY ENRIQUE Administration Aspirin 81 mg 07/13/24 09:00 07/13/24 09:04 Aspirin 81 Mg Tablet Ec PO 81 mg DAILY ENRIQUE Administration Glyburide 5 mg 07/13/24 09:00 07/13/24 09:04 Glyburide 5 Mg Tablet PO 5 mg DAILY ENRIQUE Administration Potassium Chloride/Sodium Chloride 1,000 mls @ 100 mls/hr 07/12/24 23:03 07/13/24 10:38 0.9 % Sodium Ch + Kcl 20 Meq/L IV 100 mls/hr .Q10H ENRIQUE Administration Insulin Aspart 45 unit 07/13/24 09:00 07/13/24 09:42 Insulin Prot/Asp (Novolog 70/30) 100 Unit/Ml SUBCUT 45 unit BID ENRIQUE Administration Lisinopril 10 mg 07/13/24 09:00 07/13/24 09:04 Lisinopril 10 Mg Tablet PO 10 mg DAILY ENRIQUE Administration Metformin HCl 1,000 mg 07/13/24 08:00 07/13/24 09:04 Metformin 1,000 Mg Tablet PO 1,000 mg BIDWM ENRIQUE Administration Discontinued Medications Generic Name Dose Route Start Last Admin Trade Name Freq PRN Reason Stop Dose Admin Sodium Chloride 1,000 mls @ 500 mls/hr 07/12/24 20:40 07/12/24 22:46 0.9 % Sodium Chloride 1000 Ml IV 07/12/24 22:39 Infused .Q2H ENRIQUE Infusion Ceftriaxone Sodium 2 gm/ 100 mls @ 200 mls/hr 07/12/24 21:04 07/12/24 22:02 Sodium Chloride IVPB 07/12/24 21:05 Infused ONCE ONE Infusion Sodium Chloride 1,000 mls @ 500 mls/hr 07/12/24 22:17 07/12/24 23:46 0.9 % Sodium Chloride 1000 Ml IV 07/13/24 00:16 Infused .Q2H ENRIQUE Infusion Insulin Human Regular 10 unit 07/12/24 22:17 07/12/24 22:46 Insulin Regular, Human 100 Unit/Ml Vial IVP 07/12/24 22:18 10 unit ONCE ONE Administration Ketorolac Tromethamine 15 mg 07/12/24 20:37 07/12/24 21:26 Ketorolac 15 Mg/Ml Inj IVP 07/12/24 20:38 15 mg ONCE ONE Administration Ketorolac Tromethamine 15 mg 07/13/24 15:17 07/13/24 15:34 Ketorolac 15 Mg/Ml Inj IVP 07/13/24 15:18 15 mg ONCE ONE Administration <Maryam Franklin MD - Last Filed: 07/13/24 00:08> Generic Name Dose Route Start Last Admin Trade Name Meagan PRN Reason Stop Dose Admin Acetaminophen 1,000 mg 07/12/24 23:04 07/13/24 14:13 Acetaminophen 500 Mg Tablet PO 1,000 mg Q6H PRN Administration fever, pain Amlodipine Besylate 10 mg 07/13/24 09:00 07/13/24 09:04 Amlodipine 10 Mg Tablet PO 10 mg DAILY ENRIQUE Administration Aspirin 81 mg 07/13/24 09:00 07/13/24 09:04 Aspirin 81 Mg Tablet Ec PO 81 mg DAILY ENRIQUE Administration Glyburide 5 mg 07/13/24 09:00 07/13/24 09:04 Glyburide 5 Mg Tablet PO 5 mg DAILY ENRIQUE Administration Potassium Chloride/Sodium Chloride 1,000 mls @ 100 mls/hr 07/12/24 23:03 07/13/24 10:38 0.9 % Sodium Ch + Kcl 20 Meq/L IV 100 mls/hr .Q10H ENRIQUE Administration Insulin Aspart 45 unit 07/13/24 09:00 07/13/24 09:42 Insulin Prot/Asp (Novolog 70/30) 100 Unit/Ml SUBCUT 45 unit BID ENRIQUE Administration Lisinopril 10 mg 07/13/24 09:00 07/13/24 09:04 Lisinopril 10 Mg Tablet PO 10 mg DAILY ENRIQUE Administration Metformin HCl 1,000 mg 07/13/24 08:00 07/13/24 09:04 Metformin 1,000 Mg Tablet PO 1,000 mg BIDWM ENRIQUE Administration Discontinued Medications Generic Name Dose Route Start Last Admin Trade Name Andrewq PRN Reason Stop Dose Admin Sodium Chloride 1,000 mls @ 500 mls/hr 07/12/24 20:40 07/12/24 22:46 0.9 % Sodium Chloride 1000 Ml IV 07/12/24 22:39 Infused .Q2H ENRIQUE Infusion Ceftriaxone Sodium 2 gm/ 100 mls @ 200 mls/hr 07/12/24 21:04 07/12/24 22:02 Sodium Chloride IVPB 07/12/24 21:05 Infused ONCE ONE Infusion Sodium Chloride 1,000 mls @ 500 mls/hr 07/12/24 22:17 07/12/24 23:46 0.9 % Sodium Chloride 1000 Ml IV 07/13/24 00:16 Infused .Q2H ENRIQUE Infusion Insulin Human Regular 10 unit 07/12/24 22:17 07/12/24 22:46 Insulin Regular, Human 100 Unit/Ml Vial IVP 07/12/24 22:18 10 unit ONCE ONE Administration Ketorolac Tromethamine 15 mg 07/12/24 20:37 07/12/24 21:26 Ketorolac 15 Mg/Ml Inj IVP 07/12/24 20:38 15 mg ONCE ONE Administration Ketorolac Tromethamine 15 mg 07/13/24 15:17 07/13/24 15:34 Ketorolac 15 Mg/Ml Inj IVP 07/13/24 15:18 15 mg ONCE ONE Administration <Kulwant Ghotra DO - Last Filed: 07/13/24 15:47> Medical Decision Making MDM Narrative Medical decision making narrative: Patient was signed out to me pending available beds for admission. She does have positive blood cultures. This is likely E coli considering her pyelonephritis is E coli. She is currently receiving Rocephin. I spoke to the admitting hospitalist who accepted her for admission. Did ask for repeat blood cultures. These were ordered. I also gave the patient some Toradol for her returning back pain peer <Kulwant Ghotra DO - Last Filed: 07/13/24 15:47> Lab Data Labs: Lab Results 07/12/24 07/12/24 07/12/24 Range/Units 21:10 22:16 23:04 WBC 12.15 H (4.50-11.00) K/uL RBC 4.03 (4.00-5.20) m/uL Hgb 11.3 L (12.0-16.0) gm/dL Hct 33.7 (33.0-51.0) % MCV 84 (80-100) fL MCH 28 (26-34) pg MCHC 34 (32-36) gm/dL RDW Coeff of [place] 13.8 (11.5-15.5) % Plt Count 174 (140-440) K/uL Neut % (Auto) 90.5 H (42.0-72.0) % Lymph % (Auto) 4.0 L (20-44) % [place] % (Auto) 4.6 (0.0-11.0) % Eos % (Auto) 0.1 (0.0-7.0) % Baso % (Auto) 0.1 (0.0-3.0) % Neut # (Auto) 11.00 H (1.7-7.0) K/uL Lymph # (Auto) 0.50 L (0.90-2.90) K/uL [place] # (Auto) 0.60 (0.00-0.90) K/UL Eos # (Auto) 0.00 (0.00-0.50) K/uL Baso # (Auto) 0.00 (0.00-0.30) K/uL Abs Immat Gran (auto) 0.10 (0.00-0.30) K/uL Imm/Tot Granulo (auto) 0.7 % VBG pH 7.437 H (7.32-7.43) VBG pCO2 33 L (40-50) mmHG VBG pO2 51.1 H (25-47) mmHG VBG HCO3 22 (21-28) mmol/L Sodium 131 L (135-149) mmol/L Potassium 4.2 (3.6-5.1) mmol/L Chloride 101 (96-114) mmol/L Carbon Dioxide 21 (20-32) mmol/L Anion Gap 9 (7-15) mEq/L BUN 22 (7-30) mg/dL Creatinine 0.9 (0.5-1.5) mg/dL Estimated Creat Clear 55.86 Estimated GFR 76 ml/min Glucose 540 H* (60-115) mg/dL Lactate 1.8 (0.5-1.9) mmol/L Calcium 8.8 (8.4-10.6) mg/dL Total Bilirubin 1.1 (0.1-1.5) mg/dL AST 65 H (12-35) U/L ALT 49 H (4-35) U/L Alkaline Phosphatase 284 H (40-150) U/L Troponin I < 0.01 L (0.01-0.04) ng/mL C-Reactive Protein 33.5 H (0.5-1.0) mg/dL Total Protein 7.0 (6.0-8.3) g/dL Albumin 3.5 (3.3-5.0) g/dL Procalcitonin 8.22 H (<0.50) ng/mL SARS-CoV-2 (PCR) Negative SARS-CoV-2 (Negative) Influenza Type A (PCR) Negative PCR FLU A (Negative) Influenza Type B (PCR) Negative PCR FLU B (Negative) RSV (PCR) Negative PCR RSV (Negative) Lab Acknowledgement Test Added POC Glucose 363 H* (60-115) mg/dl 07/13/24 Range/Units 07:16 WBC 12.51 H (4.50-11.00) K/uL RBC 3.85 L (4.00-5.20) m/uL Hgb 10.8 L (12.0-16.0) gm/dL Hct 32.4 L (33.0-51.0) % MCV 84 (80-100) fL MCH 28 (26-34) pg MCHC 33 (32-36) gm/dL RDW Coeff of [place] 14.3 (11.5-15.5) % Plt Count 169 (140-440) K/uL Neut % (Auto) 83.3 H (42.0-72.0) % Lymph % (Auto) 9.5 L (20-44) % [place] % (Auto) 6.2 (0.0-11.0) % Eos % (Auto) 0.2 (0.0-7.0) % Baso % (Auto) 0.2 (0.0-3.0) % Neut # (Auto) 10.40 H (1.7-7.0) K/uL Lymph # (Auto) 1.20 (0.90-2.90) K/uL [place] # (Auto) 0.80 (0.00-0.90) K/UL Eos # (Auto) 0.00 (0.00-0.50) K/uL Baso # (Auto) 0.00 (0.00-0.30) K/uL Abs Immat Gran (auto) 0.10 (0.00-0.30) K/uL Imm/Tot Granulo (auto) 0.6 % VBG pH (7.32-7.43) VBG pCO2 (40-50) mmHG VBG pO2 (25-47) mmHG VBG HCO3 (21-28) mmol/L Sodium 136 (135-149) mmol/L Potassium 4.0 (3.6-5.1) mmol/L Chloride 109 (96-114) mmol/L Carbon Dioxide 19 L (20-32) mmol/L Anion Gap 8 (7-15) mEq/L BUN 17 (7-30) mg/dL Creatinine 0.6 (0.5-1.5) mg/dL Estimated Creat Clear 83.79 Estimated GFR 106 ml/min Glucose 309 H (60-115) mg/dL Lactate (0.5-1.9) mmol/L Calcium 8.2 L (8.4-10.6) mg/dL Total Bilirubin (0.1-1.5) mg/dL AST (12-35) U/L ALT (4-35) U/L Alkaline Phosphatase (40-150) U/L Troponin I (0.01-0.04) ng/mL C-Reactive Protein (0.5-1.0) mg/dL Total Protein (6.0-8.3) g/dL Albumin (3.3-5.0) g/dL Procalcitonin (<0.50) ng/mL SARS-CoV-2 (PCR) (Negative) Influenza Type A (PCR) (Negative) Influenza Type B (PCR) (Negative) RSV (PCR) (Negative) Lab Acknowledgement POC Glucose (60-115) mg/dl <Maryam Franklin MD - Last Filed: 07/13/24 00:08> Lab Results 07/12/24 07/12/24 07/12/24 Range/Units 21:10 22:16 23:04 WBC 12.15 H (4.50-11.00) K/uL RBC 4.03 (4.00-5.20) m/uL Hgb 11.3 L (12.0-16.0) gm/dL Hct 33.7 (33.0-51.0) % MCV 84 (80-100) fL MCH 28 (26-34) pg MCHC 34 (32-36) gm/dL RDW Coeff of [place] 13.8 (11.5-15.5) % Plt Count 174 (140-440) K/uL Neut % (Auto) 90.5 H (42.0-72.0) % Lymph % (Auto) 4.0 L (20-44) % [place] % (Auto) 4.6 (0.0-11.0) % Eos % (Auto) 0.1 (0.0-7.0) % Baso % (Auto) 0.1 (0.0-3.0) % Neut # (Auto) 11.00 H (1.7-7.0) K/uL Lymph # (Auto) 0.50 L (0.90-2.90) K/uL [place] # (Auto) 0.60 (0.00-0.90) K/UL Eos # (Auto) 0.00 (0.00-0.50) K/uL Baso # (Auto) 0.00 (0.00-0.30) K/uL Abs Immat Gran (auto) 0.10 (0.00-0.30) K/uL Imm/Tot Granulo (auto) 0.7 % VBG pH 7.437 H (7.32-7.43) VBG pCO2 33 L (40-50) mmHG VBG pO2 51.1 H (25-47) mmHG VBG HCO3 22 (21-28) mmol/L Sodium 131 L (135-149) mmol/L Potassium 4.2 (3.6-5.1) mmol/L Chloride 101 (96-114) mmol/L Carbon Dioxide 21 (20-32) mmol/L Anion Gap 9 (7-15) mEq/L BUN 22 (7-30) mg/dL Creatinine 0.9 (0.5-1.5) mg/dL Estimated Creat Clear 55.86 Estimated GFR 76 ml/min Glucose 540 H* (60-115) mg/dL Lactate 1.8 (0.5-1.9) mmol/L Calcium 8.8 (8.4-10.6) mg/dL Total Bilirubin 1.1 (0.1-1.5) mg/dL AST 65 H (12-35) U/L ALT 49 H (4-35) U/L Alkaline Phosphatase 284 H (40-150) U/L Troponin I < 0.01 L (0.01-0.04) ng/mL C-Reactive Protein 33.5 H (0.5-1.0) mg/dL Total Protein 7.0 (6.0-8.3) g/dL Albumin 3.5 (3.3-5.0) g/dL Procalcitonin 8.22 H (<0.50) ng/mL SARS-CoV-2 (PCR) Negative SARS-CoV-2 (Negative) Influenza Type A (PCR) Negative PCR FLU A (Negative) Influenza Type B (PCR) Negative PCR FLU B (Negative) RSV (PCR) Negative PCR RSV (Negative) Lab Acknowledgement Test Added POC Glucose 363 H* (60-115) mg/dl 07/13/24 Range/Units 07:16 WBC 12.51 H (4.50-11.00) K/uL RBC 3.85 L (4.00-5.20) m/uL Hgb 10.8 L (12.0-16.0) gm/dL Hct 32.4 L (33.0-51.0) % MCV 84 (80-100) fL MCH 28 (26-34) pg MCHC 33 (32-36) gm/dL RDW Coeff of [place] 14.3 (11.5-15.5) % Plt Count 169 (140-440) K/uL Neut % (Auto) 83.3 H (42.0-72.0) % Lymph % (Auto) 9.5 L (20-44) % [place] % (Auto) 6.2 (0.0-11.0) % Eos % (Auto) 0.2 (0.0-7.0) % Baso % (Auto) 0.2 (0.0-3.0) % Neut # (Auto) 10.40 H (1.7-7.0) K/uL Lymph # (Auto) 1.20 (0.90-2.90) K/uL [place] # (Auto) 0.80 (0.00-0.90) K/UL Eos # (Auto) 0.00 (0.00-0.50) K/uL Baso # (Auto) 0.00 (0.00-0.30) K/uL Abs Immat Gran (auto) 0.10 (0.00-0.30) K/uL Imm/Tot Granulo (auto) 0.6 % VBG pH (7.32-7.43) VBG pCO2 (40-50) mmHG VBG pO2 (25-47) mmHG VBG HCO3 (21-28) mmol/L Sodium 136 (135-149) mmol/L Potassium 4.0 (3.6-5.1) mmol/L Chloride 109 (96-114) mmol/L Carbon Dioxide 19 L (20-32) mmol/L Anion Gap 8 (7-15) mEq/L BUN 17 (7-30) mg/dL Creatinine 0.6 (0.5-1.5) mg/dL Estimated Creat Clear 83.79 Estimated GFR 106 ml/min Glucose 309 H (60-115) mg/dL Lactate (0.5-1.9) mmol/L Calcium 8.2 L (8.4-10.6) mg/dL Total Bilirubin (0.1-1.5) mg/dL AST (12-35) U/L ALT (4-35) U/L Alkaline Phosphatase (40-150) U/L Troponin I (0.01-0.04) ng/mL C-Reactive Protein (0.5-1.0) mg/dL Total Protein (6.0-8.3) g/dL Albumin (3.3-5.0) g/dL Procalcitonin (<0.50) ng/mL SARS-CoV-2 (PCR) (Negative) Influenza Type A (PCR) (Negative) Influenza Type B (PCR) (Negative) RSV (PCR) (Negative) Lab Acknowledgement POC Glucose (60-115) mg/dl <Kulwant Ghotra DO - Last Filed: 07/13/24 15:47> Imaging Data CT scan - abdomen: Attestation: I have reviewed the pertinent imaging results. <Maryam Bass MD - Last Filed: 07/13/24 00:08> My impression: Do appreciate some mild inflammatory changes around the right kidney, wait radiology over read. <Maryam Franklin MD - Last Filed: 07/13/24 00:08> Radiologist's impression: Patient: MALDONADO SOLOMON Facility:?[facility] Patient ID:?[id number] Site Patient ID:?[id number]. Site :?[id number] Study:?CT-Abdomen/Pelvis w/iv-07/12/2024 10:52:28 PM Ordering Physician:Lena Francisco Final Report: Indication: Fever, UTI, right flank pain Technique: CT through the abdomen and pelvis following 66 mL Isovue 370 IV contrast Comparison: None Findings: Lower chest: Bibasilar atelectasis and/or scarring. Hepatobiliary: No significant parenchymal abnormality is appreciated. Cholecystectomy. Spleen: Unremarkable. Pancreas: No acute abnormality appreciated. Adrenal glands: No acute abnormality appreciated. Kidneys: Swwer-tbmmqqo-ocjx-left patchy parenchymal hypoenhancement within the kidneys. No hydronephrosis. No visualized calculi. Bowel: No obstruction. No focal perienteric or pericolonic stranding is appreciated. The appendix is visualized and appears unremarkable. Vascular: Atherosclerosis. Lymph nodes: No gross lymphadenopathy. Peritoneum: No free air. No free fluid. : Tubal ligation clips. Soft tissues: No acute abnormality appreciated. Fat containing umbilical hernia. Bones: No acute fracture. No lytic or blastic lesion. Mild spondylosis. Impression: Zqjpq-tklmetz-evxw-left patchy parenchymal hypoenhancement noted in the kidneys, no other acute abnormality appreciated. Findings are concerning for pyelonephritis given reported history. Please note that all CT scans at this facility use dose modulation, iterative reconstruction, and/or weight-based dosing when appropriate to reduce radiation dose to as low as reasonably achievable. Dictated by Nick Conde MD @ 07/12/2024 11:37:40 PM (Electronic Signature) <Maryam Franklin MD - Last Filed: 07/13/24 00:08> ECG Data Attestation: I personally reviewed and interpreted this ECG as follows: (Sinus tachycardia, 107 beats per minute. No evidence of any ischemia. QT corrected 435 milliseconds.) <Maryam Franklin MD - Last Filed: 07/13/24 00:08> Prior ECG tracings: not available for review <Maryam Franklin MD - Last Filed: 07/13/24 00:08> Discharge Plan Discharge Clinical Impression: Pyelonephritis Sepsis Qualifiers: Sepsis type: sepsis due to unspecified organism Sepsis acute organ dysfunction status: without acute organ dysfunction Qualified Code(s): A41.9 - Sepsis, unspecified organism Diabetes mellitus with hyperglycemia Qualifiers: Diabetes mellitus type: type 2 Diabetes mellitus fdc insulin use: with intermediate school teacher use Qualified Code(s): E11.65 - Type 2 diabetes mellitus with hy perglycemia <Maryam Franklin MD - Last Filed: 07/13/24 00:08> Patient Disposition: Admitted As Observation <Maryam Franklin MD - Last Filed: 07/13/24 00:08> Prescriptions: No Action aspirin 81 mg tablet,delayed release (DR/EC) 81 mg PO QPM Qty: 90 0RF ergocalciferol (vitamin D2) 1,250 mcg (50,000 unit) capsule 1,250 mcg PO QWEEK Qty: 13 3RF gabapentin 300 mg capsule 600 mg PO QPM Qty: 180 1RF lisinopril 40 mg tablet 40 mg PO QDAY Qty: 90 0RF metformin 1,000 mg tablet 1,000 mg PO BIDWMEAL Qty: 180 1RF naproxen 500 mg tablet 500 mg PO BID Qty: 180 3RF (DME) pen needle, diabetic [CareTouch Pen Needle] 31 gauge x 5/16 needle See Rx Instructions .Route Qty: 100 3RF Rx Instructions: Injects BID (DME) blood-glucose meter [Accu-Chek Guide Glucose Meter] Misc See Rx Instructions .Route Qty: 1 0RF Rx Instructions: 2 x daily testing (DME) lancets [Accu-Chek Softclix Lancets] Misc See Rx Instructions .Route Qty: 100 3RF Rx Instructions: As directed- tests 2x daily glyburide 5 mg tablet 5 mg PO DAILY amlodipine 10 mg tablet 10 mg PO DAILY ciprofloxacin HCl [Cipro] 500 mg tablet 500 mg PO BID Novolin 70-30 FlexPen U-100 100 unit/mL (70-30) insulin pen 45 unit subcut BID Qty: 60 1RF (DME) Blood Glucose Test Strip See Rx Instructions .Route Qty: 360 0RF Rx Instructions: test BID (DME) blood pressure monitor Kit See Rx Instructions .Route Qty: 1 0RF Rx Instructions: As directed <Maryam Franklin MD - Last Filed: 07/13/24 00:08> Follow Up/Referrals: Demetrius Farris MD [Primary Care Provider] - <Maryam Franklin MD - Last Filed: 07/13/24 00:08>
--- NOTE | 2024-07-12 20:37 | CRLHL7_ITS ---
For Patients: As a result of the Century Cures Act, medical imaging exams and procedure reports are released immediately into your electronic medical record. You may view this report before your referring provider. If you have questions, please contact your health care provider. Indication: Fever, UTI, right flank pain Technique: CT through the abdomen and pelvis following 66 mL Isovue 370 IV contrast Comparison: None Findings: Lower chest: Bibasilar atelectasis and/or scarring. Hepatobiliary: No significant parenchymal abnormality is appreciated. Cholecystectomy. Spleen: Unremarkable. Pancreas: No acute abnormality appreciated. Adrenal glands: No acute abnormality appreciated. Kidneys: Leajs-oiarpql-ckpl-left patchy parenchymal hypoenhancement within the kidneys. No hydronephrosis. No visualized calculi. Bowel: No obstruction. No focal perienteric or pericolonic stranding is appreciated. The appendix is visualized and appears unremarkable. Vascular: Atherosclerosis. Lymph nodes: No gross lymphadenopathy. Peritoneum: No free air. No free fluid. : Tubal ligation clips. Soft tissues: No acute abnormality appreciated. Fat containing umbilical hernia. Bones: No acute fracture. No lytic or blastic lesion. Mild spondylosis. Impression: Krkfp-qhvvbxh-nyav-left patchy parenchymal hypoenhancement noted in the kidneys, no other acute abnormality appreciated. Findings are concerning for pyelonephritis given reported history. Please note that all CT scans at this facility use dose modulation, iterative reconstruction, and/or weight-based dosing when appropriate to reduce radiation dose to as low as reasonably achievable. Dictated by Nick Conde MD @ 07/12/2024 11:37:40 PM (Electronically Signed)
[2024-07-12 21:20] LABS: Basophils Percent Auto 0.1 % (0.0-3.0); Eosinophils Percent Auto 0.1 % (0.0-7.0); Hematocrit 33.7 % (33.0-51.0); Hemoglobin* 11.3 gm/dL (12.0-16.0); Immature Granulocytes Pct Auto 0.7 %; Lactate* 1.8 mmol/L (0.5-1.9); Mean Corpuscular HGB Conc 34 gm/dL (32-36); Mean Corpuscular Hemoglobin 28 pg (26-34); Mean Corpuscular Volume 84 fL (80-100); Monocytes Percent Auto 4.6 % (0.0-11.0); Neutrophils Percent Auto 90.5 % (42.0-72.0); Platelet Count* 174 K/uL (140-440); RDW Coefficient of Variation % 13.8 % (11.5-15.5); Red Blood Count 4.03 m/uL (4.00-5.20); White Blood Count* 12.15 K/uL (4.50-11.00)
[2024-07-12] MEDS: 0.9 % SODIUM CHLORIDE 1000 ml 1,000 ML 500 ML IV ×2 (21:26→22:46)
[2024-07-12] MEDS: KETOROLAC 15 MG/ML inj IVP (21:26)
[2024-07-12] MEDS: cefTRIAXone 2 GM in 0.9 % SODIUM CHLORIDE Mini-bag 100 ML IVPB (21:28)
[2024-07-12 21:35] LABS: Slide Review Reflex No
[2024-07-12 21:49] LABS: Albumin* 3.5 g/dL (3.3-5.0); Chloride* 101 mmol/L (96-114); Sodium* 131 mmol/L (135-149)
[2024-07-12 21:50] LABS: Potassium* 4.2 mmol/L (3.6-5.1)
[2024-07-12 21:52] LABS: Alanine Aminotransferase* 49 U/L (4-35); Alkaline Phosphatase* 284 U/L (40-150); Anion Gap 9 mEq/L (7-15); Aspartate Amino Transferase* 65 U/L (12-35); Bilirubin Total* 1.1 mg/dL (0.1-1.5); Blood Urea Nitrogen* 22 mg/dL (7-30); Carbon Dioxide* 21 mmol/L (20-32); Creatinine* 0.9 mg/dL (0.5-1.5); Est. Creatinine Clearance* 55.86; Estimated Glomerular Filt Rate 76 ml/min
[2024-07-12 21:53] LABS: Calcium* 8.8 mg/dL (8.4-10.6)
[2024-07-12 21:59] LABS: PCR FLU A Negative PCR FLU A (Negative); PCR FLU B Negative PCR FLU B (Negative); PCR RSV Negative PCR RSV (Negative); SARS PCR* Negative SARS-CoV-2 (Negative)
[2024-07-12 22:09] LABS: Procalcitonin* 8.22 ng/mL (<0.50)
[2024-07-12 22:14] LABS: Glucose* 540 mg/dL (60-115); Troponin I* < 0.01 ng/mL (0.01-0.04)
[2024-07-12 22:32] LABS: HCO3 VBG 22 mmol/L (21-28); PCO2 VBG 33 mmHG (40-50); PO2 VBG 51.1 mmHG (25-47); pH VBG 7.437 (7.32-7.43)
[2024-07-12] MEDS: INSULIN REGULAR, HUMAN 100 UNIT/ML VIAL 10 UNIT IVP (22:46)
[2024-07-12 23:24] LABS: Glucose, Point-of-Care* 363 mg/dl (60-115)
[2024-07-12] MEDS: ACETAMINOPHEN 500 MG TABLET 1000 MG PO (23:34)
[2024-07-12 23:37] LABS: C Reactive Protein* 33.5 mg/dL (0.5-1.0)
[2024-07-12] MEDS: 0.9 % SODIUM CH + KCL 20 mEq/L 1,000 ML 100 ML IV (23:52)
[2024-07-13] VITALS (11 sets, daily range): BP systolic 145–160; BP diastolic 76–97; PULSE 91–103; RESP 16–18; TEMP 36.8–37.2; O2SAT 91–98; BMI 27.3
[2024-07-13 07:29] LABS: Basophils Percent Auto 0.2 % (0.0-3.0); Eosinophils Percent Auto 0.2 % (0.0-7.0); Hematocrit 32.4 % (33.0-51.0); Hemoglobin* 10.8 gm/dL (12.0-16.0); Immature Granulocytes Pct Auto 0.6 %; Lymphocytes Percent Auto 9.5 % (20-44); Mean Corpuscular HGB Conc 33 gm/dL (32-36); Mean Corpuscular Hemoglobin 28 pg (26-34); Mean Corpuscular Volume 84 fL (80-100); Monocytes Percent Auto 6.2 % (0.0-11.0); Neutrophils Percent Auto 83.3 % (42.0-72.0); Platelet Count* 169 K/uL (140-440); RDW Coefficient of Variation % 14.3 % (11.5-15.5); Red Blood Count 3.85 m/uL (4.00-5.20); White Blood Count* 12.51 K/uL (4.50-11.00)
[2024-07-13 07:38] LABS: Chloride* 109 mmol/L (96-114)
[2024-07-13 07:39] LABS: Sodium* 136 mmol/L (135-149)
[2024-07-13 07:41] LABS: Creatinine* 0.6 mg/dL (0.5-1.5); Est. Creatinine Clearance* 83.79; Estimated Glomerular Filt Rate 106 ml/min
[2024-07-13 07:42] LABS: Anion Gap 8 mEq/L (7-15); Blood Urea Nitrogen* 17 mg/dL (7-30); Calcium* 8.2 mg/dL (8.4-10.6); Carbon Dioxide* 19 mmol/L (20-32); Glucose* 309 mg/dL (60-115); Slide Review Reflex No
[2024-07-13] MEDS: glyBURIDE 5 MG TABLET PO (09:04)
[2024-07-13] MEDS: lisinopriL 10 MG TABLET PO (09:04)
[2024-07-13] MEDS: ASPIRIN 81 MG TABLET EC PO (09:04)
[2024-07-13] MEDS: AMLODIPINE 10 MG TABLET PO (09:04)
[2024-07-13] MEDS: METFORMIN 1,000 MG TABLET 1000 MG PO ×2 (09:04→19:14)
[2024-07-13] MEDS: INSULIN PROT/ASP (NOVOLOG 70/30) 100 UNIT/ML 45 UNIT SUBCUT ×2 (09:42→22:50)
[2024-07-13] MEDS: 0.9 % SODIUM CH + KCL 20 mEq/L 1,000 ML 100 ML IV (10:38)
[2024-07-13] MEDS: ACETAMINOPHEN 500 MG TABLET 1000 MG PO (14:13)
[2024-07-13] MEDS: KETOROLAC 15 MG/ML inj IVP (15:34)
[2024-07-13] MEDS: ONDANSETRON 2 MG/ML inj 4 MG IVP ×2 (16:07→18:24)
--- NOTE | 2024-07-13 18:45 | P.IMHP_ITS ---
Hospitalist- H&P: HPI History of Present Illness Date Seen: 07/13/24 Chief complaint: Check for UTI Narrative: ADMISSION HISTORY AND PHYSICAL - HOSPITALIST Chief Complaint: UTI with fever HPI: This is a 54-year-old female with poorly controlled type 2 diabetes, hypertension who presents with worsening symptoms of a UTI that include fever and flank pain. She has had multiple UTIs over the last year all growing E coli. She had to stay in the ED for almost 24 hours given there were no beds on the floor.. During this time her blood culture returned Gram-negative rods. Her urine culture has finalized on E coli as out was obtained in a clinic visit. She has also had bacteremia in this year from the same E coli. The vast majority of her urine cultures and the 2 blood cultures now are growing E coli resistant to Cipro. Most recent infection was treated with Cipro. ER COURSE: Unfortunately she had an extended stay in our ER due to census. She had appropriate cultures, imaging and labs. She was given fluids, insulin, antibiotics, her usual home meds. CODE STATUS: FULL CODE EMERGENCY CONTACT PLAN: Jinny Rubin Rel To Pat Daughter Cell I've updated the PFSH, medications and allergies in the Expanse tabs. INVESTIGATIONS: LABS/MICRO/ECG/IMAGING TMax in the ED was 100.4; currently afebrile. blood pressure - stable. elevated. tachy to 121 - improving. RR unlabored - RA CT abdomen pelvis with contrast -Kydan-qeyjqcg-ztux-left patchy parenchymal hypoenhancement noted in the kidneys, no other acute abnormality appreciated. Findings are concerning for pyelonephritis given reported history. White count 12.5 Hemoglobin 10.8 Platelets 169 PH upon ER arrival 7.43, 7.42 upon admission to the floor Trending labs from arrival in the ER to arrival on the floor I see that her sodium is improving, creatinine has improved as well as a GFR Markedly elevated procalcitonin and CRP Elevated LFTs Negative respiratory screen Presenting urine at the urgent care visit the day before ED arrival did show 4+ ketones, positive nitrite, negative leukocyte esterase 2+ glucose Bacteria isolated in her urine from 07/11 is E coli resistant to ampicillin and, Unasyn, Cipro, Gent, levo, tobramycin, bactrim EKG - sinus tach REVIEW OF SYSTEMS: 12-point ROS completed with patient and negative unless otherwise stated in HPI or below. PHYSICAL EXAM: CONSTITUTIONAL: Japanese speaking. Daughter is the system safety manager. She looks tired and flushed. GENERAL: Well-developed and at ideal body weight, in no respiratory distress. VITAL SIGNS: see record. HEENT: Sclerae are anicteric. No petechiae. CARDIAC: rhythm is regular. There is no S3 or rub. No harsh murmurs. Extremities show trace edema with symmetrical pulses. PULM: good air entry with no wheeze. NEURO: Speech is fluent. A brief neurologic exam is negative. SKIN: No rashes, petechiae, concerning changes PSYCHIATRIC: Euthymic. ADMIT TO MEDSURG: FLOOR CARE DVT: Lovenox GI: PO intake Time spent: Today I spent 75 minutes seeing the patient, discussing the patient with ER staff, reviewing Expanse and EPIC notes/diagnostics, discussing the care plan with our care time that includes social work, PT/OT, pharmacy, RT, correction and documenting my impressions and plan in the medical record. MEDICAL NECESSITY FOR HOSPITALIZATION Anticipated midnights in the hospital: Admitting diagnosis: Acute pyelonephritis with bacteremia Risk of morbidity and mortality: high Acuity is characterized as high and reflected in: This patient is a poorly controlled type 2 diabetic, she has hypertension, has a multi drug-resistant bacteria E coli growing in her urine. This same bacteria is growing in her blood, she is bacteremic. She is not tolerating p.o.. She has been febrile. This patient will require hospital services as outlined in the assessment and plan in order to stabilize and be safely discharged to a lower level of care. Because of the risk and acuity as described above, this patient cannot be managed at a lower level of care. LENGTH OF STAY: 2 IP ? Anticipated LOS>2 midnights due to acuity of clinical presentation requiring inpatient level of care [facility] Medical History (Updated 07/13/24 @ 21:42 by Becky Martini MD) Diabetic neuropathy ?E11.40 - Type 2 diabetes mellitus with diabetic neuropathy, unspecified (ICD-10) Recurrent UTI ?N39.0 - Urinary tract infection, site not specified (ICD-10) Anemia ?D64.9 - Anemia, unspecified (ICD-10) COVID-19 ?U07.1 - COVID-19 (ICD-10) Mixed hyperlipidemia ?E78.2 - Mixed hyperlipidemia (ICD-10) Type 2 diabetes mellitus, with long-term current use of insulin ?E11.9 - Type 2 diabetes mellitus without complications (ICD-10) ?Z79.4 - roasterman (current) use of insulin (ICD-10) Primary hypertension ?I10 - Essential (primary) hypertension (ICD-10) Mantador-Walker grade 2 cystocele ?N81.10 - Cystocele, unspecified (ICD-10) Depression ?F32.A - Depression, unspecified (ICD-10) Vitamin D deficiency ?E55.9 - Vitamin D deficiency, unspecified (ICD-10) Surgical History History of vaginal delivery History of 2 sections ?Z98.891 - History of uterine scar from previous surgery (ICD-10) History of tubal ligation (2006) ?Z98.51 - Tubal ligation status (ICD-10) Hx laparoscopic cholecystectomy (04/25/05) ?Z90.49 - Acquired absence of other specified parts of digestive tract (ICD- 10) Family History Father Liver disease Alcohol dependence Brother Diabetes Mother Diabetes Son Family history of testicular cancer, Onset Age: 26 Other No family history of breast cancer No family history of colorectal cancer Social History Narrative: , three kids, 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 [employer], nonsmoker, no EtOH Smoking Status: Never smoker Do you use any of these nicotine containing products: None Second hand tobacco smoke exposure: No How often do you have a drink containing alcohol: never AUDIT-C Alcohol total score: 0 Non-prescribed substance use: denies use service: No Meds Home Medications and Allergies Home Medications ?Medication ?Instructions ?Recorded ?Confirmed ?Type amlodipine 10 mg tablet 10 mg PO DAILY 07/13/24 07/13/24 History ciprofloxacin HCl 500 mg tablet 500 mg PO BID 07/13/24 07/13/24 History (Cipro) glyburide 5 mg tablet 5 mg PO DAILY 07/13/24 07/13/24 History Allergies Allergy/AdvReac Type Severity Reaction Status Date / Time No Known Drug Allergies Allergy Verified 07/12/24 20:08 Exam Const: Vital Signs, click to edit/add: Vital Signs - 24 hr 07/12/24 20:08 07/12/24 21:42 07/12/24 21:45 Temperature 100.4 F H Pulse Rate 108 H 107 H Pulse Rate [Pulse Oximeter] 121 H Respiratory Rate 24 Blood Pressure [Ri ght Upper Arm] 156/77 H Pulse Oximetry 97 94 94 Oxygen Delivery Me thod Room Air 07/12/24 22:00 07/12/24 22:20 07/12/24 22:51 Temperature Pulse Rate 105 H 110 H 106 H Pulse Rate [Pulse Oximeter] Respiratory Rate Blood Pressure [Ri ght Upper Arm] Pulse Oximetry 95 94 92 Oxygen Delivery Me thod 07/12/24 23:00 07/12/24 23:15 07/12/24 23:30 Temperature Pulse Rate 108 H 102 H 101 H Pulse Rate [Pulse Oximeter] Respiratory Rate Blood Pressure [Ri ght Upper Arm] Pulse Oximetry 93 92 92 Oxygen Delivery Me thod 07/12/24 23:45 07/13/24 00:00 07/13/24 00:15 Temperature Pulse Rate 99 101 H 99 Pulse Rate [Pulse Oximeter] Respiratory Rate Blood Pressure [Ri ght Upper Arm] Pulse Oximetry 92 94 93 Oxygen Delivery Me thod 07/13/24 00:30 07/13/24 00:36 07/13/24 00:45 Temperature 98.6 F Pulse Rate 95 103 H Pulse Rate [Pulse Oximeter] Respiratory Rate Blood Pressure [Ri ght Upper Arm] Pulse Oximetry 92 91 Oxygen Delivery Me thod 07/13/24 01:00 07/13/24 09:00 07/13/24 17:00 Temperature Pulse Rate 100 Pulse Rate [Pulse Oximeter] 97 91 Respiratory Rate 18 18 Blood Pressure [Ri ght Upper Arm] 147/78 H 147/76 H Pulse Oximetry 93 95 94 Oxygen Delivery Me thod Room Air Room Air Hospitalist - H&P: Result Labs Labs: Short CBC 07/12/24 07/13/24 Range/Units 21:10 07:16 WBC 12.15 H 12.51 H (4.50-11.00) K/uL Hgb 11.3 L 10.8 L (12.0-16.0) gm/dL Hct 33.7 32.4 L (33.0-51.0) % Plt Count 174 169 (140-440) K/uL BMP 07/12/24 07/13/24 21:10 07:16 Sodium 131 L 136 Potassium 4.2 4.0 Chloride 101 109 Carbon Dioxide 21 19 L BUN 22 17 Creatinine 0.9 0.6 Glucose 540 H* 309 H Calcium 8.8 8.2 L Cardiac Enzymes 07/12/24 Range/Units 21:10 Troponin I < 0.01 L (0.01-0.04) ng/mL Liver Function 07/12/24 Range/Units 21:10 Total Bilirubin 1.1 (0.1-1.5) mg/dL AST 65 H (12-35) U/L ALT 49 H (4-35) U/L Alkaline Phosphatase 284 H (40-150) U/L Albumin 3.5 (3.3-5.0) g/dL Assessment and Plan Assessment and plan (1) Acute pyelonephritis: Problem comment: -recurrent. January bacteremic. multiple UTIs - same organism E.Coli with same resistance pattern --> Multidrug resistance noted. ESBL was checked; negative. (I confirmed with the lab that we won't see it is negative only if positive, but it is screened) -imaging is reassuring -continue ceftriaxone, 2 grams [id number]. Status: Acute (2) Bacteremia due to Gram-negative bacteria: Problem comment: -c/w with her MDR UTI. 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 not sexually active, no pessary or foreign objects, no reported fistula; reports constipation, poor fluid intake consider topical estrogen, improved glycemic control, a note to work for regular bathroom breaks and access to fluids Status: Acute (4) Type 2 diabetes mellitus, with long-term current use of insulin: Problem comment: A1C 9.6 continue glyburide, metformin, 70/30 per home regimen - SSI and accuchecks Status: Acute (5) Primary hypertension: Problem comment: -continue amlodipine, lisinopril (at reduced dose 40mg --> 10mg) Status: Acute (6) Anemia: Problem comment: -noted/following Status: Acute
[2024-07-13 19:00] LABS: HCO3 VBG 21 mmol/L (21-28); PCO2 VBG 33 mmHG (40-50); PO2 VBG 32.5 mmHG (25-47)
[2024-07-13 19:18] LABS: Chloride* 110 mmol/L (96-114); Potassium* 4.2 mmol/L (3.6-5.1); Sodium* 137 mmol/L (135-149)
[2024-07-13 19:21] LABS: Anion Gap 7 mEq/L (7-15); Blood Urea Nitrogen* 16 mg/dL (7-30); Carbon Dioxide* 20 mmol/L (20-32); Creatinine* 0.5 mg/dL (0.5-1.5); Est. Creatinine Clearance* 100.55; Estimated Glomerular Filt Rate 111 ml/min; Glucose* 229 mg/dL (60-115)
[2024-07-13 19:22] LABS: Calcium* 8.7 mg/dL (8.4-10.6); Magnesium* 1.9 mg/dL (1.5-2.6)
[2024-07-13] MEDS: cefTRIAXone 2 GM in 0.9 % SODIUM CHLORIDE Mini-bag 100 ML IVPB (22:36)
[2024-07-13] MEDS: 0.9 % SODIUM CHLORIDE 1000 ml 1,000 ML 125 ML IV (22:37)
[2024-07-13] MEDS: ENOXAPARIN 40 MG/0.4 ML INJ SUBCUT (22:37)
[2024-07-13] MEDS: SODIUM CHLORIDE 0.9 % (FLUSH) 10 ML SYRINGE 5 ML IVF (22:37)
[2024-07-13] MEDS: ACETAMINOPHEN 325 MG TABLET 975 MG PO (22:38)
[2024-07-13] MEDS: INSULIN ASPART 100 UNIT/ML SUBCUT (22:51)
[2024-07-13] MEDS: HYDROmorphone 0.5 mg/0.5 ml inj 0.2 MG IVP (23:40)
[2024-07-13] MEDS: PROCHLORPERAZINE 5 MG/ML VIAL 10 MG IV (23:40)
--- NOTE | 2024-07-14 00:02 | PC.NURSE ---
End of shift: Pt arrived to unit @ 2034 via wheelchair. Accompanied by family. Pt is AxOx4, cooperative, and pleasant. LSCTA. Active bowel sounds. RA. Afebrile. Pt is italian speaking, son and daughter interpret for Pt. Pt refused our services. Pt reported 8/10 back pain, editorial writer utilized PRN tylenol. Following medication, Pt had an emesis episode. Pt reported having difficulty keeping any food or drink down. Program Development Manager notified MD regarding pain medication. Pt is indep in room, denies dizziness and headache. Pt took a shower and reported slight relief from back pain. Pt is up in chair with family at bedside. NS running @ 125ml. B. Insulin given. Abx given. Call light in reach.
[2024-07-14] MEDS: HYDROmorphone 0.5 mg/0.5 ml inj 0.2 MG IVP ×2 (02:27→06:19)
[2024-07-14] MEDS: ONDANSETRON 2 MG/ML inj 4 MG IVP (02:28)
[2024-07-14 03:00] VITALS: BP 141/74; PULSE 99; RESP 20; TEMP 36.8; O2SAT 97
[2024-07-14] MEDS: PROCHLORPERAZINE 5 MG/ML VIAL 10 MG IV (06:19)
[2024-07-14] MEDS: 0.9 % SODIUM CHLORIDE 1000 ml 1,000 ML 125 ML IV (06:20)
--- NOTE | 2024-07-14 06:27 | PC.NURSE ---
End of shift report [id number]: Pleasant and cooperative. patient is upper sorbian speaking only but declines our certified court/medical interpreter services, patient requested her children interpret for her. Nausea and vomiting reported, patient states that she has been unable to keep any fluids or food down due to nausea. PRN compazine and zofran alternated throughout the night and patient now denies any nausea but does not want to try drinking at this time for fear of nausea. Pain to back reported at 8/10, prn dilaudid utilized due to patient unable to keep fluids/food/medications down, patient reported good pain management with medications and pain down to 3/10. Ambulates independently.Denies any dysuria at this time.
[2024-07-14 07:00] VITALS: BP 153/75; PULSE 92; RESP 18; TEMP 36.8; O2SAT 94
[2024-07-14 07:04] LABS: Basophils Percent Auto 0.1 % (0.0-3.0); Eosinophils Percent Auto 0.9 % (0.0-7.0); Hematocrit 30.4 % (33.0-51.0); Hemoglobin* 10.2 gm/dL (12.0-16.0); Immature Granulocytes Pct Auto 1.4 %; Lymphocytes Percent Auto 17.1 % (20-44); Mean Corpuscular HGB Conc 34 gm/dL (32-36); Mean Corpuscular Hemoglobin 28 pg (26-34); Mean Corpuscular Volume 83 fL (80-100); Monocytes Percent Auto 8.8 % (0.0-11.0); Neutrophils Percent Auto 71.7 % (42.0-72.0); Platelet Count* 207 K/uL (140-440); RDW Coefficient of Variation % 14.5 % (11.5-15.5); Red Blood Count 3.66 m/uL (4.00-5.20)
[2024-07-14 07:05] LABS: HCO3 VBG 21 mmol/L (21-28); PCO2 VBG 33 mmHG (40-50); PO2 VBG 44.1 mmHG (25-47)
[2024-07-14 07:13] LABS: Slide Review Reflex No
[2024-07-14 07:38] LABS: Albumin* 3.1 g/dL (3.3-5.0); Chloride* 111 mmol/L (96-114); Sodium* 139 mmol/L (135-149)
[2024-07-14 07:39] LABS: Potassium* 3.7 mmol/L (3.6-5.1)
[2024-07-14 07:41] LABS: Alkaline Phosphatase* 208 U/L (40-150); Anion Gap 7 mEq/L (7-15); Aspartate Amino Transferase* 35 U/L (12-35); Bilirubin Total* 0.5 mg/dL (0.1-1.5); Carbon Dioxide* 21 mmol/L (20-32); Creatinine* 0.6 mg/dL (0.5-1.5); Est. Creatinine Clearance* 83.79; Estimated Glomerular Filt Rate 106 ml/min; Total Protein* 6.5 g/dL (6.0-8.3)
[2024-07-14 07:42] LABS: Alanine Aminotransferase* 47 U/L (4-35); Blood Urea Nitrogen* 17 mg/dL (7-30); Calcium* 8.3 mg/dL (8.4-10.6); Glucose* 75 mg/dL (60-115)
[2024-07-14 07:58] LABS: Procalcitonin* 4.72 ng/mL (<0.50)
--- NOTE | 2024-07-14 09:27 | PM.IMPN1 ---
Progress Note: A&P Assessment and plan (1) Acute pyelonephritis: Problem details: - recurrent. January bacteremic. multiple UTIs - same organism E.Coli with same resistance pattern --> Multidrug resistance noted. ESBL was checked; negative. (I confirmed with the lab that we won't see it is negative only if positive, but it is screened) - imaging is reassuring, c/w symptoms - continue ceftriaxone, 2 grams [id number]. Status: Acute (2) Bacteremia due to Gram-negative bacteria: Problem details: - c/w with her MDR UTI. 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 - not sexually active, no pessary or foreign objects, no reported fistula; reports constipation, poor fluid intake - consider outpatient topical estrogen, improved glycemic control, a note to work for regular bathroom breaks and access to fluids Status: Acute (4) Type 2 diabetes mellitus, with long-term current use of insulin: Problem details: - last outpatient A1C 9.6 - continue 70/30 per home regimen - SSI and accuchecks - holding Glyburide and Metformin given nausea, decreased po intake, lower am BGs Status: Acute (5) Primary hypertension: Problem details: - continue amlodipine, lisinopril (at reduced dose 40mg --> 10mg) Status: Acute (6) Anemia: Problem details: - normocytic: noted/following Status: Acute (7) Elevated LFTs: Problem details: - appears chronic since 2021, previous imaging negative although mild periportal edema noted 01/2024 CT ab/pelvis - continue to follow, further outpatient f/u Status: Acute Plan - per above - home when negative blood cultures and hemodynamically stable/tolerating po intake - daughter updated at bedside, questions answered Subjective Date Seen: 07/14/24 Interval history: Kenia was admitted to the hospital on 07/13 for bacteremia in the setting of pyelonephritis. Urine culture from admission has grown E coli, blood culture also positive for E coli. She is on ceftriaxone appropriately. She has been afebrile for the last 24 hours (although receiving Tylenol regularly). Was significantly tachycardic in the emergency room, this has improved with IV fluid administration. She is tolerating some po intake, intermittent nausea but no vomiting. Blood sugars are stable. We are holding her metformin and glyburide, receiving lower doses of insulin given decreased po intake. Still having some right-sided back pain, no other concerns for hospitalist team this morning. Exam Narrative: Exam Narrative: GEN: Alert HEENT: Normal external ears, EOMIs bilaterally, no scleral icterus CV: RRR, soft systolic murmur heard best at right sternal border R: LCTA bilaterally without concerning wheezing, rales, or rhonchi Ab: Soft and nontender Back: + right-sided CVA tenderness Ext: Edema of bilateral hands and feet, no edema of calves, negative David sign bilaterally Skin: No concerning skin lesions or rashes on exposed skin Neuro: Nonfocal Psych: Appropriate Const: Vital Signs, click to edit/add: Vital Signs - 24 hr 07/13/24 17:00 07/13/24 19:18 07/13/24 21:37 Temperature 98.2 F 98.9 F Pulse Rate [Pulse Oximeter] 91 91 101 H Respiratory Rate 18 16 16 Blood Pressure [Ri ght Arm] 160/83 H Blood Pressure [Ri ght Upper Arm] 147/76 H 157/78 H Pulse Oximetry 94 98 96 Oxygen Delivery Me thod Room Air Room Air Room Air 07/13/24 21:37 07/13/24 21:37 07/13/24 23:00 Temperature 98.9 F 98.6 F Pulse Rate [Pulse Oximeter] 101 H 97 Respiratory Rate 16 16 16 Blood Pressure [Ri ght Arm] 160/83 H 145/97 H Blood Pressure [Ri ght Upper Arm] Pulse Oximetry 96 96 94 Oxygen Delivery Me thod Room Air Room Air Room Air 07/14/24 03:00 07/14/24 07:00 07/14/24 07:00 Temperature 98.3 F 98.3 F Pulse Rate [Pulse Oximeter] 99 92 92 Respiratory Rate 20 18 18 Blood Pressure [Ri ght Arm] 141/74 H 153/75 H Blood Pressure [Ri ght Upper Arm] Pulse Oximetry 97 94 Oxygen Delivery Me thod Room Air Room Air Labs Labs: Laboratory Results - last 24 hr 07/13/24 07/14/24 18:55 06:29 WBC 13.90 H RBC 3.66 L Hgb 10.2 L Hct 30.4 L MCV 83 MCH 28 MCHC 34 RDW Coeff of [place] 14.5 Plt Count 207 Neut % (Auto) 71.7 Lymph % (Auto) 17.1 L [place] % (Auto) 8.8 Eos % (Auto) 0.9 Baso % (Auto) 0.1 Neut # (Auto) 10.00 H Lymph # (Auto) 2.40 [place] # (Auto) 1.20 H Eos # (Auto) 0.10 Baso # (Auto) 0.00 Abs Immat Gran (auto) 0.20 Imm/Tot Granulo (auto) 1.4 VBG pH 7.420 7.410 VBG pCO2 33 L 33 L VBG pO2 32.5 44.1 VBG HCO3 21 21 Sodium 137 139 Potassium 4.2 3.7 Chloride 110 111 Carbon Dioxide 20 21 Anion Gap 7 7 BUN 16 17 Creatinine 0.5 0.6 Estimated Creat Clear 100.55 83.79 Estimated GFR 111 106 Glucose 229 H 75 Calcium 8.7 8.3 L Magnesium 1.9 2.0 Total Bilirubin 0.5 AST 35 ALT 47 H Alkaline Phosphatase 208 H C-Reactive Protein 25.0 H Total Protein 6.5 Albumin 3.1 L Procalcitonin 4.72 H TSH 4.070
[2024-07-14] MEDS: lisinopriL 10 MG TABLET PO (09:46)
[2024-07-14] MEDS: ACETAMINOPHEN 325 MG TABLET 975 MG PO ×2 (09:46→18:52)
[2024-07-14] MEDS: AMLODIPINE 10 MG TABLET PO (09:46)
[2024-07-14] MEDS: INSULIN PROT/ASP (NOVOLOG 70/30) 100 UNIT/ML 45 UNIT SUBCUT ×2 (10:22→21:44)
[2024-07-14] MEDS: SODIUM CHLORIDE 0.9 % (FLUSH) 10 ML SYRINGE 5 ML IVF ×2 (10:24→21:22)
[2024-07-14 11:00] VITALS: BP 148/76; PULSE 91; RESP 18; TEMP 36.8; O2SAT 98
[2024-07-14] MEDS: INSULIN ASPART 100 UNIT/ML SUBCUT ×2 (14:32→17:15)
[2024-07-14 15:00] VITALS: BP 148/76; PULSE 91; RESP 18; TEMP 36.8; O2SAT 98
[2024-07-14] MEDS: GABAPENTIN 300 MG CAPSULE 600 MG PO (18:46)
[2024-07-14 19:00] VITALS: BP 150/84; PULSE 89; RESP 16; TEMP 36.8; O2SAT 99
--- NOTE | 2024-07-14 19:04 | PC.NURSE ---
End of shift: patient alert and oriented. Kinyarwanda speaking but refused manager school. Patient is more comfortable having her adult children translate for her. Patient ambulates to BR and hallways independently. Voiding regularly throughout the day. Patient is consuming adequate intake of water throughout the day. SL and IV in right AC patent. Patient's VSS. PRN tylenlol administered for pain with relief. Patient denies Nausea or vomiting. Tolerating a therapeutic diet. Patient on RA, sliding scale used for Blood sugar control.
[2024-07-14] MEDS: ENOXAPARIN 40 MG/0.4 ML INJ SUBCUT (21:22)
[2024-07-14] MEDS: cefTRIAXone 2 GM in 0.9 % SODIUM CHLORIDE Mini-bag 100 ML IVPB (21:35)
--- NOTE | 2024-07-14 23:33 | PC.NURSE ---
End of shift: patient AxOx4, cooperative, and pleasant. Qatari speaking but refused french instructor. Pts son and daughter are whom Pt is comfortable interperating for. Patient ambulates to BR and hallways independently. SL. VSS. Patient denies Nausea or vomiting. Patient reports 2/10 pain to the lower back, policy writer sales utilized position change and warming blanket. Pt refused PRN medication. Tolerating a therapeutic diet. Sliding scale held at HS per MD orders. Pt sitting in chair with family at bedside, call light within reach.
[2024-07-14 23:40] VITALS: BP 143/66; PULSE 77; RESP 18; TEMP 36.9; O2SAT 97
[2024-07-15 03:50] VITALS: BP 153/79; PULSE 94; RESP 18; TEMP 36.4; O2SAT 100
--- NOTE | 2024-07-15 06:46 | PC.NURSE ---
End of shift summary: Pt has been A&O, afebrile and VSS overnight. She?s up independently in her room with a steady gait. Reports adequate U/O and no BM overnight. Blood sugars 225 at HS > 80 at 0200 check. Pt denied having pain, nausea or dizziness overnight. She slept well in between cares. PIV in right FA SL and C/D/I. Blood cultures final result + E. Coli. Pt?s son stayed the night and interpreted for her. ??
[2024-07-15 06:59] LABS: Basophils Absolute Auto 0.03 K/uL (0.00-0.30); Basophils Percent Auto 0.3 % (0.0-3.0); Eosinophils Absolute Auto 0.36 K/uL (0.00-0.50); Eosinophils Percent Auto 3.5 % (0.0-7.0); Hematocrit 30.7 % (33.0-51.0); Hemoglobin* 10.4 gm/dL (12.0-16.0); Immature Granulocytes Pct Auto 1.9 %; Lymphocytes Absolute Auto 2.34 K/uL (0.90-2.90); Lymphocytes Percent Auto 22.7 % (20-44); Mean Corpuscular HGB Conc 34 gm/dL (32-36); Mean Corpuscular Hemoglobin 28 pg (26-34); Mean Corpuscular Volume 82 fL (80-100); Monocytes Percent Auto 6.3 % (0.0-11.0); Neutrophils Absolute Auto 6.74 K/uL (1.7-7.0); Neutrophils Percent Auto 65.3 % (42.0-72.0); Platelet Count* 225 K/uL (140-440); RDW Coefficient of Variation % 14.5 % (11.5-15.5); Red Blood Count 3.73 m/uL (4.00-5.20); White Blood Count* 10.32 K/uL (4.50-11.00)
[2024-07-15 07:00] VITALS: BP 168/88; PULSE 75; RESP 18; TEMP 37.2; O2SAT 96
[2024-07-15 07:01] LABS: Slide Review Reflex No
[2024-07-15 07:18] LABS: INR 0.91 (0.91-1.10); Prothrombin Time 12.7 Seconds
[2024-07-15 07:23] LABS: Iron* 68 ug/dL (37-170)
[2024-07-15 07:25] LABS: Chloride* 107 mmol/L (96-114)
[2024-07-15 07:26] LABS: Potassium* 3.4 mmol/L (3.6-5.1); Sodium* 139 mmol/L (135-149)
[2024-07-15 07:28] LABS: Albumin* 3.2 g/dL (3.3-5.0); Creatinine* 0.6 mg/dL (0.5-1.5); Est. Creatinine Clearance* 83.79; Estimated Glomerular Filt Rate 106 ml/min; Gamma Glutamyl Transpeptidase* 145 U/L (8-55)
[2024-07-15 07:29] LABS: Anion Gap 9 mEq/L (7-15); Blood Urea Nitrogen* 13 mg/dL (7-30); Calcium* 8.4 mg/dL (8.4-10.6); Carbon Dioxide* 23 mmol/L (20-32); Glucose* 75 mg/dL (60-115)
[2024-07-15 07:31] LABS: Aspartate Amino Transferase* 26 U/L (12-35); Bilirubin Direct* 0.3 mg/dL (0.0-0.5); Bilirubin Total* 0.4 mg/dL (0.1-1.5); Total Protein* 6.8 g/dL (6.0-8.3)
[2024-07-15 07:32] LABS: Alanine Aminotransferase* 36 U/L (4-35); Alkaline Phosphatase* 209 U/L (40-150)
[2024-07-15 07:33] LABS: Percent Iron Saturation 25 % (20-50); Total Iron Binding Capacity 268 ug/dL (265-497)
[2024-07-15] MEDS: INSULIN PROT/ASP (NOVOLOG 70/30) 100 UNIT/ML 45 UNIT SUBCUT (09:23)
[2024-07-15] MEDS: lisinopriL 10 MG TABLET PO (09:24)
[2024-07-15] MEDS: AMLODIPINE 10 MG TABLET PO (09:24)
[2024-07-15] MEDS: SODIUM CHLORIDE 0.9 % (FLUSH) 10 ML SYRINGE 5 ML IVF (09:24)
[2024-07-15 11:00] VITALS: BP 174/75; PULSE 99; RESP 16; TEMP 36.9; O2SAT 92
[2024-07-15] MEDS: INSULIN ASPART 100 UNIT/ML SUBCUT (13:07)
[2024-07-15 15:00] VITALS: BP 155/88; PULSE 98; PULSE 99; RESP 16; TEMP 36.8; O2SAT 97
--- NOTE | 2024-07-15 15:37 | P.DS_ITS ---
DS: Providers Provider Date Seen: 07/15/24 Date of admission: 07/13/24 20:43 Primary care physician: Demetrius Farris MD Admitting Clinician: Becky Martini MD Consults: 07/15/24 14:36 Consult to Infectious Diseases [CONS] Routine Comment: Consulting Provider: Millie TeleInfectious Disease Attending Physician on discharge: Kasie Shukla MD Date of Discharge: 07/15/24 DS: Diagnosis Discharge Diagnosis (1) Acute pyelonephritis: Status: Acute Problem details: - recurrent. January bacteremic. multiple UTIs - same organism E.Coli with same resistance pattern --> Multidrug resistance noted. - ESBL was checked; negative. (confirmed with the lab that we won't see it is negative only if positive, but it is screened) - imaging is reassuring, c/w symptoms - treated with IV ceftriaxone, 2 grams daily - referral to ID on 07/15; plan to d/c home on Cefuroxime 500mg BID for 14 days (2) Bacteremia due to Gram-negative bacteria: Status: Acute Problem details: - c/w with her MDR UTI. 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 - not sexually active, no pessary or foreign objects, no reported fistula; reports constipation, poor fluid intake - consider outpatient topical estrogen, improved glycemic control, a note to work for regular bathroom breaks and access to fluids - patient understands these recommendations, close PCP follow-up (4) Type 2 diabetes mellitus, with long-term current use of insulin: Status: Acute Problem details: - last outpatient A1C 9.6 - continue 70/30 per home regimen - SSI and accuchecks - holding Glyburide and Metformin given nausea, decreased po intake, lower am BGs - evident improved and oral medications restarted upon discharge (5) Primary hypertension: Status: Acute Problem details: - continue amlodipine, lisinopril (at reduced dose 40mg --> 10mg) (6) Anemia: Status: Acute Problem details: - normocytic: noted/following (7) Elevated LFTs: Status: Acute Problem details: - appears chronic since 2021, previous imaging negative although mild periportal edema noted 01/2024 CT ab/pelvis - continue to follow, outpatient follow-up DS: Summary Hospital Course Hospital Course: Kenia is a 54-year-old female who was admitted to the hospital for right- sided pyelonephritis and E coli bacteremia. She has a history of recurrent E coli UTIs and bacteremia previously in January of 2024. Tolerated IV ceftriaxone well and requesting discharge home on 07/15/2024. Reviewed case with Infectious Disease, recommend 14 day course of Cefuroxime. Comorbidities (elevated LFTs, DM2, essential HTN) stable. Home BP medications held upon admission for bacteremia, then restarted as patient became hypertensive during stay. Status at Discharge Functional status at discharge: independent ambulation Overall status at discharge: patient is progressing back to baseline Time Spent with Patient Time attestation: Total time spent providing and/or coordinating discharge services: Time spent: Greater than 30 minutes Exam Narrative: Exam Narrative: GEN: Alert HEENT: Normal external ears, EOMIs bilaterally, no scleral icterus CV: RRR, No concerning murmurs, rubs, or gallops R: LCTA bilaterally without concerning wheezing, rales, or rhonchi Ab: Soft and nontender Back: Mild right-sided CVA tenderness, much improved from exam yesterday Ext: wwp, no concerning edema Skin: No concerning skin lesions or rashes on exposed skin Neuro: Nonfocal Psych: Appropriate Const: Vital Signs, click to edit/add: Vital Signs - 24 hr 07/14/24 19:00 07/14/24 23:40 07/14/24 23:40 Temperature 98.2 F 98.4 F Pulse Rate [Pulse Oximeter] 89 77 77 Respiratory Rate 16 18 18 Blood Pressure [Ri ght Arm] 150/84 H 143/66 H Pulse Oximetry 99 97 Oxygen Delivery Me thod Room Air Room Air 07/15/24 03:50 07/15/24 07:00 07/15/24 07:00 Temperature 97.5 F L 98.9 F Pulse Rate [Pulse Oximeter] 94 75 75 Respiratory Rate 18 18 18 Blood Pressure [Ri ght Arm] 153/79 H 168/88 H Pulse Oximetry 100 96 Oxygen Delivery Me thod Room Air Room Air 07/15/24 11:00 Temperature 98.5 F Pulse Rate [Pulse Oximeter] 99 Respiratory Rate 16 Blood Pressure [Ri ght Arm] 174/75 H Pulse Oximetry 92 Oxygen Delivery Me thod Room Air DS: Data Data Completed and Pending Labs on day of discharge: Labs from last 24 hours 07/15/24 06:09 WBC 10.32 RBC 3.73 L Hgb 10.4 L Hct 30.7 L MCV 82 MCH 28 MCHC 34 RDW Coeff of [place] 14.5 Plt Count 225 Neut % (Auto) 65.3 Lymph % (Auto) 22.7 [place] % (Auto) 6.3 Eos % (Auto) 3.5 Baso % (Auto) 0.3 Neut # (Auto) 6.74 Lymph # (Auto) 2.34 [place] # (Auto) 0.70 Eos # (Auto) 0.36 Baso # (Auto) 0.03 Abs Immat Gran (auto) 0.20 Imm/Tot Granulo (auto) 1.9 INR 0.91 Sodium 139 Potassium 3.4 L Chloride 107 Carbon Dioxide 23 Anion Gap 9 BUN 13 Creatinine 0.6 Estimated Creat Clear 83.79 Estimated GFR 106 Glucose 75 Calcium 8.4 Iron 68 TIBC 268 % Saturation 25 Total Bilirubin 0.4 Direct Bilirubin 0.3 GGT 145 H AST 26 ALT 36 H Alkaline Phosphatase 209 H Total Protein 6.8 Albumin 3.2 L Preliminary micro results at discharge 07/13/24 14:40 Blood Culture - Preliminary Blood NO GROWTH AFTER 48 HOURS Discharge Plan Discharge Disposition: Home, Self-Care Date of Admission: 07/13/24 20:43 Attending Provider on Discharge: Kasie Shukla Consulting Providers: Myesha Hodge; Shannon Cleaning Primary Care Provider: Demetrius Farris Condition: Improved Anticipated Discharge Date/Time: 07/15/24 15:04 Discharge Medications: New estradiol 0.01 % (0.1 mg/gram) cream 1 g vaginal 2XW Qty: 42.5 2RF Rx Instructions: twice/week cefuroxime axetil 500 mg tablet 500 mg PO BID 14 Days Qty: 28 0RF Continued ergocalciferol (vitamin D2) 1,250 mcg (50,000 unit) capsule 1,250 mcg PO QWEEK Qty: 13 3RF lisinopril 40 mg tablet 40 mg PO QDAY Qty: 90 0RF metformin 1,000 mg tablet 1,000 mg PO BIDWMEAL Qty: 180 1RF naproxen 500 mg tablet 500 mg PO BID Qty: 180 3RF glyburide 5 mg tablet 5 mg PO DAILY amlodipine 10 mg tablet 10 mg PO DAILY aspirin 81 mg tablet,delayed release (DR/EC) 81 mg PO HS gabapentin 300 mg capsule 600 mg PO HS Novolin 70-30 FlexPen U-100 100 unit/mL (70-30) insulin pen 45 unit subcut BID Qty: 60 1RF Discontinued ciprofloxacin HCl [Cipro] 500 mg tablet 500 mg PO BID No Action (DME) pen needle, diabetic [CareTouch Pen Needle] 31 gauge x 5/16 needle See Rx Instructions .Route Qty: 100 3RF Rx Instructions: Injects BID (DME) blood-glucose meter [Accu-Chek Guide Glucose Meter] Misc See Rx Instructions .Route Qty: 1 0RF Rx Instructions: 2 x daily testing (DME) lancets [Accu-Chek Softclix Lancets] Misc See Rx Instructions .Route Qty: 100 3RF Rx Instructions: As directed- tests 2x daily (DME) Blood Glucose Test Strip See Rx Instructions .Route Qty: 360 0RF Rx Instructions: test BID (DME) blood pressure monitor Kit See Rx Instructions .Route Qty: 1 0RF Rx Instructions: As directed Discharge Orders: Discharge Order (Routine); Ordered 07/15/24 Ordered By: Kasie Shukla Patient Education: Cefuroxime (By mouth), Estradiol (Into the vagina), Kidney Infection (DC) Additional Instructions: No changes to home medications. We have ADDED antibiotics that you take twice per day for 14 weeks and a vaginal cream that you use two nights per week to prevent recurrent infections. Keep working on good blood sugar control. No hay cambios en los medicamentos caseros. Hemos a?adido antibi?ticos que se corazon dos veces al d?a valarie 14 semanas y nona crema vaginal que se utiliza dos noches a la semana para prevenir infecciones recurrentes. Siga trabajando en un buen control del az?car en la zack. Activity Level: Activity as Tolerated Discharge Diet: Diabetic Follow Up Appointments: Demetrius Farris MD [Primary Care Provider] - 07/23/24 10:15 am ([facility] Follow-up appointment. ) Forms: Work/School Release, MyHealth Info Instructions
--- NOTE | 2024-07-15 17:01 | PC.NURSE ---
DC: Pt alert, oriented and vitally stable, though hypertensive. 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 Pt afebrile. Fluids encouraged. IV removed, tip intact. DC information given to pt and son, topics including medications, follow up and symptoms worsening. Pt DC home with son at 1652.
== END 2024-07-15 16:52 | disposition home or self-care (01) | DRG 463 ==
LOC: ED 07-13 15:47 → MEDSURG 07-13 20:43
PROVIDERS: Family Medicine; Admitting Provider Family Medicine; Emergency Provider Student in an Organized Health Care Education/Training Program; PCP Family Medicine; Visit Provider Family Medicine
DX: N10 Acute pyelonephritis (principal); N39.0 Urinary tract infection, site not specified; B96.89 Other specified bacterial agents as the cause of diseases classified elsewhere; E11.9 Type 2 diabetes mellitus without complications; Z79.4 Long term (current) use of insulin; Z79.84 Long term (current) use of oral hypoglycemic drugs; I10 Essential (primary) hypertension; D64.9 Anemia, unspecified; R74.01 Elevation of levels of liver transaminase levels; B96.20 Unspecified Escherichia coli [E. coli] as the cause of diseases classified elsewhere; Z16.24 Resistance to multiple antibiotics
CPT/HCPCS: 36415; 74177; 80048; 80053; 80076; 82803; 82947; 82962; 82977; 83540; 83550; 83605; 83735; 84145; 84443; 84484; 85025; 85610; 86140; 87040; 87186; 87631; 93005; 94761; 99284; 99285; A9270; J0696; J0780; J1171; J1650; J1885; J2405; J7030; Q9967

== ENCOUNTER 2024-07-22 16:21 | Outpatient (CLI) | payer BC, SELFPAY | END 2024-07-22 16:22 | disposition home or self-care (01) | LOC: NFLDREF 16:23 | PROVIDERS: PCP Internal Medicine; Visit Provider Internal Medicine | DX: R79.89 Other specified abnormal findings of blood chemistry (principal); E11.9 Type 2 diabetes mellitus without complications | CPT/HCPCS: 80053; 87086 ==

== ENCOUNTER 2024-10-11 20:29 | Observation (INO) | payer BC, OTHER, SELFPAY ==
--- OUTSIDE RECORDS SUMMARY | 2024-10-11 20:32 | XMS_ITS | Clinical Summary ---
Author Organization [employer] [facility] Address [address] [place] [id number] Care Team Providers Care Chief Security Officer Name Role Phone Unavailable Primary Care Provider Unavailabl e Allergies No known active allergies Medications ASPIRIN 81 MG TAB, DELAYED RELEASE take 1 tablet (81 mg) by oral route once daily 0 07/27/19 09 Active BLOOD GLUCOSE TEST STRIPS one to use q day 100 1 08/17/19 09 Active gabapentin (NEURONTIN) 100 mg capsuleIndication s:Diabetic peripheral neuropathy (HC) One pill at bedtime by mouth for neuropathy. Increase to 2 pills after 5 days if not improving. 60 capsule 12 06/12/20 16 Active ferrous sulfate 325 mg delayed release tabletIndications :Iron deficiency anemia, unspecified Take 1 tablet by mouth once daily with a meal. 90 tablet 4 06/12/20 16 Active fluconazole (DIFLUCAN) 150 mg tabletIndications :Vaginal itching One pill by mouth today, repeat on friday 2 tablet 1 02/01/20 17 Active blood sugar diagnostic (GLUCOCARD 01 SENSOR PLUS) stripIndications: Insulin dependent type 2 diabetes mellitus, uncontrolled As directed. Dispense test strips covered by the patient insurance. Test 3 times per day. 100 Each 4 02/13/20 17 Active lisinopril (PRINIVIL; ZESTRIL) 20 mg tabletIndications :Uncontrolled hypertension Take 1 tablet by mouth once daily. 90 tablet 4 02/13/20 17 Active metFORMIN (GLUCOPHAGE) 1,000 mg tabletIndications :DM (diabetes mellitus) with complications (HC) Take 1 tablet by mouth 2 times daily with meals. 180 tablet 3 02/13/20 17 Active insulin NPH human recomb (NOVOLIN N) 100 unit/mL susp injectionIndicati ons:DM (diabetes mellitus) with complications (HC) 20-25 units at breakfast and 35-40 units at dinner. Adjust per clinic instructions 2 Vial 20 02/13/20 17 Active rosuvastatin (CRESTOR) 10 mg tablet Take 1 tablet by mouth at bedtime. 90 tablet 3 02/26/20 17 Active Active Problems Problem Noted Date Diagnosed Date Hyperlipidemia, unspecified 03/16/2016 Diabetic peripheral neuropathy 03/16/2016 Major depression in partial remission 10/25/2008 Unspecified essential hypertension 10/14/2006 DIABETES TYPE II WITH COMPLICATION 08/25/2002 Immunizations Immunization Administration Dates Next Due HepA-HepB (Twinrix) 09/17/2013 [...] drink = 0.6 oz pur e alcohol) Comments No Sex and Gender Information Value Date Recorded Sex Assigned at Not on file Legal Sex Female 5:40 AM COMMUNITY MIDWIFE Gender Identity Not on file Sexual Orientation Not on file 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 Not on file Not on file Not on file Obstetrics History Para Term [...] age 15-65 1984 Hepatitis C screening for ag e 18-79 1987 Colonoscopy through age 75 2014 BMI (ht and wt on same day) for age 18+ 01/31/2018 01/31/2017, 11/27/2016, 08/28/2016, Additional history exists Depression screening for age 12+ 01/31/2018 02/01/20 17, 01/12/2016 Pneumococcal series for age 50+ (1 of 1 - PCV) 2019 Zoster (shingles) series for age 50+ (1 of 2) 2019 Mammogram for age 45-75 02/13/2022 02/14/20 21, 01/31/2017, 01/19/2016, Additional history exists COVID-19 vaccine series ( - 2023- season) 2024 Influenza Vaccine (#1) 2024 3, 04/20/2010, 07/11/2009 Pap test for age 21-65 08/01/2026 4, 08/01/2023, 01/17/2021, Additional history exists Tetanus booster 01/31/2027 01/31/2017, 05/22/2007 Lipids for age 45-75 02/06/2027 02/06/2022, 06/10/2016, 02/27/2015, Additional history exists Tdap Completed 01/31/2017 Procedures Procedure Name Priority Date/Time Associated Diagnosis Comments ROUTE AIDE THIN PREP PAP SCREEN IMAGED Routine 08/01/2023 12:00 PM COMMUNITY MIDWIFE LIPID PANEL Routine 02/06/2022 4:34 PM CDT SCAN-MAMMOGRAPHY REPORT 02/13/2021 12:00 AM CDT from Last 3 Months or Most Recently Relevant to Health Maintenance Results * ROUTE AIDE THIN PREP PAP SCREEN IMAGED (08/01/2023 12:00 PM COMMUNITY MIDWIFE) Case Report Gynecologic Cytology Report Case: [id number] Authorizing Provider: Susanne Price PA-C Collected: 08/01/2023 1200 Ordering Location: [facility] Received: 08/04/2023 1050 First Screen: Ayde Plasencia Specimen: ROUTE AIDE ThinPrep Vial Screening, Cervical 08/11/2023 4:11 PM [facility]UNITY MID[facility] INTERPRETATION/ RESULT NEGATIVE FOR INTRAEPITHELIAL LESION OR MALIGNANCY (NIL) (none) 08/11/2023 4:11 PM COMMUNITY MIDWIFE [facility] IMEN ADEQUACY Satisfactory for evaluation Endocervical component present 08/11/2023 4:11 PM COMMUNITY MIDWIFE [facility] HPV REQUEST HPV and PAP 08/11/2023 4:11 PM COMMUNITY MIDWIFE [facility] Date of LMP 08/11/2023 4:11 PM COMMUNITY MIDWIFE [facility] Comment:unk Last Pap Date 08/11/2023 4:11 PM COMMUNITY MIDWIFE [facility] Comment:unk Last Pap Result 4:11 PM COMMUNITY MIDWIFE [facility] Comment:unk Abnormal Pap or [place] Bx in last 5 years No 08/11/2023 4:11 PM COMMUNITY MIDWIFE [facility] Menstrual Status Perimenopausal 08/11/2023 4:11 PM COMMUNITY MIDWIFE [facility] [place] Bx Done Today No 08/11/2023 4:11 PM COMMUNITY MIDWIFE [facility] Additional Information 08/11/2023 4:11 PM COMMUNITY MIDWIFE [facility] Comment: [facility] at [facility] - [address], [place] [address] Automated Review Successful 08/11/2023 4:11 PM COMMUNITY MIDWIFE [facility] Comment:Specimen processed s uccessfully by automated research and development tester device, ThinPrep Imaging System, [employer] ANCILLARY TESTING ROUTE AIDE HPV Ordered, Please see separate report 08/11/2023 4:11 PM COMMUNITY MIDWIFE [facility] Note The pap test is a screening technique, not a diagnostic procedure. It is used primarily to screen for squamous cancers and precursor lesions. Published studies have shown that it is subject to both false negative and false positive results. The pap test should not be used as the sole means to diagnose or exclude pre-malignant and malignant lesions. 08/11/2023 4:11 PM COMMUNITY MIDWIFE [facility] Other (Cervical) 08/01/2023 12:00 PM COMMUNITY MIDWIFE 08/04/2023 5:38 PM COMMUNITY MIDWIFE october Albert SCOTT PATHOLOGY/CYTOLOGY Final R esult [facility] [address] [place] [address], [place] * LIPID PANEL (02/06/2022 4:34 PM CDT) CHOLESTEROL,TOTAL 142 100 - 199 mg/dL 02/07/2022 10:45 AM [facility] TRIGLYCERIDES 109 <150 mg/dL 02/07/2022 10:45 AM [facility] HDL CHOLESTEROL 44 >40 mg/dL 10:45 AM [facility] NON-HDL CHOLESTEROL 98 <145 mg/dl 02/07/2022 10:45 AM [facility] CHOL/HDL RATIO 3.23 <4.50 02/07/2022 10:45 AM [facility] LDL CHOLESTEROL 76 <=130 mg/dL 02/07/2022 10:45 AM [facility] VLDL CHOLESTEROL 22 <=30 mg/dL 02/07/2022 10:45 AM [facility] PROVIDER ORDERED STATUS RANDOM 02/07/2022 10:45 AM [facility] Blood BLOOD SPECIMEN / Unknown 02/06/2022 4:34 PM CDT 02/07/2022 10:02 AM CDT us Erwin Brown MD CHEMISTRY Final Result [facility] [address] [place] [address] * SCAN-MAMMOGRAPHY REPORT (02/13/2021 12:00 AM CDT) Anatomical Region Laterality Modality Other us Scanner OTHER Final Result from Last 3 Months or Most Recently Relevant to Health Maintenance Insurance Graine de Cadeaux
--- OUTSIDE RECORDS SUMMARY | 2024-10-11 20:32 | XMS_ITS | Data Portability ---
Author Organization [facility] OFF[facility] Address [address] [place] [address] [place] [address] Assessment No assessment recorded. Plan of Treatment Reminders Order Date Submit Date Provider Last Modified By Organization Details Last Modified Time Details Appointments None recorded. Lab CBC [address]- Lab, [address] [place], [address], 3 12:00:35 CMP, serum or plasma [address]- Lab, [address] [place], [address], 3 11:59:56 lipid panel, serum [address]- Lab, [address] [place], [address], 3 11:59:57 microalbum in/creatin ine, mass ratio, urine [address]- Lab, [address] [place], [address], 3 11:59:57 hemoglobin A1C/hemogl obin total, QN, blood [address]- Lab, [address] [place], [address], 3 11:59:57 urinalysis , complete 2021 022 [facility]- Lab, [address] [place], [address], 2 17:06:35 Referral None recorded. Procedures None recorded. Surgeries None recorded. Imaging RF, colon, w/ air, w/ contrast GA 2021 022 [facility] Radiology Department, [address] [place], [address], 3 13:04:43 US, duplex, venous, lower extremity, unilateral - left only 2021 022 [facility] Radiology Department, [address] [place], [address], 2 14:05:58 Medication Orders glyburide 5 mg tablet 2022 023 [facility], [address] [place] [address], [address], 3 14:12:18 triamcinol one acetonide 0.5 % topical cream 2022 023 [facility], [address] [place] [address], [address], 3 14:12:27 metformin 1,000 mg tablet 2022 023 [facility], [address] [place], [address], 3 17:12:06 gabapentin 100 mg capsule 2022 023 [facility], [address] [place] [address], [address], 3 14:12:10 lisinopril 40 mg tablet 2022 023 [facility], [address] [place] [address], [address], 3 14:12:36 ergocalcif julieta (vitamin D2) 1,250 mcg (50,000 unit) capsule [address], [address], 3 18:55:20 hydrochlor othiazide 25 mg tablet [address], [address], 3 18:55:21 hydrochlor othiazide 25 mg tablet [address], [address], 3 10:58:54 triamcinol one acetonide 0.5 % topical cream [address], [address], 3 10:59:53 glyburide 5 mg tablet [address], [address], 2 17:40:42 amitriptyl ine 25 mg tablet [address], [address], 2 18:50:03 lisinopril 40 mg tablet [address], [address], 2 16:17:36 ergocalcif julieta (vitamin D2) 1,250 mcg (50,000 unit) capsule [address], [place], [address], 18:52:42 Patient TargetsNo targets recorded. Patient Instructions Encounter Date Encounter Id Patient Instructions Last Modified By Organization Details Last Modified Time 04/30/2022 [id number] eat regularly, try to get glucose to 120 ezra Not available 05/01/2022 16:14:55 05/14/2022 [id number] watch for drowsiness, dry mouth and constipation with meds, calland leave message about any side effects ezra Not available 05/15/2022 11:21:19 UTI treated, needs f/u question ezra Not available 05/16/2022 12:45:40 05/21/2022 [id number] watch for drowsiness with meds, glucose and BP need improvement after BE ezra Not available 05/23/2022 09:59:38 check on BETHANY ezra Not available 18:12:15 07/23/2022 [id number] use cream twice a day on leg ezra Not available 07/29/2022 13:51:21 need to follow u p on stress ezra Not available 07/29/2022 13:51:41 09/10/2022 [id number] watch for low glucose on days when you are active at work, we are watching your blood pressure and more medicine might be needed ezra Not available 09/11/2022 11:28:50 Reason for Referral None Reported. Results Created Date Observation Date Name Description Value Unit Range Abnormal Flag Note LastModifiedBy Organization Detail LastModifiedTime 05/14/20 22 05/14/2022 H pylor i Ag, stool TSH 1.160 Not Available [facility]- Lab [address] [place], [address], 05/20/2022 12:36:23 05/14/20 22 05/14/2022 TSH, serum or plasm a TSH 1.160 Not Available [facility] Lab [address] [place], [address], 05/20/2022 12:36:23 05/14/20 22 05/14/2022 fecal occul t blood , stool TSH 1.160 Not Available [facility] Lab [address] [place], [address], 05/20/2022 12:36:23 05/14/20 22 05/14/2022 urina lysis , compl ete TSH 1.160 Not Available [facility]- Lab [address] [place], [address], 05/17/2022 15:38:26 04/01/20 22 04/01/2022 US, abdom en No observ ation record ed. [facility] Radiology Department [address] [place], [address], 04/02/2022 17:18:01 05/17/20 22 05/17/2022 US, duple x, venou s, lower extre mity, unila teral No observ ation record ed. [facility] Radiology Department [address] [place], [address], 05/21/2022 08:20:31 08/16/19 23 08/16/2022 RF, colon , w/ air, w/ contr ast [place] No observ ation record ed. [facility] Radiology Department [address] [place], [address], 08/19/2022 14:10:21 Result Notes None recorded. Problems Name Problem SNOMED Code Status Onset Date Resolution Date Notes Provider Name and Address Organization Details Recorded Time Microalbuminu sintia 623253332 Active 2020 Erwin Brown MD [address] [place], [address], [employer] 2 16:04:27 Depressive disorder 56472643 Active 2020 Rebecca Scott NP [address] [place], [address], [employer] [facility] 1 12:11:39 Vitamin D deficiency 87912007 Active 2020 Rebecca Scott NP [address] [place], [address], [place] [facility] 1 12:11:50 Systolic murmur 04734213 Active 2020 [place] [address] [place] [address], [address], [facility] 1 12:11:58 Lichen simplex chronicus 27469263 Active 2020 [place] [address] [place] [address], [address], [facility] 1 12:12:23 Ligation of bilateral fallopian tubes Active 2020 [place] [address] [place] [address], [address], [facility] 1 12:12:38 Essential hypertension 95031329 Active 2021 [place] [address] [place] [address], [address], [facility] 2 11:17:21 Uncontrolled type 2 diabetes mellitus 323043642 Active 2022 Erwin Brown MD [address] [place] [address], [address], [facility] 3 19:32:06 Problem Notes None recorded. Procedures Surgical History Date Name Laterality Status Provider Name and Address Organization Details Recorded Time 01/18/20 18 Date of Last Pap Smear completed Rebecca Scott NP [address] [place], [address], [facility] 01/17/2021 16:30:52 01/18/20 18 Date of Last Mammogram completed Rebecca Scott NP [address] [place], [address], [facility] 01/17/2021 16:31:08 07/14/19 06 Cholecystectomy completed Rebecca Scott NP [address] [place], [address], [facility] 01/17/2021 16:23:25 ligation of bilateral fallopian tubes completed Rebecca Scott, ORA [address] [place], [address], [place] [facility] 01/17/2021 12:12:50 delivery completed Loretta Scott, ADMIN ASSISTANT [address] [place], [address], [place] [facility] 01/17/2021 12:12:57 Imaging Results Imaging Date Name Status LastModified by Organiz ation Details LastModified Time 04/01/2022 US, abdomen completed [facility] Radiology Department [address] [place], [address], 04/02/2022 17:18:01 05/17/2022 US, duplex, venous, lower extremity, unilateral completed [facility] Radiology Department [address] [place], [address], 05/21/2022 08:20:31 08/16/2022 RF, colon, w/ air, w/ contrast [place] completed [facility] Radiology Department [address] [place], [address], 08/19/2022 14:10:21 Procedure Notes None recorded. Medical [...] and Address Organization Details Last Updated DateTime 2 149.86 cm 24.8 kg/m2 61569.8 6 g 91 /min 184 mm[Hg] 91 mm[Hg] Dione Magaña [facility] [employer] [facility] 2 18:40:56 Date Recorded Body height Body mass index (BMI) Body weight Systolic blood pressure Diastolic blood pressure Provider Name and Address Organization Details Last Updated DateTime 05/14/2022 149.86 cm 25.6 kg/m2 45568.51 g 180 mm[Hg] 95 mm[Hg] Erwin Brown MD [address] [place], [address] [facility] [employer] [facility] 2 11:14:00 Date Recorded Body height Body mass index (BMI) Body weight Systolic blood pressure Diastolic blood pressure Provider Name and Address Organization Details Last Updated DateTime 07/23/2022 149.86 cm 25.4 kg/m2 24564.64 g 154 mm[Hg] 82 mm[Hg] Erwin Brown MD [address] [place], [address] [facility] [employer] [facility] 3 18:51:14 Date Recorded Body height Body mass index (BMI) Body weight Systolic blood pressure Diastolic blood pressure Provider Name and Address Organization Details Last Updated DateTime 09/10/2022 149.86 cm 26.9 kg/m2 29434.79 g 153 mm[Hg] 90 mm[Hg] Erwin Brown MD [address] [place], [address] [facility] [employer] 3 19:06:59 Social History Question Answer Notes LastModified by Organizat ion Details LastModified Time Tobacco Smoking Status Never Smoker Charissa lou [facility] [employer] 05/24/2020 19:49:06 What Is Your Level Of Alcohol Consumption? None [email or web address] Information not available 01/17/2021 Are You Currently Employed? Yes Information not available 03/14/2022 Who Is Your Employer? [employer] Information not available 03/14/2022 Do You Feel Safe At Home? Yes Information not available 03/14/2022 How Many Children Do You Have? 1 [email or web address] Information not available 04/30/2022 What Is Your Relationship Status? Single Information not available 04/30/2022 Sex: Unknown Functional Status None recorded. Mental Status None recorded. Family History Relationship Description Onset Age of this Age Resolved Age Notes LastModified by Organization Details LastModified Time Sister Cerebrovascu lar accident 56 56 [email or web address] Not available 01/2021 16:30:24 Notes:mother of unk cau se, father of [...] Encounter Closed Date Diagnosis/Indication Diagnosis SNOMED-CT Code Diagnosis ICD10 Code Diagnosis Note [id number] Clinton Prince MD [facility] [address] [place] [address] 05/02/2020 17:49:21 05/02/2020 20:47:05 Menopausal syndrome 391181999 N95.9 Type 2 peyton betes mellitus without complication 227027999 E11.9 [id number] Clinton Prince MD [facility] [address] [place] [address] 05/18/2020 18:03:12 05/18/2020 20:42:36 Diabetes mellitus 88001549 E11.9 Menopausal syndrome 1237 51571 N95.9 [id number] Luzma Snow MD [facility] [address] [place] [address] 05/24/2020 19:24:20 05/24/2020 20:25:52 Diabetes mellitus 92459063 E11.9 patient is eating healthier, taking meds consistent ly, FSBG all under 200 now, often 150-180. Menopausal syndrome 1237 53933 N95.9 frequent hot flashes. discussed home remedies, limitation s of rx treatment. recommend daily calcium with D. [id number] Mari Britton NP [facility] [address] [place] [address] 12/06/2020 17:04:00 12/06/2020 17:41:40 Uncontrolled type 2 diabetes mellitus 792081349 E11.65 Advised increasing Novolin 70/30 to 32 units BID. Keep 12/12 follow up. Statin also indicated. Microalbuminuria 3222971 06 R80.9 Reviewed with patient; described as stress on kidney. Suggest starting ACEI after we check her BP at her upcoming visit with Dr. Brown. [id number] Erwin Brown MD [facility] OFF[facility] [address] [place] [address] 12/12/2020 18:15:59 12/13/2020 12:37:55 Type 2 diabetes mellitus without complication 077343283 E11.9 needs to incr insulin and gradually improve control [id number] Rebecca Scott NP [facility] [address] [place] [address] 01/17/2021 16:04:43 01/17/2021 18:13:53 Screening for malignant neoplasm of cervix 158986370 Z12.4 Follow up pending results. If normal, repeat cotesting 5 years. Screening for malignant neoplasm of breast 747744607 Z12.39 Follow up pending mammogram results. Benign CBE. Screening for malignant neoplasm of colon 856031020 Z12.11 FOBT kit provided and explained to patient. Plans to return at visit 02/13/21. Essential hypertension 06882343 I10 BP elevated today. No record of BP medication but patient reports taking one daily. Plans to call us with name of medication . Type 2 peyton betes mellitus without complication 384779877 E11.9 Encouraged patient to increase insulin dosage by 1 unit in the AM and 1 unit in the PM every 2 days until she reaches goal sugars 100-135. Has follow up with Dr. Brown 02/13/21. Encouraged her to stop increasing insulin and call us if sugars ever <100 or signs/symp toms of hypoglycem ia. Burning of soles of feet likely related to increased blood sugars, but discussed the possibilit y of plantar fasciitis as well. Encouraged calf/plant ar stretches, applicatio n of ice for pain relief, and wearing supportive shoes. [id number] MD WARREN Tyson OFFICE [address] [place] [address] 02/13/2021 18:15:04 02/13/2021 18:53:56 Type 2 diabetes mellitus 54337756 E11.9 neuropathy mild MD WARR[facility] OFF[facility] [address] [place] [address] 04/03/2021 18:07:26 04/03/2021 18:38:52 Type 2 diabetes mellitus without complication 066092797 E11.9 no change in neuropathy , [place] [id number] MD HELEN TysonNIKOLAI Zee OFFICE [address] [place] [address] 06/26/2021 18:17:09 06/26/2021 18:57:41 Type 2 diabetes mellitus without complication 082364939 E11.9 no change in neuropathy , glucometer s high, increase insulin, check glucometer twice a week at 4 pm [id number] MD WARREN [facility] OFF[facility] [address] [place] [address] 08/07/2021 18:13:56 08/07/2021 18:47:43 Indigestion 012179178 R10.13 needs eval as well as meds [id number] MD HELEN TysonNIKOLAI Zee OFFICE [address] [place] [address] 10/16/2021 19:31:08 10/16/2021 19:54:21 Type 2 diabetes mellitus without complication 935134440 E11.9 needs bulk [id number] MD HELEN TysonNIKOLAI Zee OFFICE [address] [place] [address] 11/27/2021 18:30:22 11/27/2021 18:58:24 Type 2 diabetes mellitus without complication 034611883 E11.9 needs re eval [id number] Erwin Brown MD [facility] [address] [place] [address] 03/14/2022 09:58:30 03/14/2022 10:40:45 Type 2 diabetes mellitus without complication 643456503 E11.9 last HBA1C 13+, lipids 142/109- sm amt micro alb, she wants to try adding glyburide but might need incr in insulin which she has decr from a higher dose Essential hypertension 53884291 I10 in November BP 149/78, now 159/98, needs boost in med Indigestion 637233929 R1 0.13 needs follow up ultrasound because of hx of abn lft's Type 2 peyton betes mellitus 44203183 E11.9 neuropathy mild, gabapentin at bedtime should help Anemia 380037895 D64.9 stool negative, needs iron studies even though menopausal Right uppe r quadrant pain 256654737 R10.11 gb out, should follow up on problems reported from [place] [id number] MD [facility] [address] [place] [address] 04/30/2022 18:33:14 04/30/2022 19:16:25 Type 2 diabetes mellitus without complication 546285616 E11.9 last HBA1C 13+, lipids 142/109- sm amt micro alb, reported glucose remain high, today increase in glyburide. optometry september 2021, mammogram in 2020 Essential hypertension 37704187 I10 BP remains high and lisinopril increased [id number] MD WARREN Tyson OFFICE [address] [place] [address] 05/14/2022 18:03:25 05/14/2022 18:35:46 Pain of left calf 3782178434 144202 M79.662 unusual for neuropathy , need to r/o thrombophl ebitis and rx discomfort , will need more attention to hypertensi on and diabetes when current prob addressed Bereavement 91355508 Z63 .4 effect of 's unclear [id number] MD W[facility] [address] [place] [address] 05/21/2022 17:33:26 05/21/2022 18:12:55 Acute urinary tract infection 786320412 N39.0 mild dysuria, needs to finish antibiotic Colorectal cancer detected by DNA-based stool screening 253666620 R19.5 has been constipate d in past, no melena Type 2 peyton betes mellitus without complication 922376271 E11.9 last HBA1C 13+, lipids 142/109- sm amt micro alb, reported glucose remain 130 in am and 185 later, forgot about optometry this year, mammogram in 2020, aching in leg is better Essential hypertension 08847899 I10 BP improved at140/83 and should continue to fall Type 2 peyton betes mellitus 66646796 E11.9 80501 Erwin Brown MD [facility] [address] [place] [address] 07/23/2022 18:31:45 07/23/2022 18:57:51 Type 2 diabetes mellitus without complication 652295675 E11.9 last HBA1C 13+, lipids 142/109- sm amt micro alb, reported glucose remain 130 in am and 185 later, doesn't need much insulin, prefers oral meds, might be able to decrease dose, lab after colon eval done, forgot about optometry this year, mammogram in 2020, rash could be diabetic dermopathy Essential hypertension 32290618 I10 no cough or dizziness from lisinopril , control needs to improve, add HCTZ Colorectal cancer detected by DNA-based stool screening 837772410 R19.5 reschedule d colon exam [id number] Erwin Brown MD [facility] [address] [place] [address] 09/10/2022 18:11:37 09/10/2022 18:58:06 Uncontrolled type 2 diabetes mellitus 252815782 E11.65 compliance with meds is good, weight is also good, adjusts evening insulin depending on evening glucometer , her reported values are better that last year's lab and needs follow up lab Essential hypertension 42366997 I10 cough is mild, needs incr in meds if BP above 130/80 next visit Type 2 peyton betes mellitus without complication 230386386 E11.9 probably has mild neuropathy , last HBA1C 13+, lipids 142/109- sm amt micro alb, reported glucose remain 130 in am and 185 later, doesn't need much insulin, forgot about optometry this year, mammogram in 2020 Type 2 peyton betes mellitus 19675492 E11.9 Stool finding 786983817 R19.5 barium enema normal which was done because stool was positive Health Concerns Section Related Observation LastModified by Organization Johnnie moran LastModified Time None Recorded Concern Status LastModified by Organization Details LastModified Time None Recorded Advance Directives Directive None Recorded Payers Encounter Date Sequence Insurance Name Policy Number Policy Flores Covered Member ID Flores Member ID Guarantor Name 04/30/2022 SLIDING FEE SCHEDULE - DISCOUNT Kenia Herron Locke 05/14/2022 SLIDING FEE SCHEDULE - DISCOUNT Kenia Herron Locke 05/21/2022 SLIDING FEE SCHEDULE - DISCOUNT Kenia Herron Locke 07/23/2022 SLIDING FEE SCHEDULE - DISCOUNT Kenia Herron Locke 09/10/2022 SLIDING FEE SCHEDULE - DISCOUNT Kenia Herron Locke OBGyn Episode No OBEpisode recorded.
[2024-10-11 20:33] VITALS: BP 178/94; PULSE 117; RESP 16; TEMP 35.9; O2SAT 98; BMI 25.6
--- NOTE | 2024-10-11 20:51 | ED_ITS ---
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 She was seen yesterday in urgent care with sore throat and strep was positive. She was started on amoxicillin. After starting the antibiotic she says she started vomiting. She has diffuse abdominal pain, has not had any diarrhea. She says she has not been able to keep anything down since then. She does have insulin- dependent type 2 diabetes. She has not had fevers and her throat no longer sarah ts. No reported fevers. Other medical history reviewed and notable for recurrent UTI, cholecystectomy. Related Data Home Medications ?Medication ?Instructions ?Recorded ?Confirmed amlodipine 10 mg tablet 10 mg PO DAILY 07/13/24 10/11/24 glyburide 5 mg tablet 5 mg PO DAILY 07/13/24 10/11/24 aspirin 81 mg tablet,delayed 81 mg PO HS 07/14/24 10/11/24 release gabapentin 300 mg capsule 600 mg PO HS 07/14/24 10/11/24 Previous Rx's ?Medication ?Instructions ?Recorded insulin NPH-regular 70-30 U-100 45 unit (0.45 mL) subcut BID #60 mL 02/17/24 insulin 100 unit/mL subcutaneous pen (Novolin 70-30 FlexPen U-100 Insulin) blood-glucose meter (Accu-Chek #1 ea 06/17/24 Guide Glucose Meter) ergocalciferol (vitamin D2) 1,250 1,250 mcg PO QWEEK #13 caps 06/17/24 mcg (50,000 unit) capsule lancets (Accu-Chek Softclix #100 ea 06/17/24 Lancets) lisinopril 40 mg tablet 40 mg PO QDAY #90 tabs 06/17/24 metformin 1,000 mg tablet 1,000 mg PO BIDWMEAL #180 tabs 06/17/24 naproxen 500 mg tablet 500 mg PO BID #180 tabs 06/17/24 pen needle, diabetic 31 gauge x #100 ea 06/17/24/ (CareTouch Pen Needle) blood sugar diagnostic (Blood #360 ea 06/25/24 Glucose Test strips) blood pressure monitor #1 ea 06/28/24 amoxicillin 500 mg tablet 500 mg PO BID 10 days #20 tabs 10/10/24 Allergies Allergy/AdvReac Type Severity Reaction Status Date / Time No Known Drug Allergies Allergy Verified 10/10/24 11:34 Review of Systems Status of ROS: Reports: 6 or more systems reviewed and unremarkable except as noted in History and below [facility] History Diabetes ?E11.9 - Type 2 diabetes mellitus without complications (ICD-10) Diabetic neuropathy ?E11.40 - Type 2 diabetes mellitus with diabetic neuropathy, unspecified (ICD-10) Recurrent UTI ?N39.0 - Urinary tract infection, site not specified (ICD-10) Anemia ?D64.9 - Anemia, unspecified (ICD-10) COVID-19 ?U07.1 - COVID-19 (ICD-10) Mixed hyperlipidemia ?E78.2 - Mixed hyperlipidemia (ICD-10) Type 2 diabetes mellitus, with long-term current use of insulin ?E11.9 - Type 2 diabetes mellitus without complications (ICD-10) ?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 (ICD-10) Primary hypertension ?I10 - Essential (primary) hypertension (ICD-10) Hawkins-Walker grade 2 cystocele ?N81.10 - Cystocele, unspecified (ICD-10) Depression ?F32.A - Depression, unspecified (ICD-10) Vitamin D deficiency ?E55.9 - Vitamin D deficiency, unspecified (ICD-10) Surgical History History of vaginal delivery History of 2 sections ?Z98.891 - History of uterine scar from previous surgery (ICD-10) History of tubal ligation (2006) ?Z98.51 - Tubal ligation status (ICD-10) Hx laparoscopic cholecystectomy (04/25/05) ?Z90.49 - Acquired absence of other specified parts of digestive tract (ICD- 10) Family History Father Liver disease Alcohol dependence Brother Diabetes Mother Diabetes Son Family history of testicular cancer, Onset Age: 26 Other No family history of breast cancer No family history of colorectal cancer Social History Narrative: , three kids, 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 [employer], nonsmoker, no EtOH What is your current living situation?: I presently have a place to live Problems where you live: no known problems Problems where you live details: NA mobile home In the past 12 months, utilities in danger of being shut off: no In past 12 months, lack of transportation kept you from medical appts, meetings, work, or getting things needed for daily living: no In the past 12 mos, have been you worried that your food would run out before you had money to buy more?: often true In the past 12 mos, the food you bought just didn't last and you didn't have money to buy more?: often true Highest level of school completed/degree received: 3rd grade Smoking Status: Never smoker Do you use any of these nicotine containing products: None Second hand tobacco smoke exposure: No How often do you have a drink containing alcohol: never AUDIT-C Alcohol total score: 0 Non-prescribed substance use: denies use Caffeine: Yes (coffee) How often does anyone, including family, friends and others, physically hurt you : never How often does anyone, including family, friends and others, insult or talk down to you: never How often does anyone, including family, friends and others, threaten you with harm: never How often does anyone, including family, friends and others, scream or curse at you: never service: No Health Related Social Needs: food insecurity (Z59.41) Exam Narrative: Exam Narrative: Vital signs reviewed In general, alert, nontoxic mid age woman. She smells ketotic. Head: Normocephalic, atraumatic. Eyes: Sclera clear. Pupils equal and reactive. ENT: Mucous membranes moist. Erythematous tonsils without exudate or edema. Neck: Supple without adenopathy. Heart: Tachycardic and regular. Lungs: Clear. No increased work of breathing, crackles or wheezes. Abdomen: Soft, nondistended. Diffuse mild tenderness palpation without rebound guarding or rigidity. Extremities: Well perfused, pulses intact. No significant edema. Neurologic: Alert, conversant. Speech fluent, face symmetric. Moves all extremities equally. Gait stable. Skin: Warm, dry well perfused. Affect: Normal. Const: Vital Signs, click to edit/add: Vital Signs - 24 hr 10/11/24 20:33 Temperature 96.7 F L Pulse Rate [Pulse Oximeter] 117 H Respiratory Rate 16 Blood Pressure [Ri ght Upper Arm] 178/94 H Pulse Oximetry 98 Oxygen Delivery Me thod Room Air Course Course ED Course: Given the timing of this it is possible the vomiting is related to the strep throat or the amoxicillin, other diagnostic possibilities would be a con commitment viral gastroenteritis, bowel obstruction, gastritis, among others. Abdominal exam is benign and nonfocal, I doubt an acute surgical process such as appendicitis. She does smell ketotic, will evaluate for nonketotic hyperosmolar state versus DKA, dehydration, metabolic derangement. Normal saline ordered, she would be interested in doing a shot of Bicillin so that she does not have to take further amoxicillin at home. Will also give Zofran here. No further emesis noted after Zofran here. Labs reviewed. White blood cell count is 15.5, with a left shift with 89% neutrophils. Venous gas shows a mild decompensated metabolic acidosis with a pH of 7.3, bicarb of 15 and pCO2 31. Metabolic panel is notable for a CO2 of 13, a gap of 21, BUN 46, normal creatinine of 0.9. Blood sugars elevated at 566, lactate is mildly 52. LFTs are unremarkable. CRP is pending. Lipase is normal. Urinalysis also pending at this time, she does have a history of recurrent UTI but does not have specific urinary symptoms tonight, no fevers or flank pain. At this time I do not have any specific reason to be concerned about UTI or pyelonephritis but will see how the urine looks. Given that she has ketones on her breath I suspect the urine will be positive for ketones as well. With metabolic acidosis and increased gap I do think she has mild DKA. Recommended admission to the hospital. She completed her L of normal saline, I have ordered a L of lactated Ringer's 1000 mL over 2 hours. I also ordered 10 units of subcu regular insulin. Potassium is normal at 5. Case discussed with Dr. Herrera, who recommends admission to the medical floor, will see if she improves with fluids and subcu insulin 1st. She is agreeable with that plan. Vital Signs Vital signs: Initial Vital Signs Temperature 96.7 F L 10/11/24 20:33 Temperature Source Temporal Artery Scan 10/11/24 20:33 Pulse Rate 117 H 10/11/24 20:33 Respiratory Rate 16 10/11/24 20:33 Blood Pressure 178/94 H 10/11/24 20:33 Blood Pressure Mean 122 H 10/11/24 20:33 Blood Pressure Position Sitting 10/11/24 20:33 Pulse Oximetry 98 10/11/24 20:33 Oxygen Delivery Method Room Air 10/11/24 20:33 Vital Signs Temperature 96.7 F L 10/11/24 20:33 Pulse Rate 117 H 10/11/24 20:33 Respiratory Rate 16 10/11/24 20:33 Blood Pressure 178/94 H 10/11/24 20:33 Pulse Oximetry 98 10/11/24 20:33 Oxygen Delivery Method Room Air 10/11/24 20:33 Temperature 96.7 F L 10/11/24 20:33 Pulse Rate 117 H 10/11/24 20:33 Respiratory Rate 16 10/11/24 20:33 Blood Pressure 178/94 H 10/11/24 20:33 Pulse Oximetry 98 10/11/24 20:33 Oxygen Delivery Method Room Air 10/11/24 20:33 Medications Administered Medications: Discontinued Medications Generic Name Dose Route Start Last Admin Trade Name Freq PRN Reason Stop Dose Admin Sodium Chloride 1,000 mls @ 1,000 mls/hr 10/11/24 21:00 10/11/24 21:01 0.9 % Sodium Chloride 1000 Ml IV 10/11/24 21:59 1,000 mls/hr .Q1H ENRIQUE Administration Ondansetron HCl 4 mg 10/11/24 20:48 10/11/24 21:01 Ondansetron 2 Mg/Ml Inj IVP 10/11/24 20:49 4 mg ONCE ONE Administration Penicillin G Benzathine 1,200,000 unit 10/11/24 20:53 10/11/24 21:18 Penicillin G Benzathine 1,200,000 Unit/2 Ml Inj IM 10/11/24 20:54 1,200,000 unit ONCE ONE Administration Medical Decision Making Lab Data Lab results reviewed: Yes I reviewed the patient's lab results Labs: Lab Results 10/11/24 Range/Units 21:05 WBC 15.53 H (4.50-11.00) K/uL RBC 5.08 (4.00-5.20) m/uL Hgb 14.3 (12.0-16.0) gm/dL Hct 42.6 (33.0-51.0) % MCV 84 (80-100) fL MCH 28 (26-34) pg MCHC 34 (32-36) gm/dL RDW Coeff of Ansley 13.4 (11.5-15.5) % Plt Count 335 (140-440) K/uL Neut % (Auto) 88.8 H (42.0-72.0) % Lymph % (Auto) 7.3 L (20-44) % Maury % (Auto) 3.2 (0.0-11.0) % Eos % (Auto) 0.0 (0.0-7.0) % Baso % (Auto) 0.1 (0.0-3.0) % Neut # (Auto) 13.80 H (1.7-7.0) K/uL Lymph # (Auto) 1.10 (0.90-2.90) K/uL Maury # (Auto) 0.50 (0.00-0.90) K/UL Eos # (Auto) 0.00 (0.00-0.50) K/uL Baso # (Auto) 0.00 (0.00-0.30) K/uL Abs Immat Gran (auto) 0.10 (0.00-0.30) K/uL Imm/Tot Granulo (auto) 0.6 % VBG pH 7.307 L (7.32-7.43) VBG pCO2 31 L (40-50) mmHG VBG pO2 34.6 (25-47) mmHG VBG HCO3 15 L (21-28) mmol/L Sodium 136 (135-149) mmol/L Potassium 5.0 (3.6-5.1) mmol/L Chloride 102 (96-114) mmol/L Carbon Dioxide 13 L (20-32) mmol/L Anion Gap 21 H (7-15) mEq/L BUN 46 H (7-30) mg/dL Creatinine 0.9 (0.5-1.5) mg/dL Estimated Creat Clear 55.86 Estimated GFR 76 ml/min Glucose 566 H* (60-115) mg/dL Lactate 2.0 H (0.5-1.9) mmol/L Calcium 9.7 (8.4-10.6) mg/dL Total Bilirubin 0.6 (0.1-1.5) mg/dL Direct Bilirubin 0.5 (0.0-0.5) mg/dL AST 23 (12-35) U/L ALT 25 (4-35) U/L Alkaline Phosphatase 122 (40-150) U/L Total Protein 8.1 (6.0-8.3) g/dL Albumin 4.4 (3.3-5.0) g/dL Lipase 50 (23-300) U/L Discharge Plan Discharge Clinical Impression: Diabetic ketoacidosis, Strep throat Patient Disposition: Admitted As Observation
[2024-10-11] MEDS: 0.9 % SODIUM CHLORIDE 1000 ml 1,000 ML IV (21:01)
[2024-10-11] MEDS: ONDANSETRON 2 MG/ML inj 4 MG IVP (21:01)
[2024-10-11 21:09] LABS: HCO3 VBG 15 mmol/L (21-28); PCO2 VBG 31 mmHG (40-50); PO2 VBG 34.6 mmHG (25-47); pH VBG 7.307 (7.32-7.43)
[2024-10-11 21:16] LABS: Basophils Percent Auto 0.1 % (0.0-3.0); Hematocrit 42.6 % (33.0-51.0); Hemoglobin* 14.3 gm/dL (12.0-16.0); Immature Granulocytes Pct Auto 0.6 %; Lymphocytes Percent Auto 7.3 % (20-44); Mean Corpuscular HGB Conc 34 gm/dL (32-36); Mean Corpuscular Hemoglobin 28 pg (26-34); Mean Corpuscular Volume 84 fL (80-100); Monocytes Percent Auto 3.2 % (0.0-11.0); Neutrophils Percent Auto 88.8 % (42.0-72.0); Platelet Count* 335 K/uL (140-440); RDW Coefficient of Variation % 13.4 % (11.5-15.5); Red Blood Count 5.08 m/uL (4.00-5.20); White Blood Count* 15.53 K/uL (4.50-11.00)
[2024-10-11] MEDS: PENICILLIN G BENZATHINE 1,200,000 UNIT/2 ML inj 1200000 UNIT IM (21:18)
[2024-10-11 21:19] LABS: Slide Review Reflex No
--- OUTSIDE RECORDS SUMMARY | 2024-10-11 21:27 | XMS_ITS | Clinical Summary ---
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 Gender Identity Not on file Sexual Orientation [...] Procedure Name Priority Date/Time Associated Diagnosis Comments RESOURCE PARAPROFESSIONAL THIN PREP PAP SCREEN IMAGED Routine 08/01/2023 12:00 PM BACKWINDER LIPID PANEL Routine 02/06/2022 4:34 PM CDT SCAN-MAMMOGRAPHY REPORT 02/13/2021 12:00 AM CDT from Last 3 Months or Most Recently Relevant to Health Maintenance Results * RESOURCE PARAPROFESSIONAL THIN PREP PAP SCREEN IMAGED (08/01/2023 12:00 PM BACKWINDER) Case Report Gynecologic Cytology Report Case: [id number] Authorizing Provider: Susanne Price PA-C Collected: 08/01/2023 1200 Ordering Location: [facility] Received: 08/04/2023 4345 First Screen: Ayde Plasencia Specimen: RESOURCE PARAPROFESSIONAL ThinPrep Vial Screening, Cervical 08/11/2023 4:11 PM [facility] INTERPRETATION/ RESULT NEGATIVE FOR INTRAEPITHELIAL LESION OR MALIGNANCY (NIL) (none) 08/11/2023 4:11 PM BACKWINDER [facility] [employer] [facility] IMEN ADEQUACY Satisfactory for evaluation Endocervical component present 08/11/2023 4:11 PM BACKWINDER [facility] [employer] [facility] HPV REQUEST HPV and PAP 08/11/2023 4:11 PM BACKWINDER [facility] [facility] Date of LMP 08/11/2023 4:11 PM BACKWINDER [facility] [facility] Comment:unk Last Pap Date 08/11/2023 4:11 PM BACKWINDER [facility] [employer] [facility] Comment:unk Last Pap Result 4:11 PM BACKWINDER [facility] Comment:unk Abnormal Pap or [place] Bx in last 5 years No 08/11/2023 4:11 PM BACKWINDER [facility] [employer] [facility] Menstrual Status Perimenopausal 08/11/2023 4:11 PM BACKWINDER [facility] [facility] [place] Bx Done Today No 08/11/2023 4:11 PM BACKWINDER [facility] [employer] [facility] Additional Information 08/11/2023 4:11 PM BACKWINDER [facility] [employer] [facility] Comment: [facility] - [address], [place] [address] Automated Review Successful 08/11/2023 4:11 PM BACKWINDER [facility] [employer] [facility] Comment:Specimen processed s uccessfully by automated enterprise applications manager device, ThinPrep Imaging System, [employer] ANCILLARY TESTING RESOURCE PARAPROFESSIONAL HPV Ordered, Please see separate report 08/11/2023 4:11 PM BACKWINDER [facility] Note The pap test is a screening technique, not a diagnostic procedure. It is used primarily to screen for squamous cancers and precursor lesions. Published studies have shown that it is subject to both false negative and false positive results. The pap test should not be used as the sole means to diagnose or exclude pre-malignant and malignant lesions. 08/11/2023 4:11 PM BACKWINDER [facility] Other (Cervical) 08/01/2023 12:00 PM BACKWINDER 08/04/2023 5:38 PM BACKWINDER october Albert [facility] PATHOLOGY/CYTOLOGY Final R esult [facility] [address] [place] [address], [place] * LIPID PANEL (02/06/2022 4:34 PM CDT) CHOLESTEROL,TOTAL 142 100 - 199 mg/dL 02/07/2022 10:45 AM [facility] TRIGLYCERIDES 109 <150 mg/dL 02/07/2022 10:45 AM [facility] HDL CHOLESTEROL 44 >40 mg/dL 10:45 AM [facility] NON-HDL CHOLESTEROL 98 <145 mg/dl 02/07/2022 10:45 AM [facility] CHOL/HDL RATIO 3.23 <4.50 02/07/2022 10:45 AM [facility] LDL CHOLESTEROL 76 <=130 mg/dL 02/07/2022 10:45 AM [facility] VLDL CHOLESTEROL 22 <=30 mg/dL 02/07/2022 10:45 AM [facility] PROVIDER ORDERED STATUS RANDOM 02/07/2022 10:45 AM [facility] Blood BLOOD SPECIMEN / Unknown 02/06/2022 4:34 PM CDT 02/07/2022 10:02 AM CDT us Erwin Brown MD CHEMISTRY Final Result [facility] [address] [place] [address] * SCAN-MAMMOGRAPHY REPORT (02/13/2021 12:00 AM CDT) Anatomical Region Laterality Modality Other us Scanner OTHER Final Result from Last 3 Months or Most Recently Relevant to Health Maintenance Insurance [employer]
[2024-10-11 21:37] LABS: Albumin* 4.4 g/dL (3.3-5.0); Chloride* 102 mmol/L (96-114); Sodium* 136 mmol/L (135-149)
[2024-10-11 21:39] LABS: Blood Urea Nitrogen* 46 mg/dL (7-30); Creatinine* 0.9 mg/dL (0.5-1.5); Est. Creatinine Clearance* 55.86; Estimated Glomerular Filt Rate 76 ml/min
[2024-10-11 21:40] LABS: Alanine Aminotransferase* 25 U/L (4-35); Alkaline Phosphatase* 122 U/L (40-150); Anion Gap 21 mEq/L (7-15); Aspartate Amino Transferase* 23 U/L (12-35); Bilirubin Direct* 0.5 mg/dL (0.0-0.5); Bilirubin Total* 0.6 mg/dL (0.1-1.5); Calcium* 9.7 mg/dL (8.4-10.6); Carbon Dioxide* 13 mmol/L (20-32); Lipase* 50 U/L (23-300); Total Protein* 8.1 g/dL (6.0-8.3)
[2024-10-11 22:01] LABS: Appearance Urine Clear (Clear); Bilirubin Urine Negative (Negative); Blood Urine Trace-lysed (Negative); Color Urine Yellow (Yellow); Glucose Urine 2+ (Negative); Ketones Urine 4+ (Negative); Leukocyte Esterase Urine Negative (Negative); Nitrite Urine Negative (Negative); Protein Urine Trace (Negative); Urobilinogen Urine 0.2 (0.2-1.0); pH Urine 5.5 (5.0-8.5)
[2024-10-11 22:14] LABS: RBC Urine 0-2 (0-2); Squamous Epithelial Cell Urine Few (None-Few); WBC Urine 0-2 (0-5)
[2024-10-11] MEDS: INSULIN REGULAR, HUMAN 100 UNIT/ML VIAL 10 UNIT IVP (22:19)
[2024-10-11] MEDS: LACTATED RINGERS 1000 ML 1,000 ML 500 ML IV (22:21)
[2024-10-11 22:22] LABS: C Reactive Protein* 15.7 mg/dL (0.5-1.0); Glucose* 569 mg/dL (60-115)
[2024-10-11 22:23] VITALS: BP 196/87; PULSE 92; RESP 18; TEMP 36; O2SAT 99
--- NOTE | 2024-10-11 22:27 | CRLHL7_ITS ---
For Patients: As a result of the Century Cures Act, medical imaging exams and procedure reports are released immediately into your electronic medical record. You may view this report before your referring provider. If you have questions, please contact your health care provider. INDICATION: Epigastric pain, vomiting. TECHNIQUE: CT abdomen and pelvis acquired with 69 cc of Isovue 370 IV contrast. COMPARISON: CT abdomen and pelvis 07/12/2024. FINDINGS: Lower chest: Unremarkable. Liver: Unremarkable. Normal in size and attenuation. No suspicious masses. Gallbladder and bile ducts: Status post cholecystectomy. No abnormal biliary ductal dilatation. Pancreas: Unremarkable. No mass or inflammation. Spleen: Unremarkable. Normal in size. No masses. Adrenal glands: Unremarkable. No nodules. Kidneys: Bilateral areas of mild renal cortical thinning, likely sequela of previous insult. No stone, suspicious mass, or hydronephrosis. GI tract: Small duodenal diverticulum. Normal in caliber. No sign of mass or inflammation. Normal appendix. Vasculature: Normal caliber abdominal aorta with mild atherosclerotic calcification. Mesenteric arteries are patent. Lymph nodes: No lymphadenopathy. Peritoneum/Abdominal Wall: Unremarkable. No free air or significant free fluid. Pelvis: Bilateral tubal ligation clips. Prominent posterior fundal fibroid. Tiny focus of air within the bladder lumen. No bladder wall thickening. Bones: Unremarkable for age. IMPRESSION: 1. Tiny foci of air within the bladder lumen. Recommend correlation for recent instrumentation. Though no bladder wall thickening is visualized, infection is also in the differential. 2. Otherwise, no acute findings within the abdomen and pelvis. Please note that all CT scans at this facility use dose modulation, iterative reconstruction, and/or weight-based dosing when appropriate to reduce radiation dose to as low as reasonably achievable. Dictated by Wilbur Jeong MD @ 10/11/2024 11:12:01 PM (Electronically Signed)
[2024-10-11 22:55] VITALS: BP 188/91; PULSE 117; RESP 20; TEMP 36.6; O2SAT 100; BMI 25.2
--- NOTE | 2024-10-11 23:20 | PM.IMHP1 ---
Assessment and Plan Assessment and plan (1) Diabetic ketoacidosis: Problem comment: Type 2 diabetic on chronic insulin. 4+ ketones in the urine and metabolic acidosis with anion gap of 21 and CO2 of 13. Likely due to stopping insulin during current illness. Will hold metformin and glyburide and manage with sliding scale insulin and fluids. Status: Acute (2) Strep throat: Problem comment: Diagnosed in clinic October 10, started on amoxicillin, given benzathine penicillin on October 11 in the emergency department. Better. Status: Acute Plan 54-year-old female with poorly controlled diabetes mellitus not admitted to the hospital with type 2 diabetes with DKA and strep throat. She is admitted to the hospital for IV fluids, close monitoring and management of fluid and electrolytes and blood sugar. Total Time Spent Total Time Spent: Total time spent today is 80 minutes in coordination of care and discussing with patient and nursing staff ongoing management of diabetes and DKA Hospitalist- H&P: HPI History of Present Illness Date Seen: 10/11/24 Chief complaint: Vomiting Narrative: Kenia Locke is a 54 year old Italian-speaking female with poorly controlled diabetes mellitus presents with a 3 day history of epigastric abdominal pain and vomiting. She also reports some sore throat. Symptoms started on Friday. She has been unable to keep down food but has been able to keep down some liquids. Yesterday she was seen in clinic and diagnosed with strep throat. Started on amoxicillin yesterday. Due to her illness she stopped taking her insulin on Friday. She has continued to take her lisinopril and metformin and Naprosyn. History of a laparoscopic cholecystectomy. No other previous abdominal surgeries. No previous history of abdominal pain similar to this. She was hospitalized in July with nephrolithiasis and Gram-negative bacteremia with E coli. Hemoglobin A1c at that time was 10.0. Review of Systems Narrative: Patient reports generally feeling well until last Friday when she became ill as noted above. She is not aware of a fever. No respiratory illness. [facility] Medical History Diabetes ?E11.9 - Type 2 diabetes mellitus without complications (ICD-10) Diabetic neuropathy ?E11.40 - Type 2 diabetes mellitus with diabetic neuropathy, unspecified (ICD-10) Recurrent UTI ?N39.0 - Urinary tract infection, site not specified (ICD-10) Anemia ?D64.9 - Anemia, unspecified (ICD-10) COVID-19 ?U07.1 - COVID-19 (ICD-10) Mixed hyperlipidemia ?E78.2 - Mixed hyperlipidemia (ICD-10) Type 2 diabetes mellitus, with long-term current use of insulin ?E11.9 - Type 2 diabetes mellitus without complications (ICD-10) ?Z79.4 - detention (current) use of insulin (ICD-10) Primary hypertension ?I10 - Essential (primary) hypertension (ICD-10) [place] grade 2 cystocele ?N81.10 - Cystocele, unspecified (ICD-10) Depression ?F32.A - Depression, unspecified (ICD-10) Vitamin D deficiency ?E55.9 - Vitamin D deficiency, unspecified (ICD-10) Surgical History History of vaginal delivery History of 2 sections ?Z98.891 - History of uterine scar from previous surgery (ICD-10) History of tubal ligation (2006) ?Z98.51 - Tubal ligation status (ICD-10) Hx laparoscopic cholecystectomy (04/25/05) ?Z90.49 - Acquired absence of other specified parts of digestive tract (ICD-10) Family History Father Liver disease Alcohol dependence Brother Diabetes Mother Diabetes Son Family history of testicular cancer, Onset Age: 26 Other No family history of breast cancer No family history of colorectal cancer Social History (Updated 10/11/24 @ 23:37 by Erick Herrera MD) Narrative: , three kids, 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 Lives in [place] with her son. She requests her son to provide interpretation services for her and declines online broacher. Her daughter Jinny is healthcare power of warping machine operator What is your current living situation?: I presently have a place to live Problems where you live: no known problems Problems where you live details: NA mobile home In the past 12 months, utilities in danger of being shut off: no In past 12 months, lack of transportation kept you from medical appts, meetings, work, or getting things needed for daily living: no In the past 12 mos, have been you worried that your food would run out before you had money to buy more?: often true In the past 12 mos, the food you bought just didn't last and you didn't have money to buy more?: often true Highest level of school completed/degree received: 3rd grade Smoking Status: Never smoker Do you use any of these nicotine containing products: None Second hand tobacco smoke exposure: No How often do you have a drink containing alcohol: never AUDIT-C Alcohol total score: 0 Non-prescribed substance use: denies use Caffeine: Yes (coffee) How often does anyone, including family, friends and others, physically hurt you: never How often does anyone, including family, friends and others, insult or talk down to you: never How often does anyone, including family, friends and others, threaten you with harm: never How often does anyone, including family, friends and others, scream or curse at you: never service: No Health Related Social Needs: food insecurity (Z59.41) Meds Home Medications and Allergies Home Medications ?Medication ?Instructions ?Recorded ?Confirmed ?Type amlodipine 10 mg tablet 10 mg PO DAILY 07/13/24 10/11/24 History glyburide 5 mg tablet 5 mg PO DAILY 07/13/24 10/11/24 History aspirin 81 mg tablet,delayed 81 mg PO HS 07/14/24 10/11/24 History release gabapentin 300 mg capsule 600 mg PO HS 07/14/24 10/11/24 History Allergies Allergy/AdvReac Type Severity Reaction Status Date / Time No Known Drug Allergies Allergy Verified 10/11/24 22:55 Exam Narrative: Exam Narrative: She is alert and appears in no distress. She gives her own history. Eyes normal. Oropharynx with dry mucous membranes. Neck is supple without mass or adenopathy. Respirations are clear to auscultation. Cardiovascular: S1, S2, regular tachycardia. Abdomen is soft with mild to moderate epigastric tenderness. No mass. No peritonitis. Bowel sounds are present. Extremities without edema. Intact peripheral pulses. No rash. Const: Vital Signs, click to edit/add: Vital Signs - 24 hr 10/11/24 20:33 10/11/24 22:23 Temperature 96.7 F L 96.8 F L Pulse Rate [Pulse Oximeter] 117 H 92 Respiratory Rate 16 18 Blood Pressure [Ri ght Upper Arm] 178/94 H 196/87 H Pulse Oximetry 98 99 Oxygen Delivery Me thod Room Air Room Air Documenting provider has reviewed patient's vital signs: yes Hospitalist - H&P: Result Labs Labs: Short CBC 10/11/24 Range/Units 21:05 WBC 15.53 H (4.50-11.00) K/uL Hgb 14.3 (12.0-16.0) gm/dL Hct 42.6 (33.0-51.0) % Plt Count 335 (140-440) K/uL BMP 10/11/24 21:05 Sodium 136 Potassium 5.0 Chloride 102 Carbon Dioxide 13 L BUN 46 H Creatinine 0.9 Glucose 569 H* Calcium 9.7 Liver Function 10/11/24 Range/Units 21:05 Total Bilirubin 0.6 (0.1-1.5) mg/dL Direct Bilirubin 0.5 (0.0-0.5) mg/dL AST 23 (12-35) U/L ALT 25 (4-35) U/L Alkaline Phosphatase 122 (40-150) U/L Albumin 4.4 (3.3-5.0) g/dL Urine 10/11/24 Range/Units 21:20 Urine Color Yellow (Yellow) Urine Appearance Clear (Clear) Urine pH 5.5 (5.0-8.5) Ur Specific [place] 1.010 (1.000-1.030) Urine Protein Trace A (Negative) Urine Glucose (UA) 2+ A (Negative) Imaging CT scan - abdomen: Radiologist's impression: INDICATION: Epigastric pain, vomiting. TECHNIQUE: CT abdomen and pelvis acquired with 69 cc of Isovue 370 IV contrast. COMPARISON: CT abdomen and pelvis 07/12/2024. FINDINGS: Lower chest: Unremarkable. Liver: Unremarkable. Normal in size and attenuation. No suspicious masses. Gallbladder and bile ducts: Status post cholecystectomy. No abnormal biliary ductal dilatation. Pancreas: Unremarkable. No mass or inflammation. Spleen: Unremarkable. Normal in size. No masses. Adrenal glands: Unremarkable. No nodules. Kidneys: Bilateral areas of mild renal cortical thinning, likely sequela of previous insult. No stone, suspicious mass, or hydronephrosis. GI tract: Small duodenal diverticulum. Normal in caliber. No sign of mass or inflammation. Normal appendix. Vasculature: Normal caliber abdominal aorta with mild atherosclerotic calcification. Mesenteric arteries are patent. Lymph nodes: No lymphadenopathy. Peritoneum/Abdominal Wall: Unremarkable. No free air or significant free fluid. Pelvis: Bilateral tubal ligation clips. Prominent posterior fundal fibroid. Tiny focus of air within the bladder lumen. No bladder wall thickening. Bones: Unremarkable for age. IMPRESSION: 1. Tiny foci of air within the bladder lumen. Recommend correlation for recent instrumentation. Though no bladder wall thickening is visualized, infection is also in the differential. 2. Otherwise, no acute findings within the abdomen and pelvis.
[2024-10-11 23:54] LABS: Lactate Sepsis 2 Hour 1.6 mmol/L (0.5-1.9)
[2024-10-12 00:03] LABS: Magnesium* 2.4 mg/dL (1.5-2.6)
[2024-10-12] MEDS: INSULIN GLARGINE,HUM.REC.ANLOG 100 UNIT/ML INSULN.PEN 50 UNIT SUBCUT (00:05)
[2024-10-12] MEDS: PANTOPRAZOLE SODIUM 40 MG INJ IVP (00:05)
[2024-10-12 00:09] LABS: Chloride* 106 mmol/L (96-114); Potassium* 4.4 mmol/L (3.6-5.1); Sodium* 138 mmol/L (135-149)
[2024-10-12 00:12] LABS: Anion Gap 17 mEq/L (7-15); Blood Urea Nitrogen* 37 mg/dL (7-30); Carbon Dioxide* 15 mmol/L (20-32); Creatinine* 0.8 mg/dL (0.5-1.5); Est. Creatinine Clearance* 62.84; Estimated Glomerular Filt Rate 87 ml/min; Magnesium* 2.2 mg/dL (1.5-2.6)
[2024-10-12 00:14] VITALS: RESP 20; O2SAT 100
[2024-10-12 00:30] LABS: Glucose* 358 mg/dL (60-115)
[2024-10-12] MEDS: 5 % DEXTROSE IN LAC RINGER'S 1,000 ML 125 ML IV (00:51)
[2024-10-12] MEDS: INSULIN ASPART 100 UNIT/ML 15 UNIT SUBCUT (00:51)
[2024-10-12] MEDS: ACETAMINOPHEN 325 MG TABLET 650 MG PO (00:54)
[2024-10-12] MEDS: INSULIN ASPART 100 UNIT/ML SUBCUT ×2 (02:33→09:30)
[2024-10-12 03:00] VITALS: BP 156/71; PULSE 97; RESP 18; O2SAT 96
[2024-10-12 03:48] VITALS: PULSE 107
[2024-10-12] MEDS: OMEPRAZOLE 20 MG CAPSULE DR 40 MG PO (06:32)
[2024-10-12 06:38] LABS: Lactate* 0.9 mmol/L (0.5-1.9)
--- NOTE | 2024-10-12 06:40 | PC.NURSE ---
Pt arrived to the floor at 2256, alert oriented and hypertensive, otherwise vitally stable. Pt is Gabonese speaking, refused foreign language interpreter, requested son instead. Blood sugars 345 and 338. Pt denies nausea. Bowel sounds active in all 4 quadrants, abdomen soft and tender to touch. Pt states epigastric pain rated 6/10, prn tylenol given. Tele read sinus tachycardia. Pt up independently, tolerates well. Pt son at bedside. Pt in bed, appears to be resting, call light within reach.
[2024-10-12 06:42] LABS: Basophils Percent Auto 0.1 % (0.0-3.0); Hematocrit 35.7 % (33.0-51.0); Hemoglobin* 12.2 gm/dL (12.0-16.0); Immature Granulocytes Pct Auto 0.5 %; Mean Corpuscular HGB Conc 34 gm/dL (32-36); Mean Corpuscular Hemoglobin 28 pg (26-34); Mean Corpuscular Volume 83 fL (80-100); Monocytes Percent Auto 5.5 % (0.0-11.0); Neutrophils Percent Auto 82.9 % (42.0-72.0); Platelet Count* 284 K/uL (140-440); RDW Coefficient of Variation % 13.6 % (11.5-15.5); Red Blood Count 4.31 m/uL (4.00-5.20); White Blood Count* 15.88 K/uL (4.50-11.00)
[2024-10-12 06:46] LABS: Slide Review Reflex No
[2024-10-12 06:59] LABS: Chloride* 110 mmol/L (96-114)
[2024-10-12 07:00] LABS: Potassium* 3.9 mmol/L (3.6-5.1); Sodium* 137 mmol/L (135-149)
[2024-10-12 07:02] LABS: Blood Urea Nitrogen* 33 mg/dL (7-30); Creatinine* 0.6 mg/dL (0.5-1.5); Est. Creatinine Clearance* 83.79; Estimated Glomerular Filt Rate 106 ml/min
[2024-10-12 07:03] LABS: Anion Gap 9 mEq/L (7-15); Calcium* 8.8 mg/dL (8.4-10.6); Carbon Dioxide* 18 mmol/L (20-32); Glucose* 318 mg/dL (60-115)
[2024-10-12 07:06] LABS: C Reactive Protein* 7.3 mg/dL (0.5-1.0)
[2024-10-12 08:19] VITALS: BP 167/83; PULSE 83; RESP 16; TEMP 36.9; O2SAT 95
[2024-10-12 08:44] VITALS: PULSE 90
[2024-10-12] MEDS: glyBURIDE 5 MG TABLET PO (09:24)
[2024-10-12] MEDS: lisinopriL 20 MG TABLET PO (09:24)
[2024-10-12] MEDS: AMLODIPINE 10 MG TABLET PO (09:24)
[2024-10-12] MEDS: INSULIN PROT/ASP (NOVOLOG 70/30) 100 UNIT/ML 50 UNIT SUBCUT (09:30)
[2024-10-12] MEDS: SODIUM CHLORIDE 0.9 % (FLUSH) 10 ML SYRINGE 5 ML IVF (09:31)
[2024-10-12] MEDS: METFORMIN 1,000 MG TABLET 1000 MG PO (10:05)
[2024-10-12 11:28] VITALS: BP 158/61; PULSE 82; RESP 16; O2SAT 98
--- NOTE | 2024-10-12 11:54 | PM.DS1 ---
DS: Providers Provider Date Seen: 10/12/24 Date of admission: 10/11/24 22:35 Primary care physician: Guy Yen MD Admitting Clinician: Erick Herrera MD Consults: 10/12/24 00:43 Consult to Piano Builder [CONS] Routine Comment: Reason for Consult:: Social Service Consult Attending Physician on discharge: Erick Herrera MD DS: Summary Hospital Course Hospital Course: Admission histvory of present illness: 54 year old Guatemalan-speaking female with poorly controlled diabetes mellitus presents with a 3 day history of epigastric abdominal pain and vomiting. She also reports some sore throat. Symptoms started on Friday. She has been unable to keep down food but has been able to keep down some liquids. Yesterday she was seen in clinic and diagnosed with strep throat. Started on amoxicillin yesterday. Due to her illness she stopped taking her insulin on Friday. She has continued to take her lisinopril and metformin and Naprosyn. History of a laparoscopic cholecystectomy. No other previous abdominal surgeries. No previous history of abdominal pain similar to this. She was hospitalized in July with nephrolithiasis and Gram-negative bacteremia with E coli. Hemoglobin A1c at that time was 10.0. Treated with IV fluids, insulin, antiemetics, close monitoring, slow advance of diet. She much improved by the time I assessed her on the morning of 10/12/2024. No further nausea vomiting. Tolerating clear liquids as well as soft diet. Blood sugars improved from 400 down to 300. Anion gap has resolved. Status at Discharge Functional status at discharge: independent ambulation Overall status at discharge: patient is progressing back to baseline Time Spent with Patient Time attestation: Total time spent providing and/or coordinating discharge services: Time spent: Greater than 30 minutes Exam Narrative: Exam Narrative: She is alert and appears in no distress. She gives her own history. I speak with her with help of certified court interpreter. Alert and oriented x4. Friendly and cooperative. Eyes normal. Oropharynx with moist mucous membranes. Eating and drinking without difficulties. Neck is supple without mass or adenopathy. Respirations are clear to auscultation. Cardiovascular: S1, S2, regular tachycardia. Abdomen is soft with mild to moderate epigastric tenderness. No mass. No peritonitis. Bowel sounds are present. Extremities without edema. Intact peripheral pulses. No rash. Independent with transfer, station, gait. No focal motor neurologic deficits. Const: Vital Signs, click to edit/add: Vital Signs - 24 hr 10/11/24 20:33 10/11/24 22:23 10/11/24 22:55 Temperature 96.7 F L 96.8 F L 97.9 F Pulse Rate Pulse Rate [Pulse Oximeter] 117 H 92 117 H Respiratory Rate 16 18 20 Blood Pressure [Ri ght Arm] 188/91 H Blood Pressure [Ri ght Upper Arm] 178/94 H 196/87 H Pulse Oximetry 98 99 100 Oxygen Delivery Me thod Room Air Room Air Room Air 10/12/24 00:14 10/12/24 03:00 10/12/24 03:48 Temperature Pulse Rate 107 H Pulse Rate [Pulse Oximeter] 97 Respiratory Rate 20 18 Blood Pressure [Ri ght Arm] 156/71 H Blood Pressure [Ri ght Upper Arm] Pulse Oximetry 100 96 Oxygen Delivery Me thod Room Air Room Air 10/12/24 08:19 10/12/24 08:44 10/12/24 11:28 Temperature 98.5 F Pulse Rate 90 Pulse Rate [Pulse Oximeter] 83 82 Respiratory Rate 16 16 Blood Pressure [Ri ght Arm] 167/83 H 158/61 H Blood Pressure [Ri ght Upper Arm] Pulse Oximetry 95 98 Oxygen Delivery Me thod Room Air Room Air DS: Data Data Completed and Pending Labs on day of discharge: Labs from last 24 hours 10/12/24 10/11/24 10/11/24 06:21 23:50 21:20 WBC 15.88 H RBC 4.31 Hgb 12.2 Hct 35.7 MCV 83 MCH 28 MCHC 34 RDW Coeff of [place] 13.6 Plt Count 284 Neut % (Auto) 82.9 H Lymph % (Auto) 11.0 L [place] % (Auto) 5.5 Eos % (Auto) 0.0 Baso % (Auto) 0.1 Neut # (Auto) 13.20 H Lymph # (Auto) 1.70 [place] # (Auto) 0.90 Eos # (Auto) 0.00 Baso # (Auto) 0.00 Abs Immat Gran (auto) 0.10 Imm/Tot Granulo (auto) 0.5 VBG pH VBG pCO2 VBG pO2 VBG HCO3 Sodium 137 138 Potassium 3.9 4.4 Chloride 110 106 Carbon Dioxide 18 L 15 L Anion Gap 9 17 H BUN 33 H 37 H Creatinine 0.6 0.8 Estimated Creat Clear 83.79 62.84 Estimated GFR 106 87 Glucose 318 H 358 H* Lactate 0.9 1.6 Calcium 8.8 9.0 Magnesium 2.2 Total Bilirubin Direct Bilirubin AST ALT Alkaline Phosphatase C-Reactive Protein 7.3 H Total Protein Albumin Lipase Urine Color Yellow Urine Appearance Clear Urine pH 5.5 Ur Specific [place] 1.010 Urine Protein Trace A Urine Glucose (UA) 2+ A Urine Ketones 4+ A Urine Blood Trace-lysed A Urine Nitrite Negative Urine Bilirubin Negative Urine Urobilinogen 0.2 Ur Leukocyte Esterase Negative Urine RBC 0-2 Urine WBC 0-2 Ur Squamous Epith Cells Few Urine Bacteria None 10/11/24 21:05 WBC 15.53 H RBC 5.08 Hgb 14.3 Hct 42.6 MCV 84 MCH 28 MCHC 34 RDW Coeff of [place] 13.4 Plt Count 335 Neut % (Auto) 88.8 H Lymph % (Auto) 7.3 L [place] % (Auto) 3.2 Eos % (Auto) 0.0 Baso % (Auto) 0.1 Neut # (Auto) 13.80 H Lymph # (Auto) 1.10 [place] # (Auto) 0.50 Eos # (Auto) 0.00 Baso # (Auto) 0.00 Abs Immat Gran (auto) 0.10 Imm/Tot Granulo (auto) 0.6 VBG pH 7.307 L VBG pCO2 31 L VBG pO2 34.6 VBG HCO3 15 L Sodium 136 Potassium 5.0 Chloride 102 Carbon Dioxide 13 L Anion Gap 21 H BUN 46 H Creatinine 0.9 Estimated Creat Clear 55.86 Estimated GFR 76 Glucose 569 H* Lactate 2.0 H Calcium 9.7 Magnesium 2.4 Total Bilirubin 0.6 Direct Bilirubin 0.5 AST 23 ALT 25 Alkaline Phosphatase 122 C-Reactive Protein 15.7 H Total Protein 8.1 Albumin 4.4 Lipase 50 Urine Color Urine Appearance Urine pH Ur Specific [place] Urine Protein Urine Glucose (UA) Urine Ketones Urine Blood Urine Nitrite Urine Bilirubin Urine Urobilinogen Ur Leukocyte Esterase Urine RBC Urine WBC Ur Squamous Epith Cells Urine Bacteria Imaging CT scan - abdomen: Radiologist's impression: 1. Tiny foci of air within the bladder lumen. Recommend correlation for recent instrumentation. Though no bladder wall thickening is visualized, infection is also in the differential. 2. Otherwise, no acute findings within the abdomen and pelvis. Discharge Plan Discharge Disposition: Home, Self-Care Date of Admission: 10/11/24 22:35 Attending Provider on Discharge: Vince Israel Primary Care Provider: Guy Yen Condition: Improved Anticipated Discharge Date/Time: 10/12/24 11:30 Discharge Medications: New acetaminophen 325 mg tablet 650 mg PO QID PRNQty: 100 0RF ondansetron 4 mg tablet,disintegrating 4 mg PO Q6H PRN (Reason: nausea and vomiting) Qty: 10 0RF Continued ergocalciferol (vitamin D2) 1,250 mcg (50,000 unit) capsule 1,250 mcg PO QWEEK Qty: 13 3RF metformin 1,000 mg tablet 1,000 mg PO BIDWMEAL Qty: 180 1RF naproxen 500 mg tablet 500 mg PO BID Qty: 180 3RF lisinopril 40 mg tablet 40 mg PO DAILY glyburide 5 mg tablet 5 mg PO DAILY amlodipine 10 mg tablet 10 mg PO DAILY aspirin 81 mg tablet,delayed release (DR/EC) 81 mg PO HS gabapentin 300 mg capsule 600 mg PO HS Novolin 70-30 FlexPen U-100 100 unit/mL (70-30) insulin pen 45 unit subcut BID Qty: 60 1RF Discontinued amoxicillin 500 mg tablet 500 mg PO BID 10 Days Qty: 20 0RF No Action (DME) pen needle, diabetic [CareTouch Pen Needle] 31 gauge x 5/16 needle See Rx Instructions .Route Qty: 100 3RF Rx Instructions: Injects BID (DME) blood-glucose meter [Accu-Chek Guide Glucose Meter] Misc See Rx Instructions .Route Qty: 1 0RF Rx Instructions: 2 x daily testing (DME) lancets [Accu-Chek Softclix Lancets] Misc See Rx Instructions .Route Qty: 100 3RF Rx Instructions: As directed- tests 2x daily (DME) Blood Glucose Test Strip See Rx Instructions .Route Qty: 360 0RF Rx Instructions: test BID (DME) blood pressure monitor Kit See Rx Instructions .Route Qty: 1 0RF Rx Instructions: As directed Discharge Orders: Discharge Order (Routine); Ordered 10/12/24 Ordered By: Vince Israel Patient Education: Acetaminophen (By mouth), Ondansetron (By mouth), Electrolyte Supplement (By mouth), Managing Diabetes During Sick Days (DC), Diabetic Hyperglycemia (GEN), GI (Gastrointestinal) Soft Diet (GEN) Additional Instructions: 1. Follow-up with primary post acute care nurse in 2-7 days, sooner if needed Activity Level: Activity as Tolerated Activity Detail: May return to work on , 10/14/2024 without restrictions Discharge Diet: Diabetic Follow Up Appointments: Guy Yen MD [Primary Care Provider] - 10/19/24 1:45 pm Forms: Work/School Release, [facility] Info Instructions
--- NOTE | 2024-10-12 12:24 | PC.SOCIAL ---
Social work: Met with pt using gluing pressman regarding her question about applying for Medical Assistance. Pt states she has insurance from her employer but it is very expensive and does not cover well. She is wondering about whether she is eligible for applying for Medical Assistance. Recommended pt speak with a M[facility] Navigator at the [facility] or [facility] to see if she qualifies for Medical Assistance. She is familiar with [facility] and plans to stop by the office. Pt also requested social work administrator contact [facility] and request they call her. second worker called and left message with [facility] requesting they contact pt.
--- NOTE | 2024-10-12 12:30 | NUTR.NU ---
CORINNA with verbal MD consult for diabetes education. Patient admitted for hyperglycemia. Per IDt meeting, patient stopped taking her insulin due to not feeling well. Weight has been stable recently. Visited with patient with Sales Representative Electric Service present and son. Patient reports following a lower carb diet since June 2024. She reports including more fruits and non-starchy vegetables. She has reduced her portion sizes and limit carbohydrates. She reports her blood sugars have been within range. She has a diet belgica at work that supports her change in diet. RDN offered diet education, patient declined at this time. CRISTELN informed patient we can see her as an outpatient in the clinic if she is interested. No nutrition interventions. Patient to discharge home today. Thank you [employer] for your assistance with this visit.
--- NOTE | 2024-10-12 12:31 | PC.NURSE ---
Discharged home with son. All questions answered. Patient met with computing services director to discuss financial and insurance concerns. Patient also met with Wireless Architect prior to discharge. All questions answered and will f/u with PCP next week.
== END 2024-10-12 12:32 | disposition home or self-care (01) ==
LOC: ED 22:09 → MEDSURG 22:35
PROVIDERS: Admitting Provider Family Medicine; Emergency Provider Emergency Medicine; PCP Internal Medicine; Visit Provider Family Medicine
DX: E11.10 Type 2 diabetes mellitus with ketoacidosis without coma (principal); J02.0 Streptococcal pharyngitis; Z79.4 Long term (current) use of insulin; Z79.84 Long term (current) use of oral hypoglycemic drugs; R10.13 Epigastric pain; R11.10 Vomiting, unspecified; I10 Essential (primary) hypertension; Z79.82 Long term (current) use of aspirin
CPT/HCPCS: 36415; 74177; 80048; 80076; 81001; 82803; 82947; 82962; 83605; 83690; 83735; 85025; 86140; 96361; 96365; 96366; 96372; 96375; 99284; 99285; T1013; A9270; G0378; J0561; J1815; J2405; J2470; J7030; J7120; Q9967

== ENCOUNTER 2025-01-27 16:12 | Outpatient (CLI) | payer BC, SELFPAY | END 2025-01-27 16:13 | disposition home or self-care (01) | PROVIDERS: PCP Internal Medicine; Visit Provider Internal Medicine | DX: R79.89 Other specified abnormal findings of blood chemistry (principal); E78.2 Mixed hyperlipidemia; E11.9 Type 2 diabetes mellitus without complications | CPT/HCPCS: 80053; 80061; 82043; 82570 ==

== ENCOUNTER 2025-06-02 09:30 | Outpatient (CLI) | payer BC, SELFPAY ==
--- NOTE | 2025-06-02 11:04 | P.ANES_ITS ---
Anesthesia Charges Start Date/Time Anesthesia Start Date: 06/02/25 Anesthesia Start Time: 10:25 Stop Date/Time Anesthesia Stop Date: 06/02/25 Anesthesia Stop Time: 10:56 Coding CPT Codes CPT Codes: DYLLAN LWR INTST NDSC NOS - 68029 ([id number]) QK - CAMPUS REP 2-4 CNCRNT DYLLAN PROC, QX - INTERNAL MEDICINE DOCTOR SVC W/ MD MED DIRECTION, P2 - PATIENT W/MILD SYST DISEASE
--- NOTE | 2025-06-02 11:04 | W.ANESCHARGE ---
Anesthesia Charges Start Date/Time Anesthesia Start Date: 06/02/25 Anesthesia Start Time: 10:25 Stop Date/Time Anesthesia Stop Date: 06/02/25 Anesthesia Stop Time: 10:56 Coding CPT Codes CPT Codes: DYLLAN LWR INTST NDSC NOS - 89569 ([id number]) QK - THEATRICAL AGENT 2-4 CNCRNT DYLLAN PROC, QX - FILTER TIP CATCHER SVC W/ MD MED DIRECTION, P2 - PATIENT W/MILD SYST DISEASE
--- NOTE | 2025-06-02 11:05 | P.ANES_ITS ---
Anesthesia Charges Start Date/Time Anesthesia Start Date: 06/02/25 Anesthesia Start Time: 10:25 Stop Date/Time Anesthesia Stop Date: 06/02/25 Anesthesia Stop Time: 10:56 Coding CPT Codes CPT Codes: DYLLAN LWR INTST NDSC NOS - 29719 ([id number]) P2 - PATIENT W/MILD SYST DISEASE, QK - FARM EQUIPMENT TECHNICIAN 2-4 CNCRNT ANES PROC, QX - QA CONSULTANT SVC W/ MD MED DIRECTION
--- NOTE | 2025-06-02 11:05 | W.ANESCHARGE ---
Anesthesia Charges Start Date/Time Anesthesia Start Date: 06/02/25 Anesthesia Start Time: 10:25 Stop Date/Time Anesthesia Stop Date: 06/02/25 Anesthesia Stop Time: 10:56 Coding CPT Codes CPT Codes: DYLLAN LWR INTST NDSC NOS - 05499 ([id number]) P2 - PATIENT W/MILD SYST DISEASE, QK - ARCHITECTURE INSTRUCTOR 2-4 CNCRNT ANES PROC, QX - MOLDER MEAT SVC W/ MD MED DIRECTION
== END 2025-06-02 09:31 | disposition home or self-care (01) ==
LOC: OP CLINIC 09:36
PROVIDERS: PCP Internal Medicine; Visit Provider Surgery
DX: Z12.11 Encounter for screening for malignant neoplasm of colon (principal); D12.2 Benign neoplasm of ascending colon; D12.3 Benign neoplasm of transverse colon
CPT/HCPCS: 00811; 00812; 45385; T1013; J2704